=== PATIENT | female | born 1960 | race Caucasian/White ===

== ENCOUNTER 2019-12-31 12:53 | Inpatient (IN) | payer MEDICARE, MEDICAID, SELFPAY ==
[2019-12-31] VITALS (10 sets, daily range): BP systolic 117–153; BP diastolic 73–104; PULSE 82–94; RESP 16–20; TEMP 36.4–36.9; O2SAT 94–98; BMI 23.0
--- NOTE | 2019-12-31 13:01 | W.ED.ANXIETY ---
Documented by User: Bryanna Prasad 02/10/20 12:58 HPI - Anxiety General: Chief Complaint: Psychiatric Symptoms Stated Complaint: easily stressed Time Seen by Provider: 12/31/19 12:55 Source: patient Mode of arrival: ambulatory Limitations: no limitations History of Present Illness: complaint: anxiety PFS ED PFSH: Social History Smoking and tobacco status: current every day smoker Alcohol intake: never Course Vital Signs: Vital signs: Vital Signs Temperature 98.4 F 01/02/20 13:51 Pulse Rate 77 01/02/20 13:51 Respiratory Rate 18 01/02/20 13:51 Blood Pressure 122/88 01/02/20 13:51 Pulse Oximetry 99 01/02/20 13:51 MDM - Anxiety Lab Data: Labs: Lab Results 12/31/19 12/31/19 12/31/19 Range/Units 14:17 14:17 14:56 WBC 12.4 H (4.0-10.0) 10^3/ uL RBC 4.47 (4.1-5.3) 10^6/u L Hgb 13.1 (11.5-15.3) g/dL Hct 39.7 (37.0-47.0) % MCV 88.8 (81-99) fL MCH 29.3 (28.0-34.0) pg MCHC 33.0 (30.0-36.0) g/dL RDW 12.0 L (12.1-15.1) % Plt Count 328 (130-400) 10^3/c mm MPV 10.7 H (7.4-10.4) fL Neut % (Auto) 47.8 % Lymph % (Auto) 36.8 % [place] % (Auto) 10.9 % Eos % (Auto) 3.3 % Baso % (Auto) 1.0 % Neut # (Auto) 5.93 (1.8-7.7) 10^3/u L Lymph # (Auto) 4.6 (0.8-4.8) 10^3/u L [place] # (Auto) 1.4 H (0.2-0.9) 10^3/u L Eos # (Auto) 0.4 (0.0-0.8) 10^3/u L Baso # (Auto) 0.1 (0.0-0.1) 10^3/u L Nucleated RBC % (a uto) 0 % Nucleated RBCs # 0.0 /100WBC D-Dimer 0.48 (0-0.59) ug/mIFE U Sodium 137 (136-145) mmol/L Potassium 3.3 L (3.5-5.1) mmol/L Chloride 100 (98-107) mmol/L Carbon Dioxide 28 (22-29) mmol/L Anion Gap 12.3 (5-19) BUN 19 (8-23) mg/dL Creatinine 0.7 (0.5-0.9) mg/dL GFR Calculation 85.1 L (90-130) mL/min Glucose 105 (65-115) mg/dL Calculated Osmolal ity 287 (285-295) mOsm/k g Calcium 9.9 (8.5-10.5) mg/dL Total Bilirubin 0.7 (0.15-1.2) mg/dL AST 27 (0-32) U/L ALT 16 (0-33) U/L Alkaline Phosphata se 83 (35-105) IU/L Creatine Kinase 444 H* (26-192) U/L Total Protein 7.2 (6.6-8.7) g/dL Albumin 4.4 (3.5-5.2) g/dL Globulin 2.8 (1.3-4.6) g/dL Lipase 21 (13-60) U/L HCG, Qual (Negative) Urine Color (Yellow) Urine Appearance (CLEAR) Urine pH (5-7) Ur Specific Gravit y (1.005-1.030) Urine Protein (Negative) Urine Glucose (UA) (Normal) Urine Ketones (Negative) Urine Blood (Negative) Urine Nitrate (Negative) Urine Bilirubin (Negative) Urine Urobilinogen (Negative) mg/dL Ur Leukocyte Samira ase (Negative) Salicylates 1.2 L (3-10) mg/dL Urine Opiates Scre en (Negative) ng/mL Acetaminophen < 5.0 L (10-30) ug/mL Ur Barbiturates Sc reen (Negative) ng/mL Ur Phencyclidine S crn (Negative) ng/mL Ur Amphetamines Sc reen (Negative) ng/mL U Benzodiazepines Scrn (Negative) ng/mL Urine Cocaine Scre en (Negative) ng/mL U Marijuana (THC) Screen (Negative) ng/mL Ethyl Alcohol < 10 (0-10) mg/dL SARS-CoV-2 Ag (Rap id) (Negative) 12/31/19 12/31/19 12/31/19 Range/Units 15:09 15:09 15:09 WBC (4.0-10.0) 10^3/ uL RBC (4.1-5.3) 10^6/u L Hgb (11.5-15.3) g/dL Hct (37.0-47.0) % MCV (81-99) fL MCH (28.0-34.0) pg MCHC (30.0-36.0) g/dL RDW (12.1-15.1) % Plt Count (130-400) 10^3/c mm MPV (7.4-10.4) fL Neut % (Auto) % Lymph % (Auto) % [place] % (Auto) % Eos % (Auto) % Baso % (Auto) % Neut # (Auto) (1.8-7.7) 10^3/u L Lymph # (Auto) (0.8-4.8) 10^3/u L [place] # (Auto) (0.2-0.9) 10^3/u L Eos # (Auto) (0.0-0.8) 10^3/u L Baso # (Auto) (0.0-0.1) 10^3/u L Nucleated RBC % (a uto) % Nucleated RBCs # /100WBC D-Dimer (0-0.59) ug/mIFE U Sodium (136-145) mmol/L Potassium (3.5-5.1) mmol/L Chloride (98-107) mmol/L Carbon Dioxide (22-29) mmol/L Anion Gap (5-19) BUN (8-23) mg/dL Creatinine (0.5-0.9) mg/dL GFR Calculation (90-130) mL/min Glucose (65-115) mg/dL Calculated Osmolal ity (285-295) mOsm/k g Calcium (8.5-10.5) mg/dL Total Bilirubin (0.15-1.2) mg/dL AST (0-32) U/L ALT (0-33) U/L Alkaline Phosphata se (35-105) IU/L Creatine Kinase (26-192) U/L Total Protein (6.6-8.7) g/dL Albumin (3.5-5.2) g/dL Globulin (1.3-4.6) g/dL Lipase (13-60) U/L HCG, Qual Negative (Negative) Urine Color Yellow (Yellow) Urine Appearance Clear (CLEAR) Urine pH 5 (5-7) Ur Specific Gravit y 1.020 (1.005-1.030) Urine Protein Neg (Negative) Urine Glucose (UA) Norm (Normal) Urine Ketones Negative (Negative) Urine Blood Neg (Negative) Urine Nitrate Negative (Negative) Urine Bilirubin Neg (Negative) Urine Urobilinogen Norm (Negative) mg/dL Ur Leukocyte Samira ase Negative (Negative) Salicylates (3-10) mg/dL Urine Opiates Scre en (Negative) ng/mL Acetaminophen (10-30) ug/mL Ur Barbiturates Sc reen (Negative) ng/mL Ur Phencyclidine S crn (Negative) ng/mL Ur Amphetamines Sc reen (Negative) ng/mL U Benzodiazepines Scrn (Negative) ng/mL Urine Cocaine Scre en (Negative) ng/mL U Marijuana (THC) Screen (Negative) ng/mL Ethyl Alcohol (0-10) mg/dL SARS-CoV-2 Ag (Rap id) Negative (Negative) 12/31/19 Range/Units 15:09 WBC (4.0-10.0) 10^3/ uL RBC (4.1-5.3) 10^6/u L Hgb (11.5-15.3) g/dL Hct (37.0-47.0) % MCV (81-99) fL MCH (28.0-34.0) pg MCHC (30.0-36.0) g/dL RDW (12.1-15.1) % Plt Count (130-400) 10^3/c mm MPV (7.4-10.4) fL Neut % (Auto) % Lymph % (Auto) % [place] % (Auto) % Eos % (Auto) % Baso % (Auto) % Neut # (Auto) (1.8-7.7) 10^3/u L Lymph # (Auto) (0.8-4.8) 10^3/u L [place] # (Auto) (0.2-0.9) 10^3/u L Eos # (Auto) (0.0-0.8) 10^3/u L Baso # (Auto) (0.0-0.1) 10^3/u L Nucleated RBC % (a uto) % Nucleated RBCs # /100WBC D-Dimer (0-0.59) ug/mIFE U Sodium (136-145) mmol/L Potassium (3.5-5.1) mmol/L Chloride (98-107) mmol/L Carbon Dioxide (22-29) mmol/L Anion Gap (5-19) BUN (8-23) mg/dL Creatinine (0.5-0.9) mg/dL GFR Calculation (90-130) mL/min Glucose (65-115) mg/dL Calculated Osmolal ity (285-295) mOsm/k g Calcium (8.5-10.5) mg/dL Total Bilirubin (0.15-1.2) mg/dL AST (0-32) U/L ALT (0-33) U/L Alkaline Phosphata se (35-105) IU/L Creatine Kinase (26-192) U/L Total Protein (6.6-8.7) g/dL Albumin (3.5-5.2) g/dL Globulin (1.3-4.6) g/dL Lipase (13-60) U/L HCG, Qual (Negative) Urine Color (Yellow) Urine Appearance (CLEAR) Urine pH (5-7) Ur Specific Gravit y (1.005-1.030) Urine Protein (Negative) Urine Glucose (UA) (Normal) Urine Ketones (Negative) Urine Blood (Negative) Urine Nitrate (Negative) Urine Bilirubin (Negative) Urine Urobilinogen (Negative) mg/dL Ur Leukocyte Samira ase (Negative) Salicylates (3-10) mg/dL Urine Opiates Scre en Negative (Negative) ng/mL Acetaminophen (10-30) ug/mL Ur Barbiturates Sc reen Negative (Negative) ng/mL Ur Phencyclidine S crn Negative (Negative) ng/mL Ur Amphetamines Sc reen Negative (Negative) ng/mL U Benzodiazepines Scrn Negative (Negative) ng/mL Urine Cocaine Scre en Negative (Negative) ng/mL U Marijuana (THC) Screen Positive H (Negative) ng/mL Ethyl Alcohol (0-10) mg/dL SARS-CoV-2 Ag (Rap id) (Negative) Discharge Plan Discharge Patient Disposition: Admitted As Inpatient Admit Provider: Hever Chang Clinical Impression: Bipolar disorder, current episode mixed, moderate, Acute psychosis, Suicidal ideation Condition: Stable Discharge Diet: Usual diet Discharge Activity: Use walker/crutches as instructed Coding Level of Care Code ED Flag Car Driver for Chg Fwd Exam Comprehensive Documented by User: Audie South DO 01/03/20 07:51 HPI - Anxiety General: Chief Complaint: Psychiatric Symptoms Stated Complaint: easily stressed Time Seen by Provider: 12/31/19 12:55 History of Present Illness: HPI narrative: Extent 1-year-old female history of bipolar disorder she has racing thoughts and inappropriate laughter this morning. She basically last set anything we discussed. She is not been taking her medication she states she recently became homeless she had been staying at [facility] for wound revision others not allow this daily rating more. Said multiple psychiatric missions in the past seen her previously she stated that she been diagnosed with lung cancer although there is nothing on exam or imaging or any other lab work suggestive of that I do not know if we still confirmed that yet or not. Her chest x-ray certainly does not support that diagnosis. She denies any hemoptysis she has had some cough and shortness of breath and diarrhea. MD complaint: anxiety Onset (ago): day(s) Severity: mild Place: other (Homeless) History of similar episodes: Yes Provoking factors: emotional stress Relieving factors: nothing Exacerbating factors: nothing Associated symptoms: Deny anorexia, chest pain, chills, confusion, diaphoresis, fever(s), headache(s), malaise, nausea, palpitations, short of breath, syncope, vomiting or weakness Review of Systems Const: Denies: fever(s), chills, malaise or diaphoresis ENMT: Denies: throat pain, ear or mastoid pain, nasal discharge or nasal congestion Card: Denies: chest pain, palpitations or syncope Resp: Denies: dyspnea, productive cough or non-productive cough GI: Denies: nausea or vomiting : Denies: flank pain, difficulty voiding, dysuria, urinary frequency or urinary urgency Skin/Breast: Denies: rash or pruritus Neuro: Denies: headache(s) or confusion PFSH ED PFSH: Social History Smoking and tobacco status: current every day smoker Alcohol intake: never Physical Exam Const: COMMON NORMALS: no acute distress GENERAL APPEARANCE: cooperative and comfortable ORIENTATION/CONSCIOUSNESS: Yes awake, Yes oriented to person, Yes oriented to place and Yes oriented to time HENMT: COMMON NORMALS: normocephalic, atraumatic and hearing grossly normal bilaterally HEAD & SCALP: normocephalic and atraumatic Eye: COMMON NORMALS: Equal, round and reactive pupils present, EOMs intact bilaterally, conjunctivae normal and no scleral icterus CONJUNCTIVA: Yes conjunctivae normal PUPIL: Yes Equal, round and reactive pupils present Neck/C-Spine: COMMON NORMALS: full ROM, no lymphadenopathy, supple and no JVD Lymph: LYMPHATIC: no lymphadenopathy noted and no lymphedema noted Resp: COMMON NORMALS: normal respiratory effort, No retractions, No use of accessory muscles and clear to auscultation bilaterally AUSCULTATION: clear to auscultation bilaterally Cardio: COMMON NORMALS: no JVD, regular rate, regular rhythm and No murmurs present (Cardio) RATE: regular rate RHYTHM: regular rhythm GI: COMMON NORMALS: Soft to palpation and No hepatosplenomegaly present AUSCULTATION: Yes normoactive bowel sounds PALPATION: Yes Soft to palpation, No Tenderness to palpation present (GI), No Guarding due to palpation present (GI) and Yes No hepatosplenomegaly present Extremity: COMMON NORMALS: normal to inspection, capillary refill normal, no clubbing, cyanosis or edema, no calf tenderness and no pedal edema Neuro: SENSORIUM/ORIENTATION: Yes oriented to person, Yes oriented to place and Yes oriented to time Skin: COMMON NORMALS: no rashes or lesions noted GENERAL SKIN EXAM: no rashes or lesions noted Course Vital Signs: Vital signs: Vital Signs Temperature 98.4 F 01/02/20 13:51 Pulse Rate 77 01/02/20 13:51 Respiratory Rate 18 01/02/20 13:51 Blood Pressure 122/88 01/02/20 13:51 Pulse Oximetry 99 01/02/20 13:51 MDM - Anxiety MDM Narrative: Medical decision making narrative: Discussed with Dr. kendrick patient will be admitted for manic episode of her bipolar. Additionally she has vocalized suicidal ideation intermittently while in the emergency room. Orders written Lab Data: Labs: Lab Results 12/31/19 12/31/19 12/31/19 Range/Units 14:17 14:17 14:56 WBC 12.4 H (4.0-10.0) 10^3/ uL RBC 4.47 (4.1-5.3) 10^6/u L Hgb 13.1 (11.5-15.3) g/dL Hct 39.7 (37.0-47.0) % MCV 88.8 (81-99) fL MCH 29.3 (28.0-34.0) pg MCHC 33.0 (30.0-36.0) g/dL RDW 12.0 L (12.1-15.1) % Plt Count 328 (130-400) 10^3/c mm MPV 10.7 H (7.4-10.4) fL Neut % (Auto) 47.8 % Lymph % (Auto) 36.8 % [place] % (Auto) 10.9 % Eos % (Auto) 3.3 % Baso % (Auto) 1.0 % Neut # (Auto) 5.93 (1.8-7.7) 10^3/u L Lymph # (Auto) 4.6 (0.8-4.8) 10^3/u L [place] # (Auto) 1.4 H (0.2-0.9) 10^3/u L Eos # (Auto) 0.4 (0.0-0.8) 10^3/u L Baso # (Auto) 0.1 (0.0-0.1) 10^3/u L Nucleated RBC % (a uto) 0 % Nucleated RBCs # 0.0 /100WBC D-Dimer 0.48 (0-0.59) ug/mIFE U Sodium 137 (136-145) mmol/L Potassium 3.3 L (3.5-5.1) mmol/L Chloride 100 (98-107) mmol/L Carbon Dioxide 28 (22-29) mmol/L Anion Gap 12.3 (5-19) BUN 19 (8-23) mg/dL Creatinine 0.7 (0.5-0.9) mg/dL GFR Calculation 85.1 L (90-130) mL/min Glucose 105 (65-115) mg/dL Calculated Osmolal ity 287 (285-295) mOsm/k g Calcium 9.9 (8.5-10.5) mg/dL Total Bilirubin 0.7 (0.15-1.2) mg/dL AST 27 (0-32) U/L ALT 16 (0-33) U/L Alkaline Phosphata se 83 (35-105) IU/L Creatine Kinase 444 H* (26-192) U/L Total Protein 7.2 (6.6-8.7) g/dL Albumin 4.4 (3.5-5.2) g/dL Globulin 2.8 (1.3-4.6) g/dL Lipase 21 (13-60) U/L HCG, Qual (Negative) Urine Color (Yellow) Urine Appearance (CLEAR) Urine pH (5-7) Ur Specific Gravit y (1.005-1.030) Urine Protein (Negative) Urine Glucose (UA) (Normal) Urine Ketones (Negative) Urine Blood (Negative) Urine Nitrate (Negative) Urine Bilirubin (Negative) Urine Urobilinogen (Negative) mg/dL Ur Leukocyte Samira ase (Negative) Salicylates 1.2 L (3-10) mg/dL Urine Opiates Scre en (Negative) ng/mL Acetaminophen < 5.0 L (10-30) ug/mL Ur Barbiturates Sc reen (Negative) ng/mL Ur Phencyclidine S crn (Negative) ng/mL Ur Amphetamines Sc reen (Negative) ng/mL U Benzodiazepines Scrn (Negative) ng/mL Urine Cocaine Scre en (Negative) ng/mL U Marijuana (THC) Screen (Negative) ng/mL Ethyl Alcohol < 10 (0-10) mg/dL SARS-CoV-2 Ag (Rap id) (Negative) 10/03/20 10/03/20 10/03/20 Range/Units 15:09 15:09 15:09 WBC (4.0-10.0) 10^3/ uL RBC (4.1-5.3) 10^6/u L Hgb (11.5-15.3) g/dL Hct (37.0-47.0) % MCV (81-99) fL MCH (28.0-34.0) pg MCHC (30.0-36.0) g/dL RDW (12.1-15.1) % Plt Count (130-400) 10^3/c mm MPV (7.4-10.4) fL Neut % (Auto) % Lymph % (Auto) % [place] % (Auto) % Eos % (Auto) % Baso % (Auto) % Neut # (Auto) (1.8-7.7) 10^3/u L Lymph # (Auto) (0.8-4.8) 10^3/u L [place] # (Auto) (0.2-0.9) 10^3/u L Eos # (Auto) (0.0-0.8) 10^3/u L Baso # (Auto) (0.0-0.1) 10^3/u L Nucleated RBC % (a uto) % Nucleated RBCs # /100WBC D-Dimer (0-0.59) ug/mIFE U Sodium (136-145) mmol/L Potassium (3.5-5.1) mmol/L Chloride (98-107) mmol/L Carbon Dioxide (22-29) mmol/L Anion Gap (5-19) BUN (8-23) mg/dL Creatinine (0.5-0.9) mg/dL GFR Calculation (90-130) mL/min Glucose (65-115) mg/dL Calculated Osmolal ity (285-295) mOsm/k g Calcium (8.5-10.5) mg/dL Total Bilirubin (0.15-1.2) mg/dL AST (0-32) U/L ALT (0-33) U/L Alkaline Phosphata se (35-105) IU/L Creatine Kinase (26-192) U/L Total Protein (6.6-8.7) g/dL Albumin (3.5-5.2) g/dL Globulin (1.3-4.6) g/dL Lipase (13-60) U/L HCG, Qual Negative (Negative) Urine Color Yellow (Yellow) Urine Appearance Clear (CLEAR) Urine pH 5 (5-7) Ur Specific Gravit y 1.020 (1.005-1.030) Urine Protein Neg (Negative) Urine Glucose (UA) Norm (Normal) Urine Ketones Negative (Negative) Urine Blood Neg (Negative) Urine Nitrate Negative (Negative) Urine Bilirubin Neg (Negative) Urine Urobilinogen Norm (Negative) mg/dL Ur Leukocyte Samira ase Negative (Negative) Salicylates (3-10) mg/dL Urine Opiates Scre en (Negative) ng/mL Acetaminophen (10-30) ug/mL Ur Barbiturates Sc reen (Negative) ng/mL Ur Phencyclidine S crn (Negative) ng/mL Ur Amphetamines Sc reen (Negative) ng/mL U Benzodiazepines Scrn (Negative) ng/mL Urine Cocaine Scre en (Negative) ng/mL U Marijuana (THC) Screen (Negative) ng/mL Ethyl Alcohol (0-10) mg/dL SARS-CoV-2 Ag (Rap id) Negative (Negative) 12/31/19 Range/Units 15:09 WBC (4.0-10.0) 10^3/ uL RBC (4.1-5.3) 10^6/u L Hgb (11.5-15.3) g/dL Hct (37.0-47.0) % MCV (81-99) fL MCH (28.0-34.0) pg MCHC (30.0-36.0) g/dL RDW (12.1-15.1) % Plt Count (130-400) 10^3/c mm MPV (7.4-10.4) fL Neut % (Auto) % Lymph % (Auto) % [place] % (Auto) % Eos % (Auto) % Baso % (Auto) % Neut # (Auto) (1.8-7.7) 10^3/u L Lymph # (Auto) (0.8-4.8) 10^3/u L [place] # (Auto) (0.2-0.9) 10^3/u L Eos # (Auto) (0.0-0.8) 10^3/u L Baso # (Auto) (0.0-0.1) 10^3/u L Nucleated RBC % (a uto) % Nucleated RBCs # /100WBC D-Dimer (0-0.59) ug/mIFE U Sodium (136-145) mmol/L Potassium (3.5-5.1) mmol/L Chloride (98-107) mmol/L Carbon Dioxide (22-29) mmol/L Anion Gap (5-19) BUN (8-23) mg/dL Creatinine (0.5-0.9) mg/dL GFR Calculation (90-130) mL/min Glucose (65-115) mg/dL Calculated Osmolal ity (285-295) mOsm/k g Calcium (8.5-10.5) mg/dL Total Bilirubin (0.15-1.2) mg/dL AST (0-32) U/L ALT (0-33) U/L Alkaline Phosphata se (35-105) IU/L Creatine Kinase (26-192) U/L Total Protein (6.6-8.7) g/dL Albumin (3.5-5.2) g/dL Globulin (1.3-4.6) g/dL Lipase (13-60) U/L HCG, Qual (Negative) Urine Color (Yellow) Urine Appearance (CLEAR) Urine pH (5-7) Ur Specific Gravit y (1.005-1.030) Urine Protein (Negative) Urine Glucose (UA) (Normal) Urine Ketones (Negative) Urine Blood (Negative) Urine Nitrate (Negative) Urine Bilirubin (Negative) Urine Urobilinogen (Negative) mg/dL Ur Leukocyte Samira ase (Negative) Salicylates (3-10) mg/dL Urine Opiates Scre en Negative (Negative) ng/mL Acetaminophen (10-30) ug/mL Ur Barbiturates Sc reen Negative (Negative) ng/mL Ur Phencyclidine S crn Negative (Negative) ng/mL Ur Amphetamines Sc reen Negative (Negative) ng/mL U Benzodiazepines Scrn Negative (Negative) ng/mL Urine Cocaine Scre en Negative (Negative) ng/mL U Marijuana (THC) Screen Positive H (Negative) ng/mL Ethyl Alcohol (0-10) mg/dL SARS-CoV-2 Ag (Rap id) (Negative) Discharge Plan Discharge Patient Disposition: Admitted As Inpatient Admit Provider: Hever Chang Clinical Impression: Bipolar disorder, current episode mixed, moderate, Acute psychosis, Suicidal ideation Condition: Stable Discharge Diet: Usual diet Discharge Activity: Use walker/crutches as instructed Coding Level of Care Code ED Flag Car Driver for Joyg Fwd Exam Comprehensive
--- NOTE | 2019-12-31 13:18 | XRR_ITS ---
PROCEDURE INFORMATION: Exam: XR Chest, 1 View Exam date and time: 12/31/2019 1:19 PM Age: 59 years old Clinical indication: Cough and dyspnea; Additional info: Dyspnea/cough TECHNIQUE: Imaging protocol: XR of the chest Views: 1 view. COMPARISON: CR Chest 1 [place] [id number] 09/15/2018 5:40 PM FINDINGS: Tubes, catheters and devices: Stable surgical clips over the right hilum. Lungs: Stable hyperaerated lungs consistent with deep inspiratory effort vs significant reactive airway disease vs moderate COPD . Pleural space: Unremarkable. No pleural effusion. No pneumothorax. Heart/Mediastinum: Unremarkable. No cardiomegaly. Vasculature: Calcification of the thoracic aorta and/or great vessels consistent with atherosclerotic vessel disease. Bones/joints: Unremarkable. XR/XR chest 1V portable [id number] IMPRESSION: Stable hyperaerated lungs consistent with deep inspiratory effort vs significant reactive airway disease vs moderate COPD .
[2019-12-31] MEDS: LORazepam 2 mg/mL INJ 1 mL IM (14:11)
[2019-12-31] MEDS: ziprasidone 20 mg/mL SDV 10 MG IM (14:12)
[2019-12-31 14:46] LABS: Basophils # 0.1 10^3/uL (0.0-0.1); Eosinophils # 0.4 10^3/uL (0.0-0.8); Eosinophils % 3.3 %; Hematocrit 39.7 % (37.0-47.0); Hemoglobin 13.1 g/dL (11.5-15.3); Lymphocytes # 4.6 10^3/uL (0.8-4.8); Lymphocytes % 36.8 %; Mean Corpuscular Hemoglobin 29.3 pg (28.0-34.0); Mean Corpuscular Volume 88.8 fL (81-99); Mean Platelet Volume 10.7 fL (7.4-10.4); Monocytes # 1.4 10^3/uL (0.2-0.9); Monocytes % 10.9 %; Neutrophils # 5.93 10^3/uL (1.8-7.7); Neutrophils % 47.8 %; Nucleated Red Blood Cells % 0 %; Platelet Count 328 10^3/cmm (130-400); Red Blood Count 4.47 10^6/uL (4.1-5.3); White Blood Count 12.4 10^3/uL (4.0-10.0)
[2019-12-31 15:13] LABS: Alanine Aminotransferase 16 U/L (0-33); Albumin Level 4.4 g/dL (3.5-5.2); Alkaline Phosphatase 83 IU/L (35-105); Anion Gap 12.3 (5-19); Aspartate Amino Transferase 27 U/L (0-32); Blood Urea Nitrogen 19 mg/dL (8-23); Calcium 9.9 mg/dL (8.5-10.5); Carbon Dioxide 28 mmol/L (22-29); Chloride 100 mmol/L (98-107); Globulin 2.8 g/dL (1.3-4.6); Glomerular Filtration Rate 85.1 mL/min (90-130); Glucose 105 mg/dL (65-115); Lipase 21 U/L (13-60); Osmolality Calculated 287 mOsm/kg (285-295); Potassium 3.3 mmol/L (3.5-5.1); Salicylate 1.2 mg/dL (3-10); Sodium 137 mmol/L (136-145); Total Bilirubin 0.7 mg/dL (0.15-1.2); Total Protein 7.2 g/dL (6.6-8.7)
[2019-12-31 15:16] LABS: Add Urine Microscopic? NO
[2019-12-31 15:18] LABS: Acetaminophen < 5.0 ug/mL (10-30); Alcohol Level < 10 mg/dL (0-10)
[2019-12-31 15:19] LABS: Creatine Phosphokinase 444 U/L (26-192)
[2019-12-31 15:26] LABS: Urine Appearance Clear (CLEAR); Urine Color Yellow (Yellow)
[2019-12-31 15:27] LABS: Bilirubin Urine Neg (Negative); Blood Urine Neg (Negative); Glucose Urine UA Norm (Normal); Ketones Urine Negative (Negative); Leukocyte Esterase Urine Negative (Negative); Nitrate Urine Negative (Negative); Protein Urine Neg (Negative); Urobilinogen Urine Norm (Negative); pH Urine 5 (5-7)
[2019-12-31 15:28] LABS: HCG Qualitative Urine. Negative (Negative)
[2019-12-31 15:33] LABS: Amphetamines Screen Urine Negative (Negative); Barbiturates Screen Urine Negative (Negative); Benzodiazepines Screen Urine Negative (Negative); Cocaine Screen Urine Negative (Negative); Opiate Screen Urine Negative (Negative); PCP Screen Urine Negative (Negative); THC Screen Urine Positive (Negative)
[2019-12-31 15:36] LABS: D Dimer 0.48 ug/mIFEU (0-0.59)
[2019-12-31 15:36] LABS: SARS Covid-2 Antigen Negative (Negative)
[2019-12-31] MEDS: potassium chloride oral liq 20 mEq/15 mL UDC 40 MEQ PO (16:41)
[2020-01-01] MEDS: hyDROXYzine 25 mg Capsule 50 MG PO ×2 (00:05→20:12)
[2020-01-01] MEDS: acetaminophen 325 mg Tablet 650 MG PO (00:05)
--- NOTE | 2020-01-01 00:09 | PC.NURSE ---
PRN VISTARIL ADMINISTERED VISTARIL 50MG PO FOR PT C/O INCREASING ANXIETY. WILL MONITOR FOR MEDICATION EFFECTIVENESS.
[2020-01-01 06:00] VITALS: BP 129/83; PULSE 87; RESP 18; TEMP 36.5; O2SAT 95
[2020-01-01 07:20] LABS: Glucose Point of Care 107 mg/dL (70-110)
[2020-01-01] MEDS: venlafaxine ER (24HR) 150 mg Capsule PO (08:02)
[2020-01-01] MEDS: donepezil 5 MG Tablet 10 MG PO (08:02)
[2020-01-01] MEDS: metformin 500 mg Tablet PO (08:03)
[2020-01-01] MEDS: metoprolol tartrate 50 mg Tablet PO (08:03)
[2020-01-01] MEDS: hydroCHLOROthiazide 25 mg Tablet PO (08:03)
[2020-01-01] MEDS: levothyroxine 125 mcg Tablet PO (08:03)
[2020-01-01] MEDS: gabapentin 400 mg Capsule 800 MG PO ×3 (08:03→20:12)
[2020-01-01] MEDS: lisinopril 20 mg Tablet PO (08:03)
[2020-01-01] MEDS: montelukast sodium 10 mg Tablet PO (08:03)
[2020-01-01] MEDS: BuSPIRONE 10 mg Tablet PO ×2 (08:03→17:05)
[2020-01-01 09:19] LABS: Anion Gap 12.6 (5-19); Blood Urea Nitrogen 19 mg/dL (8-23); Calcium 9.4 mg/dL (8.5-10.5); Carbon Dioxide 25 mmol/L (22-29); Chloride 105 mmol/L (98-107); Creatine Phosphokinase 229 U/L (26-192); Glomerular Filtration Rate 101.6 mL/min (90-130); Glucose 179 mg/dL (65-115); Osmolality Calculated 295 mOsm/kg (285-295); Potassium 3.6 mmol/L (3.5-5.1); Sodium 139 mmol/L (136-145)
--- NOTE | 2020-01-01 10:20 | PM.NHP ---
Providers/Chief Complaint Admitting Physician: Davis Cannon M.D. Primary Care Provider: Adilene Mathew MD Referral Source: [facility] Chief Complaint: easily stressed HPI NPU History of Present Illness Manasa Shetty is a 59 year old female with a history of bipolar disorder presented to the ER with racing thoughts and inappropriate laughter. She laughed at anything we discussed. She says she has been taking her medication. She states she recently became homeless. [place] [facility] [place] and was like to go back there. She has had multiple psychiatric admissions in the past. She says she been diagnosed with lung cancer although there is nothing on exam or imaging or any other lab work suggestive of that. Her chest x-ray does not support the diagnosis. She denies any hemoptysis but has had some cough, shortness of breath and diarrhea. Review of Systems Narrative: Const: Denies: fever(s), chills, malaise or diaphoresis ENMT: Denies: throat pain, ear or mastoid pain, nasal discharge or nasal congestion Card: Denies: chest pain, palpitations or syncope Resp: Denies: dyspnea, productive cough or non-productive cough GI: Denies: nausea or vomiting : Denies: flank pain, difficulty voiding, dysuria, urinary frequency or urinary urgency Skin/Breast: Denies: rash or pruritus Neuro: Denies: headache(s) or confusion Meds NPU Home Medications Medication Instructions Recorded Confirmed Last Taken Type buspirone 10 mg PO BID 12/31/19 12/31/19 Unknown History donepezil 10 mg PO DAILY 12/31/19 12/31/19 Unknown History fluticasone propionate See Rx Instructions .ROUTE .COMPLEX 12/31/19 12/31/19 Unknown History gabapentin 800 mg PO TID 12/31/19 12/31/19 Unknown History levothyroxine 125 mcg PO DAILY 12/31/19 12/31/19 Unknown History lisinopril-hydrochlorothiazide 1 tab PO DAILY 12/31/19 12/31/19 Unknown History metoprolol tartrate 50 mg PO DAILY 12/31/19 12/31/19 Unknown History montelukast 10 mg PO DAILY 12/31/19 12/31/19 Unknown History metformin [Glucophage] 500 mg PO DAILY 01/01/20 01/01/20 12/31/19 History venlafaxine 75 mg PO DAILY 01/01/20 01/01/20 12/31/19 History Allergies Allergy/AdvReac Type Severity Reaction Status Date / Time Sulfa (Sulfonamide Allergy ADR-Seizure Verified 12/31/19 13:20 Antibiotics) [facility] NPU Other Psychiatric History: Other Psychiatric History: Patient states she has had episodes like this since early . She had been on lithium and Cymbalta. She was taken off of both of them because of an evolving liver problem. A review of the NIH literature and it correlates there is no known interaction between liver pathology and lithium, so I'm reinstating it without the Cymbalta. She remembers that it was helpful in stabilizing her mood. Supplemental [facility] Information: The patient indicates that her dad was profoundly violent from PTSD which he acquired in [place]. Mental Status Exam MSE Comments: Ms. Shetty is a 59-year-old female who presents at her stated age. She is somewhat disheveled and disorganized. There is significant apparently uncontrollable movement disorder, as she never sits still when in a chair. Although she can ambulate with a walker and the movement symptoms are suppressed. Mood is anxious and dysphoric. Affect is clearly inappropriate at times. She frequently laughs as she describes her unhappiness and troublesome symptoms. Thought processes are racing and given to looseness of association or flight of ideas. There is, however, no evidence of psychosis such as but not limited to hallucinations, delusions or ideas of reference. Cognitive functions are partially intact; she understood very well my explanation of my planned pharmacotherapy and, ultimately, discharge planning. She remembers me from years ago. She feels hopeless, as if her disease will always burdening her with misfortune and failure. Suicidal ideation persists but there is no homicidal ideation, plan or intent. Vitals/I&O/Wt Last Vital Signs Temp 97.7 F 01/01/20 06:00 Pulse 87 01/01/20 06:00 Resp 18 01/01/20 06:00 BP 129/83 01/01/20 06:00 Pulse Ox 95 01/01/20 06:00 Weight last 48 hrs Weight 178 lb Weight 130 lb Data NPU : 12/31/19 14:17 01/01/20 08:40 A&P Assessment and plan (1) Bipolar disorder, current episode mixed, moderate: The patient is mental status clearly documents a mixed episode. I believe lithium will be helpful and the context of weaning her off of venlafaxine at a large dose. Status: Acute Involuntary Hold Information 96 Hour Hold: 96 Hour Involuntary Admission: Yes 96 Hour Hold Ending Date: 01/06/20 96 Hour Hold Ending Time: 12:01 Attestations [facility] Medical Necessity Statement*: I anticipate 5-7 midnights additional hospital stay Time Spent in Patient Care: Greater than 35 minutes (>than 50% of time spent in counselling and/or direct pt care on unit). 90 minutes. Consultation with pharmacy. Consultation with medications nurse. Order entries. Patient interview and documentation. Patient education. 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
[2020-01-01] MEDS: loperamide 2 mg Capsule PO (12:51)
[2020-01-01 13:15] VITALS: BP 99/65; PULSE 68; RESP 16; TEMP 36.3; O2SAT 98
[2020-01-01] MEDS: lithium carbonate 150 mg Capsule PO (17:04)
[2020-01-01] MEDS: nicotine 2 mg Gum BUCCAL ×2 (17:05→20:11)
[2020-01-01] MEDS: venlafaxine ER (24HR) 75 mg Capsule PO (17:05)
[2020-01-01] MEDS: trazodone 50 mg Tablet PO (20:12)
[2020-01-01 20:58] LABS: Glucose Point of Care 126 mg/dL (70-110)
[2020-01-01 21:12] VITALS: BP 105/71; PULSE 73; RESP 17; TEMP 36.8; O2SAT 97
[2020-01-02 05:10] VITALS: BP 112/71; PULSE 81; RESP 16; TEMP 36.5; O2SAT 98
[2020-01-02] MEDS: albuterol 8 gm MDI 2 PUFF INHALATION ×2 (05:53→09:04)
[2020-01-02 05:54] VITALS: PULSE 65; RESP 18; O2SAT 95
[2020-01-02] MEDS: venlafaxine ER (24HR) 150 mg Capsule PO (06:13)
[2020-01-02 06:51] LABS: Glucose Point of Care 98 mg/dL (70-110)
[2020-01-02] MEDS: lithium carbonate 150 mg Capsule PO (08:01)
[2020-01-02] MEDS: gabapentin 400 mg Capsule 800 MG PO (08:01)
[2020-01-02] MEDS: BuSPIRONE 10 mg Tablet PO (08:02)
[2020-01-02] MEDS: metoprolol tartrate 50 mg Tablet PO (08:02)
[2020-01-02] MEDS: hydroCHLOROthiazide 25 mg Tablet PO (08:02)
[2020-01-02] MEDS: levothyroxine 125 mcg Tablet PO (08:02)
[2020-01-02] MEDS: montelukast sodium 10 mg Tablet PO (08:02)
[2020-01-02] MEDS: lisinopril 20 mg Tablet PO (08:02)
[2020-01-02] MEDS: donepezil 5 MG Tablet 10 MG PO (08:02)
[2020-01-02] MEDS: loperamide 2 mg Capsule PO (08:02)
[2020-01-02] MEDS: metformin 500 mg Tablet PO (08:02)
[2020-01-02] MEDS: nicotine 2 mg Gum BUCCAL (08:22)
[2020-01-02] MEDS: amoxicillin-clav 875-125 mg Tablet 1 TAB PO (08:22)
[2020-01-02 09:03] VITALS: PULSE 76; RESP 18; O2SAT 98
[2020-01-02 09:08] VITALS: PULSE 77
--- NOTE | 2020-01-02 13:27 | P.DS_ITS ---
Diagnoses at Discharge Discharge Diagnosis (1) Bipolar disorder, current episode mixed, moderate: Status: Chronic Problem details: The patient has been stepped down to a lower dose of venlafaxine, with possible weaning her off of it. Reason for Visit Reason for Visit: easily stressed Hospital Course Hospital Course Patient came here and distress she had some memory problems and was confused. Her medications have been stabilized and she is now much clearer. She is on a walker and can ambulate with its assistance. She is eager to pursue discharge and is competent, per my assessment today, to return to the outpatient environment with outpatient follow-up and home health care. Involuntary Hold Information 96 Hour Hold: 96 Hour Involuntary Admission: No 96 Hour Hold Ending Date: 01/06/20 96 Hour Hold Ending Time: 12:01 Comments: Rescission application filed. Mental Status Exam MSE Comments: Ms. Tate is a 59-year-old female who presents at her stated age. She is not disheveled and much better organized. There is significant apparently uncontrollable movement disorder, as she never sits still when in a chair. Although she can ambulate with a walker and the movement symptoms are diminished. Mood is cheerful today and affect is bright. Thought processes are measured and free of looseness of association and flight of ideas. There is, no evidence of psychosis such as but not limited to hallucinations, delusions or ideas of reference. Cognitive functions are partially intact; she understood very well my explanation of my planned pharmacotherapy and, ultimately, discharge planning. She remembers me from years ago. She feels hopeful. She denies suicidal or homicidal ideation, plan or intent. Cognitive functions are coherent and free of disruption from psychosis. She has very quickly and very rapidly improved. Discharge Data Data Completed and Pending: Completed Studies During Hospitalization Category Date Time Status XR chest 1V bessy ble 00253 Stat Exams 12/31/19 13:18 Completed Labs from last 24 hours 01/02/20 01/01/20 06:44 20:54 POC Glucose 98 126 Vitals: Last Vital Signs Temp 97.7 F 01/02/20 05:10 Pulse 77 01/02/20 09:08 Resp 18 01/02/20 09:03 BP 112/71 01/02/20 05:10 Pulse Ox 98 01/02/20 09:03 Discharge Plan Discharge Patient Disposition: Home Condition: Stable Prescriptions: New venlafaxine 150 mg Capsule,Extended Release 24hr 150 mg PO QAM 30 Days Qty: 30 RF: 1 amoxicillin-pot clavulanate 875-125 mg Tablet 1 tab PO BID 7 Days Qty: 14 RF: 0 ipratropium-albuterol 0.5 mg-3 mg(2.5 mg base)/3 mL Solution For Nebulization 3 ml inhalation Q4H PRN (Reason: Shortness Of Breath) 30 Days Qty: 1 RF: 0 Advair Diskus 500-50 mcg/dose Blister With Device 1 puff inhalation BID.RESPIRATORY 30 Days Qty: 1 RF: 0 Ventolin HFA 90 mcg/actuation Hfa Aerosol Inhaler 2 puff inhalation Q4H.RESPIRATORY PRN (Reason: Shortness Of Breath) 30 Days Qty: 1 RF: 1 lithium carbonate 150 mg Capsule 150 mg PO BID 30 Days Qty: 60 RF: 1 Continued Glucophage 500 mg tablet 500 mg PO DAILY 30 Days Qty: 30 RF: 1 donepezil 10 mg tablet 10 mg PO DAILY 30 Days Qty: 30 RF: 0 gabapentin 800 mg tablet 800 mg PO TID 30 Days Qty: 90 RF: 0 levothyroxine 125 mcg tablet 125 mcg PO DAILY 30 Days Qty: 30 RF: 0 buspirone 10 mg tablet 10 mg PO BID 30 Days Qty: 60 RF: 1 metoprolol tartrate 50 mg tablet 50 mg PO DAILY 30 Days Qty: 30 RF: 1 lisinopril-hydrochlorothiazide 20-25 mg tablet 1 tab PO DAILY 30 Days Qty: 30 RF: 1 montelukast 10 mg tablet 10 mg PO DAILY 30 Days Qty: 30 RF: 1 fluticasone propionate 50 mcg/actuation spray,suspension See Rx Instructions .ROUTE .COMPLEX 30 Days Qty: 1 RF: 0 venlafaxine 75 mg Tablet Extended Release 24hr 75 mg PO DAILY 6 Days Qty: 6 RF: 0 Discharge Orders: Discharge Order (Routine); Ordered 01/02/20 Ordered By: Davis Cannon Discharge Diet: Usual diet Discharge Activity: Use walker/crutches as instructed Discharge Attestations NPU Time Spent in Discharge Care*: greater than 30 min Specific Discharge Activities: Specific discharge activities: educating patient, discussing with pcp/other providers, discussing with case worker/social workers/dc planners, documenting/other paperwork and evaluating patient/reviewing data Other discharge activites (optional): Risk assessment Status at Discharge: Cognitive status at discharge: mildly impaired cognition , Behavioral status at discharge: cooperative , Overall status at discharge: patient is back to baseline Coding Level of Care Code 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
[2020-01-02 13:51] VITALS: BP 122/88; PULSE 77; RESP 18; TEMP 36.9; O2SAT 99
== END 2020-01-02 14:44 | disposition home or self-care (01) | DRG 885 ==
LOC: ER 16:25 → NP 16:45
PROVIDERS: Family Medicine; Admitting Provider Psychiatry & Neurology Psychiatry; PCP Internal Medicine; Visit Provider Psychiatry & Neurology Psychiatry
DX: F31.62 Bipolar disorder, current episode mixed, moderate (principal)
CPT/HCPCS: 12345; 36415; 36416; 71045; 80048; 80053; 80306; 80307; 81003; 81025; 82550; 82962; 83690; 85025; 85378; 87426; 94640; 96372; 99284; J2060; J3486; J3535

== ENCOUNTER 2020-01-31 07:29 | Emergency (ER) | payer MEDICARE, SELFPAY ==
--- NOTE | 2020-01-31 07:30 | XR_ITS ---
WS: [id number] Portable AP upright chest, 01/31/2020 Clinical Data: dyspnea/cough Comparison: Portable chest, 12/31/2019. Findings: No nodules, masses or effusions are seen. The heart is normal. The pulmonary vascularity is not increased. No pneumonia or pneumothorax is seen. The aortic arch shows calcification. Monitor le ads are on the chest wall. XR/XR chest 1V portable [id number] Impression: Atherosclerosis.
[2020-01-31 07:32] VITALS: BP 127/69; PULSE 69; RESP 16; TEMP 36.6; O2SAT 97; BMI 24.7
--- NOTE | 2020-01-31 07:40 | W.ED.CHESTPA ---
HPI - Chest Pain General: Chief Complaint: Chest Pain Stated Complaint: chest pain / sob Time Seen by Provider: 01/31/20 07:29 History of Present Illness: HPI narrative: 59-year-old female with a history of COPD. Patient presents with complaints of chest pain that began last night have been intermittent through the night began while she was at rest it began. The pain emanates from the center of her chest she is not having any radiation of the pain into the neck or arm. She does have a felt shortness of breath and dizziness with it she denies any vomiting or diarrhea no recent flulike symptoms. She is not had any hemoptysis. She has had discomfort like this in the past. Patient states she has a history of lung cancer although that is been in question before there is no supporting medical records in the chest x-ray does not support that diagnosis either. MD complaint: chest pain Pertinent past history: other (Lung cancer) Onset (ago): hour(s) Timing of current episode: episodic and still present Prior episodes: Yes Onset: during rest Pain location: substernal Pain radiation: none Severity: severe Quality: tightness and heaviness Relieving factors: nothing Exacerbating factors: nothing Associated symptoms: Deny abdominal pain, diaphoresis, dyspnea, fever(s), leg edema, nausea, palpitations, sense of impending doom, syncope or vomiting Treatment prior to arrival: none Review of Systems Const: Denies: fever(s) or diaphoresis ENMT: Denies: throat pain, ear or mastoid pain, nasal discharge or nasal congestion Card: Denies: palpitations or syncope Resp: Denies: dyspnea GI: Denies: abdominal pain, nausea or vomiting : Denies: flank pain, difficulty voiding, dysuria, urinary frequency or urinary urgency Skin/Breast: Denies: rash or pruritus PFS ED PFSH: Social History Smoking and tobacco status: current every day smoker Alcohol intake: never Physical Exam Const: COMMON NORMALS: no acute distress GENERAL APPEARANCE: cooperative and comfortable ORIENTATION/CONSCIOUSNESS: Yes awake, Yes oriented to person, Yes oriented to place and Yes oriented to time HENMT: COMMON NORMALS: normocephalic, atraumatic and hearing grossly normal bilaterally HEAD & SCALP: normocephalic and atraumatic Eye: COMMON NORMALS: Equal, round and reactive pupils present, EOMs intact bilaterally, conjunctivae normal and no scleral icterus CONJUNCTIVA: Yes conjunctivae normal PUPIL: Yes Equal, round and reactive pupils present Neck/C-Spine: COMMON NORMALS: no JVD Resp: COMMON NORMALS: normal respiratory effort, No retractions, No use of accessory muscles and clear to auscultation bilaterally AUSCULTATION: clear to auscultation bilaterally Cardio: COMMON NORMALS: no JVD, regular rate, regular rhythm and No murmurs present (Cardio) RATE: regular rate RHYTHM: regular rhythm GI: COMMON NORMALS: Soft to palpation and No hepatosplenomegaly present AUSCULTATION: Yes normoactive bowel sounds PALPATION: Yes Soft to palpation, No Tenderness to palpation present (GI), No Guarding due to palpation present (GI) and Yes No hepatosplenomegaly present Extremity: COMMON NORMALS: normal to inspection, capillary refill normal, no clubbing, cyanosis or edema, no calf tenderness and no pedal edema Neuro: SENSORIUM/ORIENTATION: Yes oriented to person, Yes oriented to place and Yes oriented to time Skin: COMMON NORMALS: no rashes or lesions noted GENERAL SKIN EXAM: no rashes or lesions noted Course Vital Signs: Vital signs: Vital Signs Temperature 97.9 F 01/31/20 07:32 Pulse Rate 72 01/31/20 13:26 Respiratory Rate 18 01/31/20 13:26 Blood Pressure 129/61 01/31/20 13:26 Pulse Oximetry 98 01/31/20 13:26 MDM - Chest Pain MDM Narrative: Medical decision making narrative: Sats normal on room air. We will discharge patient home Medrol Dosepak albuterol inhaler to use as needed recheck with primary care provider within the week Lab Data: Labs: Lab Results 01/31/20 01/31/20 01/31/20 Range/Units 07:44 07:44 07:44 WBC 9.3 (4.0-10.0) 10^3/ uL RBC 4.45 (4.1-5.3) 10^6/u L Hgb 13.0 (11.5-15.3) g/dL Hct 40.1 (37.0-47.0) % MCV 90.1 (81-99) fL MCH 29.2 (28.0-34.0) pg MCHC 32.4 (30.0-36.0) g/dL RDW 12.5 (12.1-15.1) % Plt Count 317 (130-400) 10^3/c mm MPV 9.9 (7.4-10.4) fL Neut % (Auto) 61.0 % Lymph % (Auto) 23.1 % [place] % (Auto) 9.7 % Eos % (Auto) 4.8 % Baso % (Auto) 1.2 % Neut # (Auto) 5.65 (1.8-7.7) 10^3/u L Lymph # (Auto) 2.1 (0.8-4.8) 10^3/u L [place] # (Auto) 0.9 (0.2-0.9) 10^3/u L Eos # (Auto) 0.4 (0.0-0.8) 10^3/u L Baso # (Auto) 0.1 (0.0-0.1) 10^3/u L Nucleated RBC % (a uto) 0 % Nucleated RBCs # 0.0 /100WBC D-Dimer 0.58 (0-0.59) ug/mIFE U Sodium 140 (136-145) mmol/L Potassium 4.1 (3.5-5.1) mmol/L Chloride 104 (98-107) mmol/L Carbon Dioxide 27 (22-29) mmol/L Anion Gap 13.1 (5-19) BUN 18 (8-23) mg/dL Creatinine 0.9 (0.5-0.9) mg/dL GFR Calculation 63.7 L (90-130) mL/min Glucose 119 H (65-115) mg/dL Calculated Osmolal ity 293 (285-295) mOsm/k g Calcium 9.6 (8.5-10.5) mg/dL Total Bilirubin 0.5 (0.15-1.2) mg/dL AST 15 (0-32) U/L ALT 13 (0-33) U/L Alkaline Phosphata se 89 (35-105) IU/L Troponin T Baselin e (0-10) ng/L Troponin T 120 Min [place] (0-10) ng/L Delta Troponin T (0-10) ABS# Total Protein 6.6 (6.6-8.7) g/dL Albumin 3.8 (3.5-5.2) g/dL Globulin 2.8 (1.3-4.6) g/dL 01/31/20 01/31/20 Range/Units 07:44 11:04 WBC (4.0-10.0) 10^3/ uL RBC (4.1-5.3) 10^6/u L Hgb (11.5-15.3) g/dL Hct (37.0-47.0) % MCV (81-99) fL MCH (28.0-34.0) pg MCHC (30.0-36.0) g/dL RDW (12.1-15.1) % Plt Count (130-400) 10^3/c mm MPV (7.4-10.4) fL Neut % (Auto) % Lymph % (Auto) % [place] % (Auto) % Eos % (Auto) % Baso % (Auto) % Neut # (Auto) (1.8-7.7) 10^3/u L Lymph # (Auto) (0.8-4.8) 10^3/u L [place] # (Auto) (0.2-0.9) 10^3/u L Eos # (Auto) (0.0-0.8) 10^3/u L Baso # (Auto) (0.0-0.1) 10^3/u L Nucleated RBC % (a uto) % Nucleated RBCs # /100WBC D-Dimer (0-0.59) ug/mIFE U Sodium (136-145) mmol/L Potassium (3.5-5.1) mmol/L Chloride (98-107) mmol/L Carbon Dioxide (22-29) mmol/L Anion Gap (5-19) BUN (8-23) mg/dL Creatinine (0.5-0.9) mg/dL GFR Calculation (90-130) mL/min Glucose (65-115) mg/dL Calculated Osmolal ity (285-295) mOsm/k g Calcium (8.5-10.5) mg/dL Total Bilirubin (0.15-1.2) mg/dL AST (0-32) U/L ALT (0-33) U/L Alkaline Phosphata se (35-105) IU/L Troponin T Baselin e 13 H (0-10) ng/L Troponin T 120 Min [place] 12.34 H (0-10) ng/L Delta Troponin T -0.66 L (0-10) ABS# Total Protein (6.6-8.7) g/dL Albumin (3.5-5.2) g/dL Globulin (1.3-4.6) g/dL Discharge Plan Discharge Patient Disposition: Home Clinical Impression: COPD with acute exacerbation, Bipolar disorder Condition: Stable Prescriptions: New Medrol (Bertin) 4 mg tablets,dose pack See Rx Instructions .ROUTE .COMPLEX Qty: 21 RF: 0 albuterol sulfate 90 mcg/actuation HFA aerosol inhaler 2 inh INHALATION Q4H PRN (Reason: shortness of breath or wheezing) Qty: 18 RF: 0 No Action venlafaxine 150 mg Capsule,Extended Release 24hr 150 mg PO QAM 30 Days Qty: 30 RF: 1 albuterol sulfate [Ventolin HFA] 90 mcg/actuation Hfa Aerosol Inhaler 2 puff inhalation Q4H.RESPIRATORY PRN (Reason: Shortness Of Breath) 30 Days Qty: 1 RF: 1 lithium carbonate 150 mg Capsule 150 mg PO BID 30 Days Qty: 60 RF: 1 metformin [Glucophage] 500 mg tablet 500 mg PO DAILY 30 Days Qty: 30 RF: 1 donepezil 10 mg tablet 10 mg PO DAILY 30 Days Qty: 30 RF: 0 gabapentin 800 mg tablet 800 mg PO TID 30 Days Qty: 90 RF: 0 levothyroxine 125 mcg tablet 125 mcg PO DAILY 30 Days Qty: 30 RF: 0 buspirone 10 mg tablet 10 mg PO BID 30 Days Qty: 60 RF: 1 metoprolol tartrate 50 mg tablet 50 mg PO DAILY 30 Days Qty: 30 RF: 1 lisinopril-hydrochlorothiazide 20-25 mg tablet 1 tab PO DAILY 30 Days Qty: 30 RF: 1 montelukast 10 mg tablet 10 mg PO DAILY 30 Days Qty: 30 RF: 1 fluticasone propionate 50 mcg/actuation spray,suspension See Rx Instructions .ROUTE .COMPLEX 30 Days Qty: 1 RF: 0 venlafaxine 75 mg Tablet Extended Release 24hr 75 mg PO DAILY 6 Days Qty: 6 RF: 0 ibuprofen 200 mg Tablet 600 mg PO PRN RF: 0 Discharge Orders: Discharge Order (Routine); Ordered 01/31/20 Ordered By: Audie South Referrals: Adilene Mathew MD [Primary Care Provider] - Discharge Date/Time: 01/31/20 13:27 Coding Level of Care Code ED Traveling Buyer for [facility] Fwd Exam Comprehensive
--- NOTE | 2020-01-31 07:41 | ECG_ITS ---
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 Measurements Intervals [place] Rate: 72 P: 72 MS: 165 QRS: 24 QRSD: 86 T: 49 QT: 400 QTc: 441 Interpretive Statements SINUS RHYTHM LOW QRS VOLTAGE IN PRECORDIAL LEADS [QRS DEFLECTION < 1.0 mV IN CHEST LEADS] Compared to ECG 09/15/2018 17:18:32 Low QRS voltage now present Incomplete right bundle-branch block no longer present Electronically Signed On 01-31-2020 20:15:01 INSIDE SALES SUPERVISOR by Bg Mccormack M.D. [id number] f
[2020-01-31 07:48] LABS: Basophils # 0.1 10^3/uL (0.0-0.1); Basophils % 1.2 %; Eosinophils # 0.4 10^3/uL (0.0-0.8); Eosinophils % 4.8 %; Hematocrit 40.1 % (37.0-47.0); Lymphocytes # 2.1 10^3/uL (0.8-4.8); Lymphocytes % 23.1 %; Mean Corpuscular HGB Conc 32.4 g/dL (30.0-36.0); Mean Corpuscular Hemoglobin 29.2 pg (28.0-34.0); Mean Corpuscular Volume 90.1 fL (81-99); Mean Platelet Volume 9.9 fL (7.4-10.4); Monocytes # 0.9 10^3/uL (0.2-0.9); Monocytes % 9.7 %; Neutrophils # 5.65 10^3/uL (1.8-7.7); Nucleated Red Blood Cells % 0 %; Platelet Count 317 10^3/cmm (130-400); Red Blood Count 4.45 10^6/uL (4.1-5.3); Red Cell Distribution Width 12.5 % (12.1-15.1); White Blood Count 9.3 10^3/uL (4.0-10.0)
[2020-01-31 07:55] VITALS: RESP 15
[2020-01-31] MEDS: morphine 4 mg/mL SDV 1 mL IVP (07:55)
[2020-01-31] MEDS: lidocaine 2% viscous 15 ML, aluminum-mag hydrox-simethicon 30 ML, sucralfate oral liq 1 GM PO (07:55)
[2020-01-31] MEDS: ondansetron 2 mg/ML SDV 2 mL 4 MG IVP (07:55)
[2020-01-31 08:07] LABS: D Dimer 0.58 ug/mIFEU (0-0.59)
[2020-01-31 08:08] VITALS: RESP 16
[2020-01-31] MEDS: morphine 4 mg/mL SDV 1 mL 2 MG IVP (08:08)
[2020-01-31 08:10] LABS: Alanine Aminotransferase 13 U/L (0-33); Albumin Level 3.8 g/dL (3.5-5.2); Alkaline Phosphatase 89 IU/L (35-105); Anion Gap 13.1 (5-19); Aspartate Amino Transferase 15 U/L (0-32); Blood Urea Nitrogen 18 mg/dL (8-23); Calcium 9.6 mg/dL (8.5-10.5); Carbon Dioxide 27 mmol/L (22-29); Chloride 104 mmol/L (98-107); Globulin 2.8 g/dL (1.3-4.6); Glomerular Filtration Rate 63.7 mL/min (90-130); Glucose 119 mg/dL (65-115); Osmolality Calculated 293 mOsm/kg (285-295); Potassium 4.1 mmol/L (3.5-5.1); Sodium 140 mmol/L (136-145); Total Bilirubin 0.5 mg/dL (0.15-1.2); Total Protein 6.6 g/dL (6.6-8.7)
--- NOTE | 2020-01-31 10:53 | ECG_ITS ---
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 Measurements Intervals [place] Rate: 67 P: 66 [place]: 163 QRS: 25 QRSD: 82 T: 46 QT: 396 QTc: 420 Interpretive Statements SINUS RHYTHM LOW QRS VOLTAGE IN PRECORDIAL LEADS [QRS DEFLECTION < 1.0 mV IN CHEST LEADS] Compared to ECG 01/31/2020 07:34:45 No significant changes Electronically Signed On 01-31-2020 20:17:43 PIN MAKER by Bg Mccormack M.D. [id number]
[2020-01-31 11:20] LABS: Troponin(5th) Baseline 13 ng/L (0-10)
[2020-01-31 11:36] LABS: Troponin 5 2HR 12.34 ng/L (0-10)
[2020-01-31 11:42] LABS: Troponin 5 2HR Delta -0.66 ABS# (0-10)
[2020-01-31 13:26] VITALS: BP 129/61; PULSE 72; RESP 18; O2SAT 98
== END 2020-01-31 13:27 | disposition home or self-care (01) ==
PROVIDERS: Emergency Provider Family Medicine; PCP Internal Medicine
DX: J44.1 Chronic obstructive pulmonary disease with (acute) exacerbation (principal); F31.9 Bipolar disorder, unspecified; F17.210 Nicotine dependence, cigarettes, uncomplicated
CPT/HCPCS: 12345; 71045; 80053; 84484; 85025; 85378; 93005; 96374; 96375; 99283; 99284; J2270; J2405

== ENCOUNTER 2022-05-13 10:25 | Outpatient (CLI) | payer MEDICARE, SELFPAY ==
--- NOTE | 2022-05-13 10:38 | MM_ITS ---
WS: [id number] BILATERAL SCREENING DIGITAL TOMOSYNTHESIS MAMMOGRAM WITH CAD HISTORY: SCREENING COMPARISON: 10/23/2017 and 10/17/2016 Bilateral CC and MLO views with tomosynthesis and synthetic mammography submitted. Computer aided det ection analyzed. Breast composition: There are scattered areas of fibroglandular density. No suspicious masses, microc alcifications or architectural distortion. Benign calcifications in each breast. MM/[place] [id number] IMPRESSION: BI-RADS: 2-Benign FOLLOW UP: 1 Year Follow-up
== END 2022-05-13 10:26 | disposition home or self-care (01) ==
PROVIDERS: PCP Physician Assistant; Visit Provider Physician Assistant
DX: Z12.31 Encounter for screening mammogram for malignant neoplasm of breast (principal)
CPT/HCPCS: 77063; 77067

== ENCOUNTER → 2022-06-23 09:03 | Outpatient (BNVA) | payer MEDICARE, SELFPAY | PROVIDERS: PCP Physician Assistant; Visit Provider Internal Medicine Pulmonary Disease | DX: J43.1 Panlobular emphysema (principal); Z87.891 Personal history of nicotine dependence | CPT/HCPCS: 99204 ==

== ENCOUNTER 2022-08-09 10:40 | Emergency (ER) | payer MEDICARE, MEDICAID, SELFPAY ==
[2022-08-09 10:44] VITALS: BP 163/73; PULSE 99; RESP 18; TEMP 36.3; O2SAT 98
--- NOTE | 2022-08-09 11:06 | W.ED.EXTPRO ---
HPI - Extremity Problem General: Chief complaint: Extremity Problem,Nontraumatic Stated complaint: states neuropathy Time Seen by Provider: 08/09/22 10:52 Source: patient Mode of arrival: ambulatory History of Present Illness: 62-year-old female presents emergency room complaining she is having neuropathy attack. She states she has peripheral neuropathy from diabetes however she lost weight and she is no longer being treated for diabetes but now has a neuropathy flare. No difficulty speech or swallowing. She states she has numbness and tingling in all of her extremities for MD Complaint: extremity pain Onset (ago): minute(s) Pain Consistency: constant Location: upper extremity and lower extremity Relieving factors: nothing Exacerbating factors: nothing Associated symptoms: Deny arthralgias, chest pain, fever(s), myalgias, rash or short of breath Review of Systems Const: Denies: fever(s), chills, fatigue or malaise ENMT: Denies: throat pain, ear or mastoid pain, nasal discharge or nasal congestion Card: Denies: chest pain Resp: Denies: dyspnea, productive cough or non-productive cough GI: Denies: abdominal pain, nausea, vomiting, hematemesis, coffee ground emesis, diarrhea, constipation, bloating, hematochezia or melena : Denies: flank pain, difficulty voiding, dysuria, urinary frequency or urinary urgency Skin/Breast: Denies: rash PFSH ED PFSH: Medical History Bipolar I disorder, most recent episode mixed, in remission Following information retrieved/edited from Behavior Assessment Report, completed on 06/16/22: Manasa has experienced some instability with her bipolar disorder but seems to be managing currently. Has hx of bipolar symptoms, including: persistent mood instability and irritability, depressive and manic episodes, making poor choices for herself, limited sleep, high energy, racing thoughts, other times, depressed mood, irritable, easily distracted, low energy, loss of interest in activities. Symptoms cause significant distress and impairment in functioning. Manasa requires medication for her bipolar diagnosis for stability and daily functioning. Memory change Psychiatric care Social History Smoking and tobacco status: current every day smoker Alcohol intake: never Substance/Drug Use: never Physical Exam Const: GENERAL APPEARANCE: cooperative and comfortable ORIENTATION/CONSCIOUSNESS: Yes awake, Yes oriented to person, Yes oriented to place and Yes oriented to time HENMT: COMMON NORMALS: normocephalic, atraumatic and hearing grossly normal bilaterally HEAD & SCALP: normocephalic and atraumatic Resp: COMMON NORMALS: normal respiratory effort, No retractions, No use of accessory muscles and clear to auscultation bilaterally AUSCULTATION: clear to auscultation bilaterally Cardio: COMMON NORMALS: regular rate, regular rhythm and No murmurs present (Cardio) RATE: regular rate RHYTHM: regular rhythm GI: COMMON NORMALS: Soft to palpation and No hepatosplenomegaly present AUSCULTATION: Yes normoactive bowel sounds PALPATION: Yes Soft to palpation, No Tenderness to palpation present (GI), No Guarding due to palpation present (GI) and Yes No hepatosplenomegaly present Extremity: COMMON NORMALS: normal to inspection, capillary refill normal, no clubbing, cyanosis or edema, no calf tenderness and no pedal edema Neuro: SENSORIUM/ORIENTATION: Yes oriented to person, Yes oriented to place and Yes oriented to time Skin: COMMON NORMALS: no rashes or lesions noted GENERAL SKIN EXAM: no rashes or lesions noted Course Vital Signs: Vital signs: Vital Signs Temperature 97.4 F L 08/09/22 10:44 Pulse Rate 99 08/09/22 10:44 Respiratory Rate 18 08/09/22 10:44 Blood Pressure 163/73 08/09/22 10:44 Pulse Oximetry 98 08/09/22 10:44 Oxygen Delivery Me thod Room Air 08/09/22 10:44 MDM - Extremity (Nontraumatic) Medical Decision Making MedicineSymptoms improved with Ativan. Patient extremities there is no focal signs suggestive of acute CVA or TIA. She did not have any seizure-like activity. Discharge patient home continue gabapentin hydroxyzine as needed follow-up with your primary care doctor things worsen or change return. She tells me she has an upcoming appointment with neurology recommend that she keep that appointment for further evaluation and treatment options. Medical Records I reviewed the patient's medical records. Lab Data I reviewed the patient's lab results. 08/09/22 11:00 08/09/22 11:00 Laboratory Results WBC 8.1 10^3/uL (4.0-10.0) 08/09/22 11:00 RBC 5.26 10^6/uL (4.1-5.3) 08/09/22 11:00 Hgb 15.9 g/dL (11.5-15.3) H 08/09/22 11:00 Hct 46.9 % (37.0-47.0) 08/09/22 11:00 MCV 89.2 fl (81-99) 08/09/22 11:00 MCH 30.2 pg (28.0-34.0) 08/09/22 11:00 MCHC 33.9 g/dL (30.0-36.0) 08/09/22 11:00 RDW 11.9 % (12.1-15.1) L 08/09/22 11:00 Plt Count 296 10^3/cmm (130-400) 08/09/22 11:00 MPV 9.9 fL (7.4-10.4) 08/09/22 11:00 Neut % (Auto) 59.4 % 08/09/22 11:00 Lymph % (Auto) 28.9 % 08/09/22 11:00 [place] % (Auto) 8.1 % 08/09/22 11:00 Eos % (Auto) 2.3 % 08/09/22 11:00 Baso % (Auto) 1.2 % 08/09/22 11:00 Neut # (Auto) 4.82 10^3/uL (1.8-7.7) 08/09/22 11:00 Lymph # (Auto) 2.4 10^3/uL (0.8-4.8) 08/09/22 11:00 [place] # (Auto) 0.7 10^3/uL (0.2-0.9) 08/09/22 11:00 Eos # (Auto) 0.2 10^3/uL (0.0-0.8) 08/09/22 11:00 Baso # (Auto) 0.1 10^3/uL (0.0-0.1) 08/09/22 11:00 Nucleated RBC % (auto) 0 % 08/09/22 11:00 Nucleated RBCs # 0.0 /100WBC 08/09/22 11:00 Specimen Type Arterial 08/09/22 11:22 Sample Site Brachial, right 08/09/22 11:22 ABG pH 7.44 (7.35-7.45) 08/09/22 11:22 ABG pCO2 37.2 mmHg (35-45) 08/09/22 11:22 ABG pO2 54.7 mmHg (80.0-100.0) L 08/09/22 11:22 ABG HCO3 25.0 mmol/L (22-26) 08/09/22 11:22 ABG O2 Saturation 89.9 08/09/22 11:22 ABG Base Excess 1.0 mmol/L (-2.0-2.0) 08/09/22 11:22 Emmett Test N/a 08/09/22 11:22 A-a O2 Gradient 6.4 mmHg (5-10) 08/09/22 11:22 Hematocrit 48.4 % (37-47) H 08/09/22 11:22 Hgb O2 Saturation 88.1 % (95-100) L 08/09/22 11:22 Carboxyhemoglobin 1.2 %THgb (0.4-20.1) 08/09/22 11:22 Methemoglobin 0.8 % (0.4-1.5) 08/09/22 11:22 Total Hemoglobin 15.8 g/dL (12-16) 08/09/22 11:22 Sodium 141.0 mmol/L (131-143) 08/09/22 11:22 Potassium 3.9 mmol/L (3.5-5.0) 08/09/22 11:22 Glucose 109.0 mg/dL (70-115) 08/09/22 11:22 Ionized Calcium 1.2 mmol/L (1.1-1.4) 08/09/22 11:22 O2 Delivery Device None 08/09/22 11:22 FiO2 21.0 % 08/09/22 11:22 Radiologist Physician ID Ed 08/09/22 11:22 Sodium 139 mmol/L (136-145) 08/09/22 11:00 Potassium 4.0 mmol/L (3.5-5.1) 08/09/22 11:00 Chloride 99 mmol/L (98-107) 08/09/22 11:00 Carbon Dioxide 25 mmol/L (22-29) 08/09/22 11:00 Anion Gap 19.0 (5-19) 08/09/22 11:00 BUN 14 mg/dL (8-23) 08/09/22 11:00 Creatinine 0.7 mg/dL (0.5-0.9) 08/09/22 11:00 GFR Calculation 84.2 mL/min (90-130) L 08/09/22 11:00 Glucose 112 mg/dL (65-115) 08/09/22 11:00 Calculated Osmolality 289 mOsm/kg (285-295) 08/09/22 11:00 Calcium 9.7 mg/dL (8.5-10.5) 08/09/22 11:00 Total Bilirubin 0.7 mg/dL (0.15-1.2) 08/09/22 11:00 AST 23 U/L (0-32) 08/09/22 11:00 ALT 15 U/L (0-33) 08/09/22 11:00 Alkaline Phosphatase 97 U/L (35-105) 08/09/22 11:00 C-Reactive Protein 3.0 mg/L (0.0-4.9) 08/09/22 11:00 Total Protein 7.4 g/dL (6.6-8.7) 08/09/22 11:00 Albumin 4.5 g/dL (3.5-5.2) 08/09/22 11:00 Globulin 2.9 g/dL (1.3-4.6) 08/09/22 11:00 Discharge Plan Discharge Patient Disposition: Home Clinical Impression: Diabetic peripheral neuropathy, Anxiety Condition: Stable Prescriptions: New hydroxyzine HCl 25 mg tablet 25 mg PO Q8H PRN (Reason: anxiety) Qty: 14 0RF No Action atorvastatin 10 mg tablet 10 mg PO DAILY Latuda 80 mg tablet 80 mg PO DAILY Rx Instructions: must administer with food (at least 350 calories) clonazepam 0.5 mg tablet 0.5 mg PO DAILY albuterol sulfate 2.5 mg /3 mL (0.083 %) solution for nebulization 2.5 mg inhalation Q6H PRN (Reason: shortness of breath or wheezing) Qty: 180 11RF ipratropium bromide 0.02 % solution 2.5 ml inhalation Q6H PRN (Reason: shortness of breath or wheezing) Qty: 150 11RF Breztri Aerosphere 160-9-4.8 mcg/actuation HFA aerosol inhaler 2 inh inhalation BID Qty: 10.7 3RF miscellaneous medical supply Kit See Rx Instructions .ROUTE .COMPLEX Qty: 1 0RF Rx Instructions: Nebulizer with all necessary tubing and accessories; venlafaxine 150 mg Capsule,Extended Release 24hr 150 mg PO QAM 30 Days Qty: 30 1RF Rx Instructions: rx written on 01/02/2020-pt states she takes this medication albuterol sulfate [Ventolin HFA] 90 mcg/actuation Hfa Aerosol Inhaler 2 puff inhalation Q4H.RESPIRATORY PRN (Reason: Shortness Of Breath) 30 Days Qty: 1 1RF donepezil 10 mg tablet 10 mg PO DAILY 30 Days Qty: 30 0RF Rx Instructions: rx written on 01/02/2020-pt states she takes this medication gabapentin 800 mg tablet 800 mg PO TID 30 Days Qty: 90 0RF Rx Instructions: rx written on 01/02/2020-pt states she takes this medication levothyroxine 125 mcg tablet 125 mcg PO DAILY 30 Days Qty: 30 0RF Rx Instructions: rx written on 01/02/2020-pt states she takes this medication metoprolol tartrate 50 mg tablet 50 mg PO DAILY 30 Days Qty: 30 1RF Rx Instructions: rx written on 01/02/2020-pt states she takes this medication montelukast 10 mg tablet 10 mg PO DAILY 30 Days Qty: 30 1RF fluticasone propionate 50 mcg/actuation spray,suspension See Rx Instructions .ROUTE .COMPLEX 30 Days Qty: 1 0RF Rx Instructions: USE DIRECTED pt states she uses 1 spray daily venlafaxine 75 mg Tablet Extended Release 24hr 75 mg PO DAILY 6 Days Qty: 6 0RF Rx Instructions: rx written in 01/02/2020 pt states she only got 5 capsules and is unsure if she is still taking ibuprofen 200 mg Tablet 600 mg PO PRN albuterol sulfate 90 mcg/actuation HFA aerosol inhaler 2 inh INHALATION Q4H PRN (Reason: shortness of breath or wheezing) Qty: 18 0RF Discharge Orders: Discharge ED (Routine); Ordered 08/09/22 Ordered By: Audie South Referrals: Nieves Anderson PA [Primary Care Provider] - Discharge Diet: Usual diet Discharge Activity: Increase activity as tolerated Patient Instructions: Opioid Safety, Pain Management Activity Restrictions/Additional Instructions: You are seen today for complaints about your peripheral neuropathy. Your symptoms improved with the Ativan given in the emergency room. It appears there is some component of anxiety related to this as well. Continue the gabapentin which is for peripheral neuropathy you can use the hydroxyzine prescribed today for anxiety symptoms and follow-up with your primary care doctor or neurologist within the next 1 to 2 weeks. Coding Level of Care Code ED Christmas Bell Ringer for Mckenzie Schwartz NIH stroke score NIHSS Level Of Consciousness - 1a: 0 Level Of Consciousness Questions - 1b: Both Correct Level Of Consciousness Commands - 1c: Both Correct Best Gaze - 2: Normal Visual Thompson - 3: No Visual Loss Facial Palsy - 4: Normal Motor Arm Right - 5: No Drift Motor Arm Left - 5: No Drift Motor Leg Right - 6: No Drift Motor Leg Left - 6: No Drift Limb Ataxia - 7: Absent Sensory - 8: Normal Best Language - 9: No Aphasia Dysarthia - 10: Normal Extinction And Inattention - 11: 0 Score Total Score: 0
[2022-08-09] MEDS: LORazepam 2 mg/mL INJ 1 mL IVP (11:13)
[2022-08-09 11:15] LABS: Basophils # 0.1 10^3/uL (0.0-0.1); Basophils % 1.2 %; Eosinophils # 0.2 10^3/uL (0.0-0.8); Eosinophils % 2.3 %; Hematocrit 46.9 % (37.0-47.0); Hemoglobin 15.9 g/dL (11.5-15.3); Lymphocytes # 2.4 10^3/uL (0.8-4.8); Lymphocytes % 28.9 %; Mean Corpuscular HGB Conc 33.9 g/dL (30.0-36.0); Mean Corpuscular Hemoglobin 30.2 pg (28.0-34.0); Mean Corpuscular Volume 89.2 fl (81-99); Mean Platelet Volume 9.9 fL (7.4-10.4); Monocytes # 0.7 10^3/uL (0.2-0.9); Monocytes % 8.1 %; Neutrophils # 4.82 10^3/uL (1.8-7.7); Neutrophils % 59.4 %; Nucleated Red Blood Cells % 0 %; Platelet Count 296 10^3/cmm (130-400); Red Blood Count 5.26 10^6/uL (4.1-5.3); Red Cell Distribution Width 11.9 % (12.1-15.1); White Blood Count 8.1 10^3/uL (4.0-10.0)
[2022-08-09 11:31] LABS: ABG PCO2 37.2 mmHg (35-45); ABG PH Result 7.44 (7.35-7.45); Alveolar-Arterial Oxygen Gradi 6.4 mmHg (5-10); Arterial Blood Gas Hematocrit 48.4 % (37-47); Blood Gas Sample Type Arterial; Carboxyhemoglobin 1.2 %THgb (0.4-20.1); HGB O2 Sat 88.1 % (95-100); Ionized Calcium Level - ABG 1.2 mmol/L (1.1-1.4); Methemoglobin 0.8 % (0.4-1.5); Oxygen Saturation ABG 89.9; PO2 ABG 54.7 mmHg (80.0-100.0); Potassium Level - ABG 3.9 mmol/L (3.5-5.0); Total Hemoglobin 15.8 g/dL (12-16)
[2022-08-09 11:34] LABS: Blood Gas Operator Identificat ED; Blood Gas Sample Site Brachial, right
[2022-08-09 11:38] LABS: Alanine Aminotransferase 15 U/L (0-33); Albumin Level 4.5 g/dL (3.5-5.2); Alkaline Phosphatase 97 U/L (35-105); Aspartate Amino Transferase 23 U/L (0-32); Blood Urea Nitrogen 14 mg/dL (8-23); Calcium 9.7 mg/dL (8.5-10.5); Carbon Dioxide 25 mmol/L (22-29); Chloride 99 mmol/L (98-107); Globulin 2.9 g/dL (1.3-4.6); Glomerular Filtration Rate 84.2 mL/min (90-130); Glucose 112 mg/dL (65-115); Osmolality Calculated 289 mOsm/kg (285-295); Sodium 139 mmol/L (136-145); Total Bilirubin 0.7 mg/dL (0.15-1.2); Total Protein 7.4 g/dL (6.6-8.7)
== END 2022-08-09 12:02 | disposition home or self-care (01) ==
PROVIDERS: Emergency Provider Family Medicine; PCP Physician Assistant
DX: E11.42 Type 2 diabetes mellitus with diabetic polyneuropathy (principal); F41.9 Anxiety disorder, unspecified; F17.210 Nicotine dependence, cigarettes, uncomplicated
CPT/HCPCS: 36600; 80051; 80053; 82330; 82805; 85025; 86140; 96374; 99284; J2060

== ENCOUNTER → 2022-09-12 09:17 | Outpatient (BNVA) | payer MEDICARE, SELFPAY | PROVIDERS: PCP Physician Assistant; Visit Provider Internal Medicine Pulmonary Disease | DX: J43.1 Panlobular emphysema (principal); Z87.891 Personal history of nicotine dependence | CPT/HCPCS: 99214 ==

== ENCOUNTER 2022-10-14 08:39 | Outpatient (CLI) | payer MEDICARE, MEDICAID, SELFPAY ==
--- NOTE | 2022-10-14 09:06 | XR_ITS ---
WS: [id number] Exam: XR lumbar spine min 4V [id number] Date/Time of Exam: 10/14/2022 9:16 AM Reason For Exam: DDD LUMBAR Comparison 05/14/2014. No acute fracture or dislocation noted. Degenerative vacuum disc at L5-S1. There appears to be lumbar ization of the S1. There is posterior spurring along the lower endplate of L5 that might cause some s eliot canal stenosis. Facet arthropathy at L3-4, L4-5 and L5-S1. Mild levoscoliosis that may be posit ional. XR/XR lumbar spine min 4V [id number] IMPRESSION: 1. No fracture or malalignment. 2. Degenerative disc change at L5-S1. Additional findings as detailed above.
--- NOTE | 2022-10-14 09:06 | XRR_ITS ---
PROCEDURE INFORMATION: Exam: XR Cervical Spine Exam date and time: 10/14/2022 9:16 AM Age: 62 years old Clinical indication: Neck pain; Patient HX: HX of right lung cancer; Additional info: Ddd cervical TECHNIQUE: Imaging protocol: Radiologic exam of the cervical spine. Views: 4 or 5 views. COMPARISON: MR cervical spin wo con* [id number] 09/27/2018 3:34 PM FINDINGS: Bones/joints: The cervical spine maintains a normal lordotic curvature. No spondylolisthesis identified.C1 and C2 maintain normal alignment. The base of the odontoid is unremarkable. The vertebral bodies maintain normal height. Multilevel loss of intervertebral disc height with endplate degenerative changes. Concern for left-sided neural foraminal narrowing at C3-C4 and C4-C5. Soft tissues: Unremarkable. XR/XR cervical spine 4-5V [id number] IMPRESSION: 1. Multilevel degenerative disc disease. 2. Concern for left-sided neural foraminal narrowing at C3-C4 and C4-C5.
== END 2022-10-14 08:40 | disposition home or self-care (01) ==
PROVIDERS: PCP Physician Assistant; Visit Provider General Practice
DX: G62.9 Polyneuropathy, unspecified (principal); M54.2 Cervicalgia; E03.9 Hypothyroidism, unspecified; I10 Essential (primary) hypertension; Z86.39 Personal history of other endocrine, nutritional and metabolic disease; R68.89 Other general symptoms and signs; Z79.899 Other long term (current) drug therapy
CPT/HCPCS: 36415; 72050; 72110; 82306; 83090; 83735; 83921; 86592; 86780; 99203

== ENCOUNTER 2022-11-03 12:28 | Outpatient (CLI) | payer MEDICARE, MEDICAID, SELFPAY ==
--- NOTE | 2022-11-03 13:00 | MR_ITS ---
WS: [id number] MRI CERVICAL SPINE NONCONTRAST HISTORY: G62.9 - Polyneuropathy, unspecified COMPARISON: 09/27/2018 Technique: Multiplanar, multisequence noncontrast imaging of the cervical spine. Quality of this examination is significantly compromised by motion artifact on all sequences. Straightening and slight reversal normal cervical lordosis. Disc spaces are narrowed throughout. C4 a nterolisthesis by 2 mm. Increased T2 signal extends over a length of 8 mm at the C3-4 level. This was also noted on the prior study and the cord does appear slightly atrophied today. The remaining cord signal is limited by mot ion. Craniocervical junction, C1 and C2 relationship, odontoid process and soft tissues are normal. C2-C3: Normal. C3-C4: Diffuse disc bulging. Component of bilateral foraminal stenosis is suspected. Limited by motio n. C4-C5: Mild annular disc bulging with bilateral foraminal stenosis. C5-C6: Diffuse annular disc bulging and bilateral facet arthritis and foraminal narrowing. C6-C7: Diffuse annular disc bulging with mild to moderate bilateral foraminal stenosis. C7-T1: No significant stenosis. Mild disc bulging. Paravertebral soft tissues and evaluation is limited by extensive motion artifact. MR/MR cervical spin wo con* [id number] IMPRESSION: 1. Quality of this examination is significantly compromised by motion. 2. 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 3. Multilevel foraminal narrowing and facet joint arthritis as above. It is di fficult to quantify the extent of stenoses with this amount of motion. Most sig nificant stenosis appears to be at the C6-7 level. No high-grade central stenos is.
== END 2022-11-03 12:29 | disposition home or self-care (01) ==
LOC: RAD 12:32
PROVIDERS: PCP Physician Assistant; Visit Provider Psychiatry & Neurology Neurology
DX: G62.9 Polyneuropathy, unspecified (principal); G89.29 Other chronic pain; M54.2 Cervicalgia; M54.9 Dorsalgia, unspecified; G95.89 Other specified diseases of spinal cord; M47.812 Spondylosis without myelopathy or radiculopathy, cervical region
CPT/HCPCS: 72141

== ENCOUNTER → 2022-11-19 10:35 | Outpatient (BNVA) | payer MEDICARE, MEDICAID, SELFPAY | PROVIDERS: PCP Physician Assistant; Visit Provider Internal Medicine Pulmonary Disease | DX: Z85.118 Personal history of other malignant neoplasm of bronchus and lung (principal); G47.33 Obstructive sleep apnea (adult) (pediatric); J43.1 Panlobular emphysema | CPT/HCPCS: 99214 ==

== ENCOUNTER → 2022-12-25 09:53 | Outpatient (BNVA) | payer MEDICARE, MEDICAID, SELFPAY | PROVIDERS: PCP Physician Assistant; Visit Provider Nurse Practitioner Psychiatric/Mental Health | DX: Z79.899 Other long term (current) drug therapy (principal) | CPT/HCPCS: 80061; 83036 ==

== ENCOUNTER 2023-01-05 13:50 | Outpatient (CLI) | payer MEDICARE, MEDICAID, SELFPAY ==
--- NOTE | 2023-01-05 14:42 | CT_ITS ---
WS: [id number] CT chest wo con [id number] HISTORY: Lung cancer TECHNIQUE: Axial imaging performed through the thorax. Coronal and sagittal reformats are submitted. All CT scans at [facility] use at least one of these dose optimization techniques: automated exposure control; mA and/or kV adjustment per patient size (includes targeted exams where dose is mat ched to clinical indication); or iterative reconstruction. CONTRAST: None DLP: 342.53 mGy.cm COMPARISON: 05/11/2018 Lungs and central airway: Prior RIGHT upper lobectomy. Mild peripheral interstitial thickening. No ma ss or pulmonary nodule. No pneumonia. No significant atelectasis. Pleura: Normal. No pleural effusion. Heart and pericardium: Normal size heart with no pericardial effusion. Mediastinum and joaquim: No new or enlarging lymph nodes in the mediastinum or joaquim identified on this u nenhanced exam. Limited evaluation of the hilar regions without IV contrast. Vessels: Mild atherosclerosis aorta. No aneurysm. Normal size pulmonary artery. Chest wall and lower neck: No soft tissue masses. Upper abdomen: Small hiatal hernia. Prior cholecystectomy. Normal adrenal glands. Osseous structures: No destructive process. IMPRESSION: 1. Prior RIGHT upper lobectomy. 2. Mild emphysema. No recurrent mass identified. 3. No mediastinal or hilar adenopathy identified. Sensitivity of this examination is decreased withou t IV contrast. 4. Prior cholecystectomy.
== END 2023-01-05 13:51 | disposition home or self-care (01) ==
LOC: RAD 13:52
PROVIDERS: PCP Physician Assistant; Visit Provider Internal Medicine Pulmonary Disease
DX: Z85.118 Personal history of other malignant neoplasm of bronchus and lung (principal); G47.33 Obstructive sleep apnea (adult) (pediatric); J43.1 Panlobular emphysema; Z90.2 Acquired absence of lung [part of]; J43.9 Emphysema, unspecified
CPT/HCPCS: 71250; 99212

== ENCOUNTER → 2023-03-17 07:57 | Outpatient (BNVA) | payer MEDICARE, MEDICAID, SELFPAY | PROVIDERS: PCP Physician Assistant; Visit Provider Physician Assistant | DX: M47.12 Other spondylosis with myelopathy, cervical region (principal); M43.12 Spondylolisthesis, cervical region; M50.30 Other cervical disc degeneration, unspecified cervical region; G95.89 Other specified diseases of spinal cord | CPT/HCPCS: 72050; 99204 ==

== ENCOUNTER → 2023-04-15 09:30 | Outpatient (BNVA) | payer MEDICARE, MEDICAID, SELFPAY | PROVIDERS: PCP Physician Assistant; Visit Provider Family Medicine | DX: Z01.818 Encounter for other preprocedural examination (principal); Z79.899 Other long term (current) drug therapy | CPT/HCPCS: 80053; 81003; 85025; 87086 ==

== ENCOUNTER 2023-04-20 14:02 | Inpatient (IN) | payer MEDICARE, MEDICAID, SELFPAY ==
[2023-04-20] VITALS (27 sets, daily range): BP systolic 101–187; BP diastolic 53–91; PULSE 59–68; RESP 12–18; TEMP 36.1–37; O2SAT 95–100; BMI 26.6
--- NOTE | 2023-04-20 | XR_ITS ---
WS: [id number] INTRAOPERATIVE TECHNIQUE: 3 Spot fluoroscopic images for intraoperative purposes. FLUOROSCOPY TIME:? Seconds CLINICAL INFORMATION: acdf, or pic COMPARISON: None. FINDINGS: Endotracheal tube. ACDF C3-C7. Visualized hardware appears in good position. IMPRESSION: Images obtained for intraoperative purposes.
--- NOTE | 2023-04-20 06:30 | W.PM.OPSUD ---
Surgery/Procedure H&P Update DATE OF PROCEDURE: April 20, 2023 DATE H&P PERFORMED: 04/15/23 H&P UPDATE INFORMATION: I have reviewed H&P completed within last 30 days, I have examined patient prior to procedure and No changes to prior documentation PLANNED PROCEDURE: Operation Date: 04/20/23 07:00 Proposed Procedures p ACDF(C3/4,C4/5,C5/6,C6/7)(Not Applicable) - Josue Sparrow,
--- NOTE | 2023-04-20 06:42 | ANES.PREANE2 ---
Pre-Anesthetic Assessment Height/Weight: Height 1.57 m Weight 66.224 kg O2 Del Method Room Air 04/20/23 06:24 Operation Date: 04/20/23 07:00 Proposed Procedures p ACDF(C3/4,C4/5,C5/6,C6/7)(Not Applicable) - Josue Sparrow DO Familial anesthetic complications: None Was Beta Yani taken within 24 hours: Yes Was Clonidine taken within 24 hours: N/A Last intake: Intake Last Liquid Date 04/19/23 Last Liquid Time 20:00 Last Solid Date 04/19/23 Last Solid Time 15:00 Social No alcohol and No tobacco Airway Mallampati: Class II Dentition: full Pulmonary Chronic Obstructive Pulmonary Disease and Sleep Apnea hx r upper lobectomy for lung cancer Metabolic Hyperlipidemia and Thyroid Disease Anesthetic Plan ASA status: 3 Anesthesia: General Risk of > 500 ml blood loss (7ml/kg in children): No Medications/Allergies Home Medications Medication Instructions Recorded Confirmed Last Taken Type albuterol sulfate 90 mcg/actuation 2 puff inhalation Q4H.RESPIRATORY 01/02/20 04/17/23 04/17/23 Rx aerosol inhaler (Ventolin HFA) PRN Shortness Of Breath 30 days #1 ea fluticasone propionate 50 See Rx Instructions .Route 01/02/20 04/17/23 04/17/23 Rx mcg/actuation nasal .COMPLEX 30 days #1 device spray,suspension gabapentin 800 mg tablet 800 mg PO TID 30 days #90 tabs 01/02/20 04/17/23 04/17/23 Rx levothyroxine 125 mcg tablet 125 mcg PO DAILY 30 days #30 tabs 01/02/20 04/17/23 04/20/23 Rx metoprolol tartrate 50 mg tablet 50 mg PO DAILY 30 days #30 tabs 01/02/20 04/17/23 04/20/23 Rx albuterol sulfate 90 mcg/actuation 2 inh inhalation Q4H PRN shortness 01/31/20 04/17/23 04/17/23 Rx aerosol inhaler of breath or wheezing #18 grams ibuprofen 200 mg tablet 600 mg PO PRN 01/31/20 04/17/23 04/17/23 History albuterol sulfate 2.5 mg/3 mL 2.5 mg (3 mL) inhalation Q6H PRN 06/23/22 04/17/23 Unknown Rx (0.083 %) solution for nebulization shortness of breath or wheezing #180 mL budesonide 160 mcg-glycopyr 9 2 inh inhalation BID #10.7 grams 06/23/22 04/17/23 04/17/23 Rx mcg-formot 4.8 mcg/actuation HFA inhaler (Breztri Aerosphere) ipratropium bromide 0.02 % 2.5 ml inhalation Q6H PRN 06/23/22 04/17/23 Unknown Rx solution for inhalation shortness of breath or wheezing #150 mL atorvastatin 10 mg tablet 10 mg PO DAILY 06/26/22 04/17/23 04/17/23 History montelukast 10 mg tablet 10 mg PO DAILY 30 days #90 tabs 09/12/22 04/17/23 04/17/23 Rx oxycodone 5 mg tablet 2.5 mg PO Q6H PRN pain 09/12/22 04/17/23 04/17/23 History cholecalciferol (vitamin D3) 625 50,000 unit PO .weekly #14 caps 11/05/22 04/17/23 04/17/23 Rx mcg (25,000 unit) capsule clonazepam 0.5 mg tablet See Rx Instructions PO DAILY PRN 12/30/22 04/17/23 04/17/23 Rx anxiety #20 tabs Bone growth stimulator #1 ea 03/18/23 04/06/23 Unknown Rx donepezil 10 mg tablet 10 mg PO DAILY 30 days #30 tabs 04/06/23 04/17/23 04/17/23 Rx lurasidone 80 mg tablet (Latuda) 80 mg PO DAILY #30 tabs 04/06/23 04/17/23 04/17/23 Rx venlafaxine 150 mg See Rx Instructions PO QAM #60 caps 04/06/23 04/17/23 04/17/23 Rx capsule,extended release 24 hr trazodone 50 mg tablet 50 mg PO .qhs 04/15/23 04/17/23 04/17/23 History Allergies Allergy/AdvReac Type Severity Reaction Status Date / Time Sulfa (Sulfonamide Allergy ADR-Seizure Verified 04/17/23 12:27 Antibiotics) [facility] Anesthesia Medical History Tardive dyskinesia Memory change Bipolar I disorder, most recent episode mixed, in remission Psychiatric care Social History Smoking and tobacco/nicotine status: former use of tobacco/nicotine Quit status (tobacco/nicotine): has quit using Year quit tobacco: 1993 Former quit date comment: 1 ppd X 27 years Alcohol intake: never Substance/Drug Use: never Data Anesthesia Cardiac Studies: No Data to Display
[2023-04-20] MEDS: sodium chloride 0.9% 1,000 ML 30 ML IV (06:57)
[2023-04-20] MEDS: ceFAZolin 2,000 MG in sodium chloride 0.9% (plus) 50 ML 100 MG IV ×2 (07:08→17:38)
[2023-04-20] MEDS: lidocaine-epi 1% 20 mL INJ INJECTION ×2 (08:06→08:32)
[2023-04-20] MEDS: thrombin 5,000 unit SDV 5000 UNIT XX (08:31)
--- NOTE | 2023-04-20 10:39 | P.OP_ITS ---
Operative Report Date of procedure: April 20, 2023 Pre-op diagnosis: Cervical spondylosis with myelopathy Post-op diagnosis: same Procedure done: 1. Anterior diskectomy C3/4 2. Anterior diskectomy C4/5 3. Anterior diskectomy C5/6 4. Anterior discectomy C6/7 5. Insertion of cage C3/4 6. Insertion of cage C4/5 7. Insertion of cage C5/6 8. Insertion of Cage C6/7 9. Instrumentation with anterior plate from C3-C7 10. Use of allograft Surgeon: Josue Sparrow DO Estimated blood loss (mL): 50 Procedure: 1. Anterior diskectomy C3/4 2. Anterior diskectomy C4/5 3. Anterior diskectomy C5/6 4. Anterior discectomy C6/7 5. Insertion of cage C3/4 6. Insertion of cage C4/5 7. Insertion of cage C5/6 8. Insertion of Cage C6/7 9. Instrumentation with anterior plate from C3-C7 10. Use of allograft The patient was taken to the operating room, where he underwent general endotra cheal anesthesia without complications. He was then positioned supine on the operating table, and all areas of impingement were well padded. The arms were carefully padded and tucked at his sides. A roll was placed between the shoulder blades.. An x-ray was done to determine the appropriate level for the skin incision. The entire neck was then sterilely prepped and draped in the usual fashion. Neuromonitoring was attached prior to prepping. A transverse skin incision was made and carried down to the platysma muscle. This was then split in line with its fibers. Blunt dissection was carried down medial to the carotid sheath and lateral to the trachea and esophagus until the anterior cervical spine was visualized. A needle was placed into a disc and an x-ray was done to determine its location. The longus colli muscles were then elevated bilaterally with the electrocautery unit. Self-retaining retractors were placed deep to the longus colli muscle. Attention was brought to the C3/4 level that was confirmed on x-ray. A caspar pin was placed into the C3 vertebrae and the C4 vertebrae. The disk space was then distracted. The microscope was then brought in. A radical anterior discectomies were performed at C3/4. This included complete removal of the anterior annulus, nucleus, and posterior annulus. The posterior longitudinal ligament was removed as were the posterior osteophytes. Foraminotomies were then accomplished bilaterally. This was done using a high speed kathie, kerrison rongeurs and curretes Once all of this was accomplished, the curved currette was used to check for any residual compression. The central canal was wide open as were the foramen. A high-speed bur was used to remove the cartilaginous endplates above and below the interspace. Bleeding cancellous bone was exposed. The disc space were measured and appropriate size cage were placed sterilely onto the field. Allograft graft was packed into the cages. The cage was then placed and there was good juxtaposition against the bleeding decorticated surfaces and good distraction of each interspace. Attention was brought to the next interspace. Attention was brought to the C4/5 level that was confirmed on x-ray. A caspar pin was placed into the C4 vertebrae and the C5 vertebrae. The disk space was then distracted. The microscope was then brought in. A radical anterior discectomies were performed at C4/5. This included complete removal of the anterior annulus, nucleus, and posterior annulus. The posterior longitudinal ligament was removed as were the posterior osteophytes. Foraminotomies were then accomplished bilaterally. This was done using a high speed kathie, kerrison rongeurs and curretes Once all of this was accomplished, the curved currette was used to check for any residual compression. The central canal was wide open as were the foramen. A high-speed bur was used to remove the cartilaginous endplates above and below the interspace. Bleeding cancellous bone was exposed. The disc space were measured and appropriate size cage were placed sterilely onto the field. Allograft graft was packed into the cages. The cage was then placed and there was good juxtaposition against the bleeding decorticated surfaces and good distraction of each interspace. Attention was brought to the next interspace. Attention was brought to the C5/6 level that was confirmed on x-ray. A caspar pin was placed into the C5 vertebrae and the C6 vertebrae. The disk space was then distracted. The microscope was then brought in. A radical anterior discectomies were performed at C5/6. This included complete removal of the anterior annulus, nucleus, and posterior annulus. The posterior longitudinal ligament was removed as were the posterior osteophytes. Foraminotomies were then accomplished bilaterally. This was done using a high speed kathie, kerrison rongeurs and curretes Once all of this was accomplished, the curved currette was used to check for any residual compression. The central canal was wide open as were the foramen. A high-speed bur was used to remove the cartilaginous endplates above and below the interspace. Bleeding cancellous bone was exposed. The disc space were measured and appropriate size cage were placed sterilely onto the field. Allograft graft was packed into the cages. The cage was then placed and there was good juxtaposition against the bleeding decorticated surfaces and good distraction of each interspace. Attention was brought to the next interspace. Attention was brought to the C6/7 level that was confirmed on x-ray. A caspar pin was placed into the C6 vertebrae and the C7 vertebrae. The disk space was then distracted. The microscope was then brought in. A radical anterior discectomies were performed at C6/7. This included complete removal of the anterior annulus, nucleus, and posterior annulus. The posterior longitudinal ligament was removed as were the posterior osteophytes. Foraminotomies were then accomplished bilaterally. This was done using a high speed kathie, kerrison rongeurs and curretes Once all of this was accomplished, the curved currette was used to check for any residual compression. The central canal was wide open as were the foramen. A high-speed bur was used to remove the cartilaginous endplates above and below the interspace. Bleeding cancellous bone was exposed. The disc space were measured and appropriate size cage were placed sterilely onto the field. Allograft graft was packed into the cages. The cage was then placed and there was good juxtaposition against the bleeding decorticated surfaces and good distraction of each interspace. Attention was brought to the next interspace. The [place] pins were removed. Bone wax was used to prevent any bleeding from occurring at the pin sites. The appropriate size anterior cervical locking plate was chosen and bent into gentle lordosis. Two screws were then placed into each of the vertebral bodies at C3, C4, C5, C6 and C7. There was excellent purchase. A final x-ray was done confirming good position of the hardware and Cages. The locking screws were then applied, also with excellent purchase. Following a final copious irrigation, there was good hemostasis and no dural leaks. The carotid pulse was strong. The wounds were then closed in layers using 2-0 Vicryl suture for the platysma muscle, 2-0 Vicryl suture for the subcutaneous tissue, and 4-0 monocryl suture in a subcuticular skin closure. Glue was placed followed by application of a sterile dressing. The drain was hooked to bulb suction. A soft collar was applied. The patient was then carefully returned to the supine position on his hospital bed where he was reversed and extubated and taken to the recovery room having tolerated the procedure well.
[2023-04-20] MEDS: fentaNYL 50 mcg/mL INJ 2mL IVP ×3 (11:02→12:51)
[2023-04-20] MEDS: ketorolac 30 mg/mL INJ IVP ×2 (12:17→16:16)
[2023-04-20] MEDS: diazePAM 5 mg Tablet PO (12:27)
[2023-04-20] MEDS: lactated ringers 1,000 ML 90 ML IV (16:03)
[2023-04-20] MEDS: gabapentin 400 mg Capsule 800 MG PO ×2 (16:05→20:58)
[2023-04-20] MEDS: CLONazepam 0.5 mg Tablet PO (16:16)
[2023-04-20] MEDS: morphine 4 mg/mL SDV 1 mL 2 MG IVP (16:17)
[2023-04-20] MEDS: HYDROcodone-acetaminophen 10-325 mg Tablet PO (17:38)
[2023-04-20] MEDS: docusate sodium 100 mg Capsule PO (17:39)
--- NOTE | 2023-04-20 18:26 | ANE.PACU2 ---
Inpatient post-anesthesia follow up: Airway intact: Yes Vital signs: Temperature 97.8 F Pulse Rate 62 Respiratory Rate 18 Blood Pressure 164/90 Pulse Oximetry 98 Oxygen Delivery Me thod Nasal Cannula Oxygen Flow Rate 3 Fraction of Inspir ed Oxygen Hydration adequate: Yes Nausea and vomiting: No Pain level: 1 Mental status: Baseline
[2023-04-21] MEDS: HYDROcodone-acetaminophen 10-325 mg Tablet PO ×2 (03:38→08:50)
[2023-04-21] MEDS: ceFAZolin 2,000 MG in sodium chloride 0.9% (plus) 50 ML 100 MG IV (03:39)
[2023-04-21 04:30] VITALS: BP 160/70; PULSE 62; RESP 16; TEMP 37; O2SAT 98
[2023-04-21] MEDS: venlafaxine ER (24HR) 150 mg Capsule 300 MG PO (05:16)
[2023-04-21] MEDS: lactated ringers 1,000 ML 90 ML IV (05:16)
[2023-04-21 07:10] VITALS: BP 147/73; PULSE 56; RESP 14; TEMP 36.7; O2SAT 97
[2023-04-21] MEDS: budesonide 0.5 mg/2 mL Neb INHALATION (07:27)
[2023-04-21 07:29] VITALS: PULSE 62; RESP 16; O2SAT 97
[2023-04-21 07:31] VITALS: PULSE 61
--- NOTE | 2023-04-21 07:57 | P.DS_ITS ---
Discharge Providers Date of Admission: 04/20/23 14:02 Date of Discharge: April 21, 2023 Attending Provider at Admission: Josue Sparrow DO Attending Provider at Discharge: Josue Sparrow DO Primary Care Provider: Nieves Anderson Reason for Visit Reason for Visit: M47.12, M43.12 Physical Exam Narrative: Doing well numbness in fingers feeling better Urinary Catheter Management: Gillespie: Cath Placed During This Visit: yes, but has since been removed by the nurse Reason for Continuing Indwelling Catheter: Perioperative Use in Selected Surgeries Urinary Catheter Date of Insertion: 04/20/23 Urinary Catheter Time of Insertion: 07:36 Date Urinary Catheter Removed: 04/21/23 Time Urinary Catheter Discontinued: 06:34 Discharge Data Studies Completed and Pending Completed Studies During Hospitalization Category Date Time Status XR cervical spine 3V* [id number] Routine Exams 04/20/23 Completed Pending at discharge Category Date Time Status C-arm Fluoroscopy 20696 Routine Exams 04/20/23 06:43 Taken Vitals Last Vital Signs Temp 98.0 F 04/21/23 07:10 Pulse 61 04/21/23 07:31 Resp 16 04/21/23 07:29 BP 147/73 04/21/23 07:10 Pulse Ox 97 04/21/23 07:29 O2 Del Method Nasal Cannula 04/21/23 07:29 O2 Flow Rate 2 04/21/23 07:29 Discharge Plan Discharge Patient Disposition: Home Condition: Stable Prescriptions: New oxycodone 10 mg tablet 10 mg PO Q4H PRN (Reason: pain) 7 Days Qty: 40 0RF Continued atorvastatin 10 mg tablet 10 mg PO DAILY Latuda 80 mg tablet 80 mg PO DAILY Qty: 30 2RF Rx Instructions: Take one tablet by mouth once a day; administer with food (at least 350 calories) venlafaxine 150 mg capsule,extended release 24hr See Rx Instructions PO QAM Qty: 60 2RF Rx Instructions: Take two capsules by mouth every morning (total of 300 mg daily) donepezil 10 mg tablet 10 mg PO DAILY 30 Days Qty: 30 2RF Rx Instructions: Take one tablet daily in the morning (DME) Bone growth stimulator See Rx Instructions .Route .MEDSUPPLY Qty: 1 0RF Rx Instructions: As directed albuterol sulfate 2.5 mg /3 mL (0.083 %) solution for nebulization 2.5 mg inhalation Q6H PRN (Reason: shortness of breath or wheezing) Qty: 180 11RF ipratropium bromide 0.02 % solution 2.5 ml inhalation Q6H PRN (Reason: shortness of breath or wheezing) Qty: 150 11RF Breztri Aerosphere 160-9-4.8 mcg/actuation HFA aerosol inhaler 2 inh inhalation BID Qty: 10.7 3RF oxycodone 5 mg tablet 2.5 mg PO Q6H PRN (Reason: pain) montelukast 10 mg tablet 10 mg PO DAILY 30 Days Qty: 90 3RF clonazepam 0.5 mg tablet See Rx Instructions PO DAILY PRN (Reason: anxiety) Qty: 20 1RF Rx Instructions: Take one-half to one tablet once daily, if needed for anxiety trazodone 50 mg tablet 50 mg PO .qhs cholecalciferol (vitamin D3) 625 mcg (25,000 unit) capsule 50,000 unit PO .weekly Qty: 14 2RF albuterol sulfate [Ventolin HFA] 90 mcg/actuation Hfa Aerosol Inhaler 2 puff inhalation Q4H.RESPIRATORY PRN (Reason: Shortness Of Breath) 30 Days Qty: 1 1RF gabapentin 800 mg tablet 800 mg PO TID 30 Days Qty: 90 0RF Rx Instructions: rx written on 01/02/2020-pt states she takes this medication levothyroxine 125 mcg tablet 125 mcg PO DAILY 30 Days Qty: 30 0RF Rx Instructions: rx written on 01/02/2020-pt states she takes this medication metoprolol tartrate 50 mg tablet 50 mg PO DAILY 30 Days Qty: 30 1RF Rx Instructions: rx written on 01/02/2020-pt states she takes this medication fluticasone propionate 50 mcg/actuation spray,suspension See Rx Instructions .ROUTE .COMPLEX 30 Days Qty: 1 0RF Rx Instructions: USE DIRECTED pt states she uses 1 spray daily ibuprofen 200 mg Tablet 600 mg PO PRN albuterol sulfate 90 mcg/actuation HFA aerosol inhaler 2 inh INHALATION Q4H PRN (Reason: shortness of breath or wheezing) Qty: 18 0RF Discharge Orders: Discharge Order (Routine); Ordered 04/21/23 Ordered By: Josue Sparrow Discharge Diet: Advance as tolerated Discharge Activity: Limit activity as instructed Patient Instructions: Opioid Safety Activity Restrictions/Additional Instructions: Thank you for choosing [facility] for your care! The following is a list of instructions, from your provider, to follow upon your discharge to ensure you have the optimal recovery from your recent injury or surgery. Anterior Cervical Discectomy and Fusion: What to Expect at Home Your Recovery Follow-up care is a whitehead part of your treatment and safety. Be sure to make and go to all appointments, and call your doctor if you are having problems. If you do not already have a follow-up appointment made, call office in the next 1-3 days to make follow up appointment for 2 weeks at [phone]. It is also a good idea to know your test results and keep a list of the medicines you take. You can expect your neck to feel stiff or sore after surgery. This should improve in the weeks after surgery. But it may take 4 to 6 months for you to get better completely. You may have trouble sitting or standing in one position for very long and may need pain medicine in the weeks after your surgery. It may take 4 to 6 weeks to get back to your usual activities, but it may depend on what kind of surgery you had. Your throat will feel sore and it may be difficult to swallow for the first 3 days after your surgery. As long as you can get liquids down without difficulty, this should slowly improve, otherwise call our office or seek medical attention if it becomes increasingly difficult to get anything down including liquids. Avoid hot liquids for first 3-5 days. Soothing foods/liquids such as jello, pudding, and luke warm soups are recommended until swallowing improves. Staying elevated will also help, it's advised you keep propped up at while sleeping to help reduce the swelling. You may use an ice pack directly on your incision or around it on the front of your neck, using a cloth to protect your skin; and a heating pad to the back of your neck as needed. Do not use over the counter anti-inflammatory medications (Ibuprofen, Motrin, Aleve, Advil, etc) Taking these meds after having a fusion can delay fusion rates, we recommend you avoid them for the first 3 [address] after your surgery[address] Dr. Sparrow may advise you to work with a physical therapist to strengthen the muscles around your neck and back - this will be discussed at your follow - up appointments. The pain or numbness you were having in your arms before surgery should get better or go away completely. This care sheet gives you a general idea about how long it will take for you to recover. But each person recovers at a different pace. Follow the steps below to get better as quickly as possible. How can you care for yourself at home? Activity ? Rest when you feel tired. Getting enough sleep will help you recover. ? Try to walk each day. Start by walking a little more than you did the day before. Bit by bit, increase the amount you walk. Walking boosts blood flow and helps prevent pneumonia and constipation. Walking may also decrease your muscle soreness after surgery. ? No lifting anything that is more that 5 pounds. This may include heavy grocery bags and milk containers, a heavy briefcase or backpack, cat litter or dog food bags, a child, or a vacuum beauty parlor cleaner. ? Avoid strenuous activities, such as bicycle riding, jogging, weightlifting, or aerobic exercise, until your doctor says it is okay. ? Do not drive until your follow-up visit after your surgery, or until your doctor says it isokay. ? Avoid taking long car trips for 2 to 4 weeks after surgery. Your neck may become tired and painful from sitting too long in one position. ? You will probably need to take 4 to 6 weeks off from work. It depends on the type of work you do and how you feel. ? You may have sex as soon as you feel able, but avoid positions that put stress on your neck or cause pain. Diet ? You can eat your normal diet. If your stomach is upset, try bland, low-fat foods like plain rice, broiled chicken, toast, and yogurt ? Drink plenty of fluids. If you have kidney, heart, or liver disease and have to limit fluids, talk with your doctor before you increase the amount of fluids you drink. ? You may notice that your bowel movements are not regular right after your surgery. This is common. Try to avoid constipation and straining with bowel movements. You may want to take a fiber supplement every day. If you have not had a bowel movement after a couple of days, ask your doctor about taking a mild laxative. Medicines ? Take pain medicines exactly as directed. 1. If Dr. Sparrow gave you a prescription medicine for pain, take lt as prescribed. 2. Do not take two or more pain medicines at the same time unless the doctor told you to. Many pain medicines have acetaminophen, which is Tylenol. Too much acetaminophen {Tylenol) can be harmful. 3. If you think your pain pill is making you sick to your stomach: 4. Take your pills after meals (unless your doctor has told you not to). 5. Ask your Dr. for a different pain pill. Incisioncare ? Remove your dressing 48hours after your surgery. Ok to shower and get the incision wet. Do not overtly wash your incision. When done, pad dry, leave open to air thereafter. Avoid creams and ointments directly on your incision. ? Your sutures in the incision will dissolve and fall out on their own. ? Keep the area clean and dry. You may cover it with a gauze bandage if it weeps or rubs against clothing; if you choose to do this, change the dressing everyday. Other instructions ? Use a heating pad, hot water bottle, or gentle massage on your back to reduce stiffness. Avoid putting heat on your incision When should you call for help? ? Call 911 anytime you think you may need emergency care. For example, call if: ? You pass out (lose consciousness). ? You have sudden chest pain and shortness of breath, or you cough upblood. ? You cannot swallow. ? You have severe pain in your neck or back. ? Call your Dr. or seek immediate medical care if: ? You have pain that does not get better after you take pain pills. ? You have loose stitches, or your incision comes open. ? You have blood or fluid draining from the incision. ? You have signs of infection, such as: 1. Increased pain, swelling, warmth, or redness. 2. Red streaks leading from the site. 3. Pus draining from the site. 4. Swollen lymph nodes in your neck or armpits. 5. A fever. ? You have severe pain in your arms. ? You have new or increased weakness or numbness in your arms. ? Watch closely for any changes in your health, and be sure to contact your doctor if: ? You do not have a bowel movement after taking a laxative. Discharge Attestations Time Spent in Discharge Care*: less than 30 min Status at Discharge: Cognitive status at discharge: mildly impaired cognition , Behavioral status at discharge: cooperative , Quality Metrics Clinical Quality Measures [ No reported AMI, CVA or VTE this stay] Coding Level of Care Code Acute Code for g Fwd
[2023-04-21] MEDS: donepezil 5 MG Tablet 10 MG PO (08:51)
[2023-04-21] MEDS: atorvastatin 40 mg Tablet PO (08:51)
[2023-04-21] MEDS: gabapentin 400 mg Capsule 800 MG PO (08:51)
[2023-04-21] MEDS: metoprolol tartrate 50 mg Tablet PO (08:51)
[2023-04-21] MEDS: levothyroxine 125 mcg Tablet PO (08:51)
[2023-04-21] MEDS: montelukast sodium 10 mg Tablet PO (08:52)
[2023-04-21] MEDS: docusate sodium 100 mg Capsule PO (08:52)
[2023-04-21] MEDS: fluticasone nasal spray 16gm Btl 1 SPRAY INTRANASAL (08:52)
--- NOTE | 2023-04-21 09:56 | PC.CHAP ---
Pastoral Care Encounter/Spiritual Assessment Type of Contact [] Declined commercial solar sales consultant visit [] Patient/Family/Request visit [] Outpatient visit [] Follow-up visit [] Physician referral [] Code/Alert [] Routine visit [] Staff referral [] Actively dying [] Patient sleeping [] Family support [] [] Out of room [] Palliative care [] [x] Receiving care in room [] Pre-surgical visit [] Trauma [] Long length of stay [] ICU visit [] Other: Relational/Emotional Strength [] Patient feels connected with others/family/visitors/staff [] Distress [] Loneliness/isolation [] Abandonment Spirituality of Patient [] Person of Jessy [] Attends Caodaism of their Jessy [] Believes in Prayer [] Reads Bible or Congregation materials [] There are Spiritual issues to be addressed [place] Interventions [] Prayer [] Active listening [] Non-anxious presence [] Spiritual/emotional support [] Crisis/trauma care [] Spiritual counseling [] Bereavement support [] Provided bereavement packet [] Provided Bible/devotional materials [] Provided toy/stuffed animal, coloring book to patient or family member [] Provided Communion [] Anointing/[place] [] Salvation [] Completed spiritual assessment [] Other: Impact on Illness or Injury [] Angry [] Fearful [] Anxious [] Often cries [] Exhaustion [] Unable to work [] Unable to attend anabaptism [] Unable to walk/stand [] Unable to read [] Unable to drive [] Unable to eat/drink [] Unable to sleep [] Unable to be with family [] Patient intubated [] Other: Summary Time spent with patient
[2023-04-21] MEDS: lurasidone 80 mg Tablet PO (10:32)
--- NOTE | 2023-04-21 11:11 | PC.NURSE ---
removed drain to anterior neck. Patient tolerated well.
[2023-04-21 11:12] VITALS: PULSE 61
--- NOTE | 2023-04-21 11:12 | PC.NURSE ---
Discharge Note Patient discharged to home via private vehicle accompanied by brother. Discharge instructions reviewed with patient and/or liability claims representative. Mobile pharmacy medications and/or prescriptions provided. Belongings/home medications returned.
== END 2023-04-21 11:13 | disposition home or self-care (01) | DRG 520 ==
LOC: MEDSURG 14:03
PROVIDERS: Admitting Provider Orthopaedic Surgery; PCP Physician Assistant; Visit Provider Orthopaedic Surgery
PROC: 0RB30ZZ Excision of Cervical Vertebral Disc, Open Approach (ICD-10-PCS; CPT 22551; principal; 2023-04-20 07:00)
DX: M47.12 Other spondylosis with myelopathy, cervical region (principal); F31.9 Bipolar disorder, unspecified; Z87.891 Personal history of nicotine dependence
CPT/HCPCS: 51702; 72040; 76000; 94640; 97161; C1713; C1763; C9359; J0330; J0690; J1100; J1170; J1885; J2270; J2405; J2704; J3010; J3490; J7030; J7120; J7626

== ENCOUNTER → 2023-05-08 15:04 | Outpatient (BNVA) | payer MEDICARE, MEDICAID, SELFPAY | PROVIDERS: PCP Physician Assistant; Visit Provider Orthopaedic Surgery | DX: Z98.1 Arthrodesis status (principal); Z47.89 Encounter for other orthopedic aftercare | CPT/HCPCS: 99024 ==

== ENCOUNTER 2023-05-15 13:37 | Outpatient (CLI) | payer MEDICARE, MEDICAID, SELFPAY ==
--- NOTE | 2023-05-15 13:44 | MM_ITS ---
WS: [id number] BILATERAL 3D TOMOSYNTHESIS DIGITAL SCREENING MAMMOGRAPHY WITH CAD CLINICAL INFORMATION: SCREENING HISTORY: Screening mammogram. No current complaints. COMPARISON: 05/13/2022 TECHNIQUE: Bilateral CC and MLO views. FINDINGS: Scattered fibroglandular densities bilaterally. No suspicious focal mass, asymmetry, calcifications, or architectural distortion. No evidence of malignancy. Incidental punctate and lucent centered calci fications. IMPRESSION: MM/[place] [id number] BI-RADS: 2-Benign FOLLOW UP: 1 Year Follow-up Recommend return to annual screening mammography.
== END 2023-05-15 13:38 | disposition home or self-care (01) ==
LOC: RAD 13:37
PROVIDERS: PCP Physician Assistant; Visit Provider Physician Assistant
DX: Z12.31 Encounter for screening mammogram for malignant neoplasm of breast (principal); R92.323 Mammographic fibroglandular density, bilateral breasts
CPT/HCPCS: 77063; 77067

== ENCOUNTER → 2023-06-25 11:09 | Outpatient (BNVA) | payer MEDICARE, MEDICAID, SELFPAY | PROVIDERS: PCP Physician Assistant; Visit Provider Orthopaedic Surgery | DX: Z98.1 Arthrodesis status (principal) | CPT/HCPCS: 72040; 99024 ==

== ENCOUNTER → 2023-07-08 08:41 | Outpatient (BNVA) | payer MEDICARE, MEDICAID, SELFPAY | PROVIDERS: PCP Physician Assistant; Visit Provider Internal Medicine Pulmonary Disease | DX: J43.1 Panlobular emphysema (principal); G47.33 Obstructive sleep apnea (adult) (pediatric); Z85.118 Personal history of other malignant neoplasm of bronchus and lung; Z87.891 Personal history of nicotine dependence | CPT/HCPCS: 99214 ==

== ENCOUNTER 2023-07-18 15:22 | Emergency (ER) | payer MEDICARE, MEDICAID, SELFPAY ==
[2023-07-18 15:27] VITALS: PULSE 67; RESP 18; TEMP 36.8; O2SAT 97
--- NOTE | 2023-07-18 15:41 | ED_ITS ---
HPI - General Adult General: Chief complaint: General Medical Stated complaint: NEUROPATHY ALL OVER Time Seen by Provider: 07/18/23 15:28 History of Present Illness: Manasa Tate is a 63-year-old female that presents to the emergency department with complaints of neuropathy flareup. Patient reports that for years she has had diabetes that has resulted in widespread neuropathy. Patient also has a history of bipolar disorder and tardive dyskinesia. Recently, she underwent an anterior cervical discectomy and fusion C3-C7. That was in March 2023. She has been following up with her surgeon and her primary care as planned. She denies any changes in her cervical complaints. She did take gabapentin 800 mg this morning and this afternoon without any change in her symptoms. She denies chest pain, shortness of breath, strokelike symptoms, weakness, dizziness, fevers, chills Associated symptoms: Deny chest pain, confusion, dyspnea, headache(s), malaise, nausea, rash, palpitations or vomiting Review of Systems General: Reports: 10 or more systems reviewed and unremarkable except in HPI and below Const: Denies: fever(s), chills, change in appetite, change in weight, fatigue or malaise Eyes: Denies: change in vision, eye discomfort, eye discharge or eye redness ENMT: Denies: throat pain, enlarged tonsils, odynophagia, hoarseness, ear or mastoid pain, ear discharge, change in hearing, tinnitus, nasal discharge, nasal congestion, post nasal drip or sinus pain Card: Denies: chest pain, palpitations, irregular heart rhythm, edema, dyspnea on exertion, orthopnea or leg pain with exertion Resp: Denies: dyspnea, productive cough, non-productive cough, wheezing, stridor or chest congestion GI: Denies: abdominal pain, nausea, vomiting, dysphagia, diarrhea, constipation, bloating, GI cramping or hematochezia : Denies: flank pain, difficulty voiding, dysuria, urinary frequency, urinary urgency, urinary hesitancy, oliguria or hematuria Musc: Denies: neck pain, back pain, extremity pain, joint pain, joint swelling, joint redness, joint warmth or muscle weakness Skin/Breast: Denies: rash, pruritus, erythema, photosensitivity or new lesions Neuro: Denies: headache(s), numbness in extremities, weakness in extremities, sensory changes, lack of coordination, difficulty walking, frequent falls, dizziness, confusion, Slurred speech present, difficulty communicating thoughts, seizure-like activity or involuntary movements Endo: Denies: polyuria, polydipsia or tired all the time Alex/Lymph: Denies: easy bruising or easy bleeding PFS ED PFSH: Medical History Tardive dyskinesia Memory change Bipolar I disorder, most recent episode mixed, in remission Psychiatric care Social History Smoking and tobacco/nicotine status: former use of tobacco/nicotine Quit status (tobacco/nicotine): has quit using Year quit tobacco: 1993 Former quit date comment: 1 ppd X 27 years Alcohol intake: never Substance/Drug Use: never Physical Exam Const: COMMON NORMALS: no acute distress, patient oriented x3 and alert GENERAL APPEARANCE: cooperative ORIENTATION/CONSCIOUSNESS: Yes awake, Yes oriented to person, Yes oriented to place and Yes oriented to time HENMT: COMMON NORMALS: normocephalic and atraumatic HEAD & SCALP: normocephalic and atraumatic FACE & SINUS: normal facial exam MOUTH: Normal oral and palatal mucosa present THROAT: posterior oropharynx normal Eye: COMMON NORMALS: Equal, round and reactive pupils present, EOMs intact bilaterally, conjunctivae normal and no scleral icterus GENERAL EYE: appearance normal, both eyes and all related structures ALIGNMENT: Yes ali gnment normal PERIORBITAL: periorbital findings normal CONJUNCTIVA: Yes conjunctivae normal PUPIL: Yes Equal, round and reactive pupils present Neck/C-Spine: COMMON NORMALS: full ROM GENERAL: Yes normal visual inspection Lymph: LYMPHATIC: no lymphadenopathy noted Chest: COMMONS NORMALS: normal inspection of the chest Breast/axilla inspection: Yes no chest deformity, asymmetry, normal contours, no nodules, masses, tenderness Resp: COMMON NORMALS: normal respiratory effort, No retractions, No use of accessory muscles and clear to auscultation bilaterally EFFORT & INSPECTION: Yes able to speak in complete sentences and Yes symmetric chest movement AUSCULTATION: clear to auscultation bilaterally Cardio: COMMON NORMALS: regular rate, regular rhythm and Peripheral pulses 2+ throughout RATE: regular rate RHYTHM: regular rhythm PERIPHERAL PULSES: Peripheral pulses 2+ throughout GI: COMMON NORMALS: Normal to inspection, nondistended, normoactive bowel sounds present, Soft to palpation, non-tender and No hepatosplenomegaly present INSPECTION: Yes normal to inspection AUSCULTATION: Yes normoactive bowel sounds PALPATION: Yes Soft to palpation and Yes No hepatosplenomegaly present RECTAL EXAM: deferred Extremity: COMMON NORMALS: normal to inspection GENERAL: Yes normal exam except as noted Neuro: COMMON NORMALS: patient oriented x3 SENSORIUM/ORIENTATION: Yes alert, Yes oriented to person, Yes oriented to place and Yes oriented to time CRANIAL NERVES: Yes CN normal except as noted Psych: COMMON NORMALS: mental status grossly normal, Normal thought process present, cooperative, activity/motor behavior normal, denies homicidal ideation and denies suicidal ideation THOUGHT PROCESS: Normal thought process present Skin: COMMON NORMALS: no rashes or lesions noted, no wounds and turgor normal GENERAL SKIN EXAM: no rashes or lesions noted and turgor normal Course Vital Signs: Vital signs: Vital Signs Temperature 98.2 F 07/18/23 15:27 Pulse Rate 75 07/18/23 16:33 Respiratory Rate 18 07/18/23 16:33 Blood Pressure 141/77 07/18/23 16:33 Pulse Oximetry 94 07/18/23 16:33 Oxygen Delivery Me thod Room Air 07/18/23 16:33 [facility] - General Adult Medical Decision Making Patient arrives in the emergency department with complaints of numbness and tingling to upper and lower extremities. Patient reports this is a chronic issue. She was diagnosed with diabetic neuropathy years ago. She was previously a diabetic but due to weight loss she now controls diabetes with diet only. In spite of this her symptoms persist. She has been prescribed gabapentin but this is no longer effective for her. She does have follow-up with her primary care physician and neurologist routinely. Here in the emergency department I treated her with 1 mg of Ativan. She is now resting quietly and reports her symptoms have greatly improved. This was after she had been given 2 mg of Ativan and route by EMS. Patient is can to be discharged home. She is waiting for a ride and so she will sit in ED bed while she waits. At this time no further diagnostics are warranted. All questions answered No radiology studies performed this visit Discharge Plan Discharge Patient Disposition: Home Clinical Impression: Bipolar disorder, current episode mixed, moderate, Neuropathy Condition: Stable Prescriptions: No Action (DME) Bone growth stimulator See Rx Instructions .Route .MEDSUPPLY Qty: 1 0RF Rx Instructions: As directed lurasidone 80 mg tablet 80 mg PO DAILY Qty: 30 2RF albuterol sulfate 2.5 mg /3 mL (0.083 %) solution for nebulization 2.5 mg inhalation Q6H PRN (Reason: shortness of breath or wheezing) Qty: 180 11RF montelukast 10 mg tablet 10 mg PO DAILY 30 Days Qty: 90 3RF trazodone 50 mg tablet 50 mg PO BEDTIME cholecalciferol (vitamin D3) 625 mcg (25,000 unit) capsule 50,000 unit PO .weekly Qty: 14 2RF albuterol sulfate 90 mcg/actuation HFA aerosol inhaler 2 inh INHALATION Q4H PRN (Reason: shortness of breath or wheezing) Qty: 18 0RF Breztri Aerosphere 160-9-4.8 mcg/actuation HFA aerosol inhaler 2 inh inhalation BID Qty: 10.7 3RF gabapentin 800 mg tablet 800 mg PO TID 30 Days Qty: 90 0RF metoprolol tartrate 50 mg tablet 50 mg PO DAILY 30 Days Qty: 30 1RF ibuprofen 200 mg Tablet 600 mg PO PRN atorvastatin 40 mg tablet 40 mg PO DAILY acetaminophen 500 mg Tablet 1,000 mg PO Q6H PRN (Reason: Pain) levothyroxine 112 mcg tablet 112 mcg PO DAILY donepezil 10 mg tablet 10 mg PO QAM clonazepam 0.5 mg tablet 0.25 mg PO DAILY PRN (Reason: anxiety) venlafaxine 150 mg capsule,extended release 24hr 300 mg PO QAM oxycodone-acetaminophen 5-325 mg tablet See Rx Instructions .ROUTE .COMPLEX PRN (Reason: Pain) Rx Instructions: TAKE 1 TABLET BY MOUTH EVERY TWELVE HOURS NEEDED DO NOT EXCEED TWO TABLETS PER DAY Movantik 25 mg tablet 25 mg PO DAILY Discharge Orders: Discharge ED (Routine); Ordered 07/18/23 Ordered By: Alecia Horne Referrals: Nieves Anderson PA [Primary Care Provider] - Discharge Diet: Advance as tolerated Discharge Activity: Resume usual activity Patient Instructions: Pain Management Activity Restrictions/Additional Instructions: Please follow-up with your primary care doctor this week. You need to discuss future management of your neuropathy. Please return to the emergency department for new concerning or worsening symptoms Coding Level of Care Code ED [employer] for Mckenzie Schwartz
[2023-07-18] MEDS: LORazepam 2 mg/mL INJ 10 mL MDV 1 MG IV (16:00)
[2023-07-18 16:33] VITALS: BP 141/77; PULSE 75; RESP 18; O2SAT 94
[2023-07-18 18:00] VITALS: BP 138/76; PULSE 69; RESP 16; TEMP 36.8; O2SAT 95
== END 2023-07-18 18:02 | disposition home or self-care (01) ==
PROVIDERS: Emergency Provider Nurse Practitioner; PCP Physician Assistant
DX: G62.9 Polyneuropathy, unspecified (principal); F31.62 Bipolar disorder, current episode mixed, moderate; Z87.891 Personal history of nicotine dependence
CPT/HCPCS: 96374; 99284; J2060

== ENCOUNTER → 2023-07-23 10:38 | Outpatient (BNVA) | payer MEDICARE, MEDICAID, SELFPAY | PROVIDERS: PCP Physician Assistant; Visit Provider Orthopaedic Surgery | DX: Z98.1 Arthrodesis status (principal) | CPT/HCPCS: 72040; 99024 ==

== ENCOUNTER 2023-07-26 11:40 | Emergency (ER) | payer MEDICARE, MEDICAID, SELFPAY ==
[2023-07-26 11:52] VITALS: BP 141/91; PULSE 77; RESP 16; TEMP 36.6; O2SAT 93
--- NOTE | 2023-07-26 12:18 | CTR_ITS ---
PROCEDURE INFORMATION: Exam: CT Cervical Spine Without Contrast Exam date and time: 07/26/2023 12:28 PM Age: 63 years old Clinical indication: Injury or trauma; Fall; Blunt trauma; Prior surgery; Surgery date: 6+ months; Surgery type: Cervical fusion TECHNIQUE: Imaging protocol: Computed tomography of the cervical spine without contrast. Axial, coronal and sagittal reformatted images were created and reviewed. Radiation optimization: All CT scans at this facility use at least one of these dose optimization techniques: automated exposure control; mA and/or kV adjustment per patient size (includes targeted exams where dose is matched to clinical indication); or iterative reconstruction. COMPARISON: MR cervical spin wo con* [id number] 11/03/2022 12:37 PM RADIATION DOSE METRICS: Total DLP (mGy-cm): 641.2 FINDINGS: Bones/joints: Straightening of the normal cervical lordosis. Status post C3-C7 ACDF. No CT evidence of acute fracture, dislocation or subluxation. Alignment anatomic. Mild levoscoliosis. Vertebral body heights maintained. Mild multilevel degenerative changes, characterized by disc space narrowing, osteophytosis and uncovertebral and facet joint hypertrophy. Mild multilevel spinal canal and neural foraminal narrowing. Lungs: Grossly unremarkable. Soft tissues: Grossly unremarkable. CT/CT cervical spin wo con* [id number]: 1[address] No CT evidence of acute cervical spine traumatic injury. 2. Additional findings, as above.
--- NOTE | 2023-07-26 12:18 | CTR_ITS ---
PROCEDURE INFORMATION: Exam: CT Head Without Contrast Exam date and time: 07/26/2023 12:28 PM Age: 63 years old Clinical indication: Injury or trauma; Fall; Blunt trauma (contusions or hematomas); With loss of consciousness; Loss of consciousness for 30 minutes or less TECHNIQUE: Imaging protocol: Computed tomography of the head without contrast. Axial, coronal and sagittal reformatted images were created and reviewed. Radiation optimization: All CT scans at this facility use at least one of these dose optimization techniques: automated exposure control; mA and/or kV adjustment per patient size (includes targeted exams where dose is matched to clinical indication); or iterative reconstruction. COMPARISON: CT head wo con* [id number] 04/28/2018 8:29 PM RADIATION DOSE METRICS: Total DLP (mGy-cm): 901.3 FINDINGS: Brain: Subtle, patchy areas of hypoattenuation in the periventricular and subcortical white matter, nonspecific but suggestive of mild chronic small vessel ischemic disease. No CT evidence of acute intracranial hemorrhage or acute territorial infarction. No significant mass effect or midline shift. Basal cisterns patent. Cerebral ventricles: Prominence of the cortical sulci, cisterns and ventricular system, consistent with cerebral and cerebellar volume loss. Paranasal sinuses: Minimal ethmoid mucosal thickening. No fluid levels. Mastoid air cells: Partial opacification of the mastoid air cells. Bones/joints: No acute osseous abnormality. Soft tissues: Grossly unremarkable. Vasculature: Calcific atherosclerotic disease in the cavernous internal carotid arteries. CT/CT head wo con* [id number]: 1[address] No CT evidence of acute intracranial pathology. 2. Additional findings, as above.
--- NOTE | 2023-07-26 12:19 | ED_ITS ---
HPI - Fall General: Chief Complaint: Fall Stated Complaint: fall / currently dizzy Time Seen by Provider: 07/26/23 12:14 Source: patient Mode of arrival: ambulatory Limitations: no limitations History of Present Illness: 63-year-old female has a history of neur opathy states she has had frequent falls due to her neuropathy states she tripped yesterday fell and she hit her head she been having headaches since then along with some neck pain she denies any other pain elsewhere does have skin tears for right forearm denies any pain there she been ambulatory since the event. Associated symptoms-after fall: Reports headache(s) and neck pain; Denies abdominal pain or chest pain Review of Systems Const: Denies: fever(s), chills, body aches or change in appetite ENMT: Denies: throat pain or dental pain Card: Denies: chest pain Resp: Denies: dyspnea GI: Denies: abdominal pain, nausea, vomiting or diarrhea Musc: Reports: neck pain; Denies: back pain Skin/Breast: Denies: rash Neuro: Reports: headache(s) PFSH ED PFSH: Medical History Tardive dyskinesia Memory change Bipolar I disorder, most recent episode mixed, in remission Psychiatric care Social History Smoking and tobacco/nicotine status: former use of tobacco/nicotine Quit status (tobacco/nicotine): has quit using Year quit tobacco: 1993 Former quit date comment: 1 ppd X 27 years Alcohol intake: never Substance/Drug Use: never Physical Exam Const: COMMON NORMALS: no acute distress, patient oriented x3 and healthy appearing HENMT: OTHER: Contusion noted to forehead Eye: COMMON NORMALS: Equal, round and reactive pupils present and EOMs intact bilaterally PUPIL: Yes Equal, round and reactive pupils present Neck/C-Spine: OTHER: Tenderness noticed to cervical spine Chest: COMMONS NORMALS: normal inspection of the chest and normal palpation of entire chest wall Resp: COMMON NORMALS: normal respiratory effort Cardio: COMMON NORMALS: regular rate, regular rhythm and No murmurs present (Cardio) RATE: regular rate RHYTHM: regular rhythm GI: COMMON NORMALS: Normal to inspection, nondistended, normoactive bowel sounds present, Soft to palpation, non-tender and no masses PALPATION: Yes Soft to palpation Extremity: COMMON NORMALS: full ROM NARRATIVE EXTREMITY EXAM: Skin tears noted to right forearm no tenderness to palpation Neuro: COMMON NORMALS: patient oriented x3, moves all extremities and no focal motor deficits Psych: COMMON NORMALS: mental status grossly normal, Normal thought process present and cooperative THOUGHT PROCESS: Normal thought process present Skin: COMMON NORMALS: no rashes or lesions noted and no wounds GENERAL SKIN EXAM: no rashes or lesions noted Course Vital Signs: Vital signs: Vital Signs Temperature 97.9 F 07/26/23 11:52 Pulse Rate 68 07/26/23 13:20 Respiratory Rate 16 07/26/23 13:20 Blood Pressure 180/89 07/26/23 13:20 Pulse Oximetry 94 07/26/23 13:20 Oxygen Delivery Me thod Room Air 07/26/23 13:20 MDM - Fall Medical Decision Making Patient presents with closed head injury from a fall has had some neck pain imaging here is all normal she is well-appearing here she is stable for discharge she is follow-up PCP return if worsening. Medical Records I reviewed the patient's medical records. Lab Data Radiology Impressions Cervical Spine CT 07/26/23 12:[address]: [address] evidence of acute cervical spine traumatic injury. 2. Additional findings, as above. Head CT 07/26/23 12:[address]: 1[address] evidence of acute intracranial pathology. 2. Additional findings, as above. All radiology interpretation(s) finalized by discharge Discharge Plan Discharge Patient Disposition: Home Clinical Impression: CHI (closed head injury), Fall Condition: Stable Prescriptions: No Action (DME) Bone growth stimulator See Rx Instructions .Route .MEDSUPPLY Qty: 1 0RF Rx Instructions: As directed lurasidone 80 mg tablet 80 mg PO DAILY Qty: 30 2RF albuterol sulfate 2.5 mg /3 mL (0.083 %) solution for nebulization 2.5 mg inhalation Q6H PRN (Reason: shortness of breath or wheezing) Qty: 180 11RF montelukast 10 mg tablet 10 mg PO DAILY 30 Days Qty: 90 3RF trazodone 50 mg tablet 50 mg PO BEDTIME cholecalciferol (vitamin D3) 625 mcg (25,000 unit) capsule 50,000 unit PO .weekly Qty: 14 2RF albuterol sulfate 90 mcg/actuation HFA aerosol inhaler 2 inh INHALATION Q4H PRN (Reason: shortness of breath or wheezing) Qty: 18 0RF Breztri Aerosphere 160-9-4.8 mcg/actuation HFA aerosol inhaler 2 inh inhalation BID Qty: 10.7 3RF gabapentin 800 mg tablet 800 mg PO TID 30 Days Qty: 90 0RF metoprolol tartrate 50 mg tablet 50 mg PO DAILY 30 Days Qty: 30 1RF ibuprofen 200 mg Tablet 600 mg PO Q6H PRN (Reason: PAIN) atorvastatin 40 mg tablet 40 mg PO DAILY acetaminophen 500 mg Tablet 1,000 mg PO Q6H PRN (Reason: Pain) levothyroxine 112 mcg tablet 112 mcg PO DAILY donepezil 10 mg tablet 10 mg PO QAM clonazepam 0.5 mg tablet 0.25 mg PO DAILY PRN (Reason: anxiety) venlafaxine 150 mg capsule,extended release 24hr 300 mg PO QAM oxycodone-acetaminophen 5-325 mg tablet 1 tab PO Q12H PRN (Reason: Pain) Movantik 25 mg tablet 25 mg PO DAILY cyanocobalamin (vitamin B-12) 1,000 mcg/mL solution 1,000 mcg SUBCUT Q30D Discharge Orders: Discharge ED (Routine); Ordered 07/26/23 Ordered By: Katherine Baer Referrals: Nieves Anderson PA [Primary Care Provider] - 4-7 days Discharge Diet: Advance as tolerated Discharge Activity: Resume usual activity Patient Instructions: Head Injury (ED) Coding Level of Care Code ED [employer] Work[employer] for Mckenzie Schwartz
[2023-07-26 12:20] VITALS: BP 156/84; PULSE 65; RESP 16; O2SAT 94
[2023-07-26] MEDS: HYDROcodone-acetaminophen 5-325 mg Tablet 1 TAB PO (12:34)
[2023-07-26 13:20] VITALS: BP 180/89; PULSE 68; RESP 16; O2SAT 94
[2023-07-26] MEDS: bacitracin ointment Pkt 1 EACH TOPICAL (13:46)
== END 2023-07-26 13:49 | disposition home or self-care (01) ==
PROVIDERS: Emergency Provider Emergency Medicine; PCP Physician Assistant
DX: S00.83XA Contusion of other part of head, initial encounter (principal); Z87.891 Personal history of nicotine dependence; W01.0XXA Fall on same level from slipping, tripping and stumbling without subsequent striking against object, initial encounter
CPT/HCPCS: 70450; 72125; 99284

== ENCOUNTER → 2023-08-20 08:59 | Outpatient (BNVA) | payer MEDICARE, MEDICAID, SELFPAY | PROVIDERS: PCP Physician Assistant; Visit Provider Orthopaedic Surgery | DX: Z98.1 Arthrodesis status (principal) | CPT/HCPCS: 72040; 99213 ==

== ENCOUNTER 2023-08-29 10:23 | Emergency (ER) | payer MEDICARE, MEDICAID, SELFPAY ==
[2023-08-29 10:35] VITALS: BP 161/79; PULSE 67; RESP 15; TEMP 36.1; O2SAT 95
--- NOTE | 2023-08-29 10:45 | XRR_ITS ---
PROCEDURE INFORMATION: Exam: XR Abdomen Exam date and time: 08/29/2023 11:05 AM Age: 63 years old Clinical indication: Vomiting; Additional info: Reports diarrhea for 3 wks, n/v today TECHNIQUE: Imaging protocol: Radiologic exam of the abdomen. Views: Frontal supine view of the abdomen. 1 View. COMPARISON: CT chest wo con [id number] 01/05/2023 3:10 PM FINDINGS: Gastrointestinal tract: Possible slight thickening of the wall of the descending/sigmoid colon. No ileus or obstruction. Nonspecific bowel gas pattern.. No bowel dilation. Bones/joints: Unremarkable. XR/XR KUB portable [id number] IMPRESSION: Questionable minimal colonic wall thickening.
--- NOTE | 2023-08-29 10:47 | W.ED.NAVMDI ---
HPI - Nausea/Vomiting/Diarrhea General: Chief complaint: Nausea/Vomiting/Diarrhea Stated complaint: Diarrhea Time Seen by Provider: 08/29/23 10:31 Source: patient Mode of arrival: ambulatory Limitations: no limitations History of Present Illness: Patient reports she has had 3 weeks of watery diarrhea. No abdominal pain. No fever. She reports that she came in today due to nausea and she vomited twice. No hematochezia no hematemesis. Review of Systems General: Reports: 10 or more systems reviewed and unremarkable except in HPI and below PFSH ED PFSH: Medical History Tardive dyskinesia Memory change Bipolar I disorder, most recent episode mixed, in remission Psychiatric care Social History Smoking and tobacco/nicotine status: former use of tobacco/nicotine Quit status (tobacco/nicotine): has quit using Year quit tobacco: 1993 Former quit date comment: 1 ppd X 27 years Alcohol intake: never Substance/Drug Use: never Physical Exam Const: COMMON NORMALS: no acute distress, average body habitus, patient oriented x3, healthy appearing, alert and well nourished GENERAL APPEARANCE: well kempt and well developed HENMT: COMMON NORMALS: normocephalic, atraumatic, external ears normal and moist oral mucous membranes HEAD & SCALP: normocephalic and atraumatic EXTERNAL EAR: Yes external ears normal Eye: COMMON NORMALS: Equal, round and reactive pupils present, EOMs intact bilaterally and conjunctivae normal CONJUNCTIVA: Yes conjunctivae normal PUPIL: Yes Equal, round and reactive pupils present Neck/C-Spine: COMMON NORMALS: full ROM, no lymphadenopathy and supple Chest: CHEST: Yes Symmetrical chest wall rise and No Surgical scars present (Chest) Resp: COMMON NORMALS: normal respiratory effort, No retractions, No use of accessory muscles and clear to auscultation bilaterally AUSCULTATION: clear to auscultation bilaterally Cardio: COMMON NORMALS: regular rate, regular rhythm, S1 normal heart sound present, S2 normal heart sound present, No gallops present (Cardio), No clicks present (Cardio), No murmurs present (Cardio) and No rub (Cardio) RATE: regular rate RHYTHM: regular rhythm HEART SOUNDS: S1 normal heart sound present, S2 normal heart sound present and no murmurs PERIPHERAL PULSES: other (Radial pulses 2+ and symmetric) GI: COMMON NORMALS: Soft to palpation, non-tender and no masses INSPECTION: No abdominal distension PALPATION: Yes Soft to palpation, No Guarding due to palpation present (GI) and No Rebound tenderness present : COMMON NORMALS: Yes no CVA tenderness BLADDER/KIDNEY EXAM: Yes no CVA tenderness Back/Pelvis: COMMON NORMALS: no CVA tenderness Extremity: COMMON NORMALS: normal to inspection, full ROM, capillary refill normal and no clubbing, cyanosis or edema Neuro: COMMON NORMALS: patient oriented x3 SENSORIUM/ORIENTATION: Yes alert Psych: APPEARANCE: Yes well kempt Skin: COMMON NORMALS: no rashes or lesions noted, no wounds, turgor normal and no jaundice GENERAL SKIN EXAM: no rashes or lesions noted and turgor normal Course Vital Signs: Vital signs: Vital Signs Temperature 97.0 F L 08/29/23 10:35 Pulse Rate 67 08/29/23 10:35 Respiratory Rate 15 08/29/23 10:35 Blood Pressure 161/79 08/29/23 10:35 Pulse Oximetry 95 08/29/23 10:35 Oxygen Delivery Me thod Room Air 08/29/23 10:35 MDM - Nausea/Vomiting/Diarrhea Medical Decision Making X-ray KUB personally reviewed and shows plenty of stool burden in the colon. Reviewing patient's med list she is on Percocet but also on Movantik. She reports she started Movantik had limited diarrhea and then stopped it but that she is continue to have diarrhea for 3 weeks now. Reports it is watery. Has not tried enemas. Has a history of constipation. Reviewed the KUB appears the constipation is her issue. To the point now that she is getting nauseous with eating. Will prescribe her enemas, lactulose as well as Zofran for nausea. Encourage patient to use 2-3 enemas per day until she has finally gotten some stool out of her rectal area and then start back her Movantik with the lactulose. Differential Diagnosis Likely gastroenteritis Medical Records I reviewed the patient's medical records. Lab Data I reviewed the patient's lab results. XR interpretation done by ED provider, pending radiology final review Discharge Plan Discharge Patient Disposition: Home Clinical Impression: Constipation due to opioid therapy, Encopresis Condition: Stable Prescriptions: New lactulose 20 gram/30 mL solution 20 g PO BID 7 Days Qty: 420 0RF Fleet Enema 19-7 gram/118 mL enema 118 ml KS BID PRN (Reason: constipation) 3 Days Qty: 798 0RF Rx Instructions: Use until you can make normal stools without it No Action (DME) Bone growth stimulator See Rx Instructions .Route .MEDSUPPLY Qty: 1 0RF Rx Instructions: As directed lurasidone 80 mg tablet 80 mg PO DAILY Qty: 30 2RF albuterol sulfate 2.5 mg /3 mL (0.083 %) solution for nebulization 2.5 mg inhalation Q6H PRN (Reason: shortness of breath or wheezing) Qty: 180 11RF montelukast 10 mg tablet 10 mg PO DAILY 30 Days Qty: 90 3RF trazodone 50 mg tablet 50 mg PO BEDTIME cholecalciferol (vitamin D3) 625 mcg (25,000 unit) capsule 50,000 unit PO .weekly Qty: 14 2RF Breztri Aerosphere 160-9-4.8 mcg/actuation HFA aerosol inhaler 2 inh inhalation BID Qty: 10.7 3RF albuterol sulfate 90 mcg/actuation HFA aerosol inhaler 2 inh INHALATION Q4H PRN (Reason: shortness of breath or wheezing) Qty: 18 6RF gabapentin 800 mg tablet 800 mg PO TID 30 Days Qty: 90 0RF metoprolol tartrate 50 mg tablet 50 mg PO DAILY 30 Days Qty: 30 1RF ibuprofen 200 mg Tablet 600 mg PO Q6H PRN (Reason: PAIN) atorvastatin 40 mg tablet 40 mg PO DAILY acetaminophen 500 mg Tablet 1,000 mg PO Q6H PRN (Reason: Pain) levothyroxine 112 mcg tablet 112 mcg PO DAILY donepezil 10 mg tablet 10 mg PO QAM clonazepam 0.5 mg tablet 0.25 mg PO DAILY PRN (Reason: anxiety) venlafaxine 150 mg capsule,extended release 24hr 300 mg PO QAM oxycodone-acetaminophen 5-325 mg tablet 1 tab PO Q12H PRN (Reason: Pain) Movantik 25 mg tablet 25 mg PO DAILY cyanocobalamin (vitamin B-12) 1,000 mcg/mL solution 1,000 mcg SUBCUT Q30D Discharge Orders: Discharge ED (Routine); Ordered 08/29/23 Ordered By: Tavon Rodriguez Referrals: Nieves Anderson PA [Primary Care Provider] - Discharge Diet: GI Soft Discharge Activity: Resume usual activity Patient Instructions: Constipation (ED), Encopresis (DC), Opioid Safety Activity Restrictions/Additional Instructions: Make sure to stay well-hydrated. You should expect a slight increase of the diarrhea before this resolves. After the enemas have worked you can start back your Movantik as well. The medicines will cause you to have more fluid output into your colon and therefore more diarrhea because they will be trying to get fluid to the stool to soften it. Coding Level of Care Code ED Manager Of Medical for Mckenzie Schwartz
[2023-08-29 11:00] LABS: Basophils # 0.1 10^3/uL (0.0-0.1); Basophils % 1.3 %; Eosinophils # 0.2 10^3/uL (0.0-0.8); Eosinophils % 2.4 %; Hematocrit 38.1 % (36-47); Lymphocytes # 2.3 10^3/uL (0.8-4.8); Lymphocytes % 29.9 %; Mean Corpuscular HGB Conc 32.8 g/dL (30-55); Mean Corpuscular Hemoglobin 30.6 pg (27-33); Mean Corpuscular Volume 93.4 fl (85-98); Mean Platelet Volume 9.3 fL (7.4-10.4); Monocytes # 0.9 10^3/uL (0.2-0.9); Monocytes % 11.3 %; Neutrophils # 4.14 10^3/uL (1.8-7.7); Neutrophils % 54.8 %; Nucleated Red Blood Cells % 0 %; Platelet Count 238 10^3/cmm (157-399); Red Blood Count 4.08 10^6/uL (3.85-5.65); Red Cell Distribution Width 12.6 % (12.1-15.1); White Blood Count 7.55 10^3/uL (3.29-11.43)
[2023-08-29 11:25] LABS: Alanine Aminotransferase 195 U/L (0-33); Albumin Level 3.9 g/dL (3.5-5.2); Alkaline Phosphatase 81 U/L (35-105); Aspartate Amino Transferase 74 U/L (0-32); Blood Urea Nitrogen 18 mg/dL (8-23); Calcium 9.2 mg/dL (8.5-10.5); Carbon Dioxide 27 mmol/L (22-29); Chloride 99 mmol/L (98-107); Creatinine Clr Calc Pharmacy 54.5625; Glomerular Filtration Rate 62.8 mL/min (90-130); Glucose 89 mg/dL (65-115); Osmolality Calculated 285 mOsm/kg (285-295); Sodium 137 mmol/L (136-145); Total Bilirubin 0.5 mg/dL (0.15-1.2); Total Protein 6.9 g/dL (6.6-8.7)
[2023-08-29 11:40] VITALS: PULSE 52; RESP 15; O2SAT 92
== END 2023-08-29 11:42 | disposition home or self-care (01) ==
PROVIDERS: Emergency Provider Emergency Medicine; PCP Physician Assistant
DX: K59.03 Drug induced constipation (principal); T40.2X5A Adverse effect of other opioids, initial encounter; R15.9 Full incontinence of feces; Z87.891 Personal history of nicotine dependence
CPT/HCPCS: 36415; 74018; 80053; 85025; 99284

== ENCOUNTER 2023-10-25 15:02 | Emergency (ER) | payer MEDICARE, MEDICAID, SELFPAY ==
[2023-10-25 15:10] VITALS: BP 135/102; PULSE 82; RESP 16; TEMP 36.8; O2SAT 98
--- NOTE | 2023-10-25 15:24 | W.ED.GENADLT ---
HPI - General Adult General: Chief complaint: General Medical Stated complaint: all over body pain Time Seen by Provider: 10/25/23 15:20 History of Present Illness: 63-year-old female comes in today for complaints of numbness and tingling bilateral hands and feet. Patient has a history of neuropathy secondary to chronic back pain and degenerative disc disorder. Patient routinely takes gabapentin but is having exacerbation of her symptoms. Patient reports that usually a dose of lorazepam would assist with her pain and discomfort. Patient has clonazepam on her list of medications that denies taking medication at this time. Patient does take oxycodone and gabapentin routinely. Patient is alert and oriented. Patient is very sensitive to touch. Patient also has a history of bipolar type I disorder. Review of Systems General: Reports: 10 or more systems reviewed and unremarkable except in HPI and below Neuro: Reports: numbness in extremities PFSH ED PFSH: Medical History Tardive dyskinesia Memory change Bipolar I disorder, most recent episode mixed, in remission Psychiatric care Social History Smoking and tobacco/nicotine status: former use of tobacco/nicotine Quit status (tobacco/nicotine): has quit using Year quit tobacco: 1993 Former quit date comment: 1 ppd X 27 years Alcohol intake: never Substance/Drug Use: never Physical Exam Const: COMMON NORMALS: alert HENMT: COMMON NORMALS: normocephalic HEAD & SCALP: normocephalic Neck/C-Spine: COMMON NORMALS: full ROM Resp: COMMON NORMALS: normal respiratory effort and clear to auscultation bilaterally AUSCULTATION: clear to auscultation bilaterally Cardio: COMMON NORMALS: regular rate and regular rhythm RATE: regular rate RHYTHM: regular rhythm GI: COMMON NORMALS: Soft to palpation PALPATION: Yes Soft to palpation Back/Pelvis: COMMON NORMALS: thoracic and lumbar spine normal to inspection Extremity: COMMON NORMALS: full ROM Neuro: SENSORIUM/ORIENTATION: Yes alert Skin: COMMON NORMALS: turgor normal GENERAL SKIN EXAM: turgor normal Course Vital Signs: Vital signs: Vital Signs Temperature 98.2 F 10/25/23 15:10 Pulse Rate 82 10/25/23 15:10 Respiratory Rate 16 10/25/23 15:10 Blood Pressure 135/102 10/25/23 15:10 Pulse Oximetry 98 10/25/23 15:10 Oxygen Delivery Me thod Room Air 10/25/23 15:10 MDM - General Adult Medical Decision Making 63-year-old female comes in today for complaints of numbness and tingling in bilateral hands and feet. Patient reports that her usual gabapentin was not effective. Vital signs are normal. Differential diagnosis includes but not limited to peripheral neuropathy, anxiety, restless leg syndrome, adverse drug effect. Patient was given 1 mg of Ativan IM. Reviewed exam with patient with recommendation for treatment and follow-up. Patient reports understanding and agreed to plan. No radiology studies performed this visit Discharge Plan Discharge Patient Disposition: Home Clinical Impression: Peripheral neuropathy Qualifiers: Peripheral neuropathy type: polyneuropathy, unspecified Qualified Code(s): G62.9 - Polyneuropathy, unspecified Condition: Stable Prescriptions: No Action (DME) Bone growth stimulator See Rx Instructions .Route .MEDSUPPLY Qty: 1 0RF Rx Instructions: As directed albuterol sulfate 2.5 mg /3 mL (0.083 %) solution for nebulization 2.5 mg inhalation Q6H PRN (Reason: shortness of breath or wheezing) Qty: 180 11RF montelukast 10 mg tablet 10 mg PO DAILY 30 Days Qty: 90 3RF trazodone 50 mg tablet 50 mg PO BEDTIME donepezil 10 mg tablet 10 mg PO QAM Qty: 30 2RF Rx Instructions: Take one tablet by mouth every morning lurasidone 80 mg tablet 80 mg PO DAILY Qty: 30 2RF Rx Instructions: Take one tablet daily with meal/snack of at least 350 calories venlafaxine 150 mg capsule,extended release 24hr 300 mg PO QAM Qty: 60 2RF Rx Instructions: Take 2 capsules by mouth every morning cholecalciferol (vitamin D3) 625 mcg (25,000 unit) capsule 50,000 unit PO .weekly Qty: 14 2RF Breztri Aerosphere 160-9-4.8 mcg/actuation HFA aerosol inhaler 2 inh inhalation BID Qty: 10.7 3RF albuterol sulfate 90 mcg/actuation HFA aerosol inhaler 2 inh INHALATION Q4H PRN (Reason: shortness of breath or wheezing) Qty: 18 6RF clonazepam 0.5 mg tablet 0.25 mg PO DAILY PRN (Reason: anxiety) Qty: 20 1RF gabapentin 800 mg tablet 800 mg PO TID 30 Days Qty: 90 0RF metoprolol tartrate 50 mg tablet 50 mg PO DAILY 30 Days Qty: 30 1RF ibuprofen 200 mg Tablet 600 mg PO Q6H PRN (Reason: PAIN) atorvastatin 40 mg tablet 40 mg PO DAILY acetaminophen 500 mg Tablet 1,000 mg PO Q6H PRN (Reason: Pain) levothyroxine 112 mcg tablet 112 mcg PO DAILY oxycodone-acetaminophen 5-325 mg tablet 1 tab PO Q12H PRN (Reason: Pain) Movantik 25 mg tablet 25 mg PO DAILY cyanocobalamin (vitamin B-12) 1,000 mcg/mL solution 1,000 mcg SUBCUT Q30D Discharge Orders: Discharge ED (Routine); Ordered 10/25/23 Ordered By: Ignacio Sigala Referrals: Nieves Anderson PA [Primary Care Provider] - Discharge Diet: Usual diet Discharge Activity: Increase activity as tolerated Patient Instructions: Opioid Safety, Pain Management Activity Restrictions/Additional Instructions: Continue with routine medications. Follow-up with primary care for further instruction and evaluation. Coding Level of Care Code ED Final Assembly And Packing Supervisor for Mckenzie Schwartz
[2023-10-25] MEDS: LORazepam 2 mg/mL INJ 1 mL 1 MG IM (15:45)
[2023-10-25 16:14] VITALS: RESP 16
== END 2023-10-25 16:15 | disposition home or self-care (01) ==
PROVIDERS: Emergency Provider Nurse Practitioner Family; PCP Physician Assistant
DX: G62.9 Polyneuropathy, unspecified (principal); Z87.891 Personal history of nicotine dependence
CPT/HCPCS: 96372; 99284; J2060

== ENCOUNTER → 2023-11-24 07:54 | Outpatient (BNVA) | payer MEDICARE, MEDICAID, SELFPAY | PROVIDERS: PCP Physician Assistant; Visit Provider Orthopaedic Surgery | DX: Z98.1 Arthrodesis status (principal); M50.30 Other cervical disc degeneration, unspecified cervical region; M43.12 Spondylolisthesis, cervical region; M47.12 Other spondylosis with myelopathy, cervical region | CPT/HCPCS: 72040; 99213 ==

== ENCOUNTER → 2023-12-21 08:33 | Outpatient (BNVA) | payer MEDICAID, OTHER, SELFPAY | PROVIDERS: PCP Physician Assistant; Visit Provider Nurse Practitioner Psychiatric/Mental Health | DX: Z79.899 Other long term (current) drug therapy (principal) | CPT/HCPCS: 80053; 80061; 83036 ==

== ENCOUNTER 2024-01-09 06:54 | Emergency (ER) | payer MEDICARE, MEDICAID, SELFPAY ==
[2024-01-09 06:55] VITALS: BP 140/65; PULSE 55; RESP 16; TEMP 36.6; O2SAT 93; BMI 25.6
--- NOTE | 2024-01-09 07:05 | CTR_ITS ---
PROCEDURE INFORMATION: Exam: CT Head Without Contrast Exam date and time: 01/09/2024 7:27 AM Age: 63 years old Clinical indication: Injury or trauma; Fall; Blunt trauma (contusions or hematomas); Without loss of consciousness TECHNIQUE: Imaging protocol: Computed tomography of the head without contrast. Radiation optimization: All CT scans at this facility use at least one of these dose optimization techniques: automated exposure control; mA and/or kV adjustment per patient size (includes targeted exams where dose is matched to clinical indication); or iterative reconstruction. COMPARISON: CT head wo con* [id number] 07/26/2023 12:28 PM RADIATION DOSE METRICS: Total DLP (mGy-cm): 1114.9 FINDINGS: Brain: There is no acute intracranial hemorrhage. There is lucency in the cerebral white matter, likely mild microvascular disease although non-specific. No evidence of mass. There is no mass effect or midline shift. Torres white differentiation is intact. There are no extra-axial fluid collections. Cerebral ventricles: The ventricles and sulci are enlarged, consistent with volume loss / atrophy. No hydrocephalus. Paranasal sinuses: Visualized sinuses are unremarkable. No fluid levels. Mastoid air cells: No significant mastoid effusion. Bones: No acute fracture. There is ununited left coronoid process which may relate to old fracture. There is anterior location of left mandibular condyle along mandibular eminence anterior to glenoid fossa as before. There are degenerative changes as before in right temporomandibular joint. Soft tissues: Unremarkable as visualized. Vasculature: There is vascular calcification. CT/CT head wo con* [id number] IMPRESSION: 1. No evidence of acute intracranial abnormality. No evidence of acute infarction, hemorrhage, or mass. 2. Atrophy and microvascular disease.
--- NOTE | 2024-01-09 07:05 | XRR_ITS ---
PROCEDURE INFORMATION: Exam: XR Left Knee Exam date and time: 01/09/2024 7:18 AM Age: 63 years old Clinical indication: Injury or trauma; Fall; Blunt trauma; Knee; Left TECHNIQUE: Imaging protocol: Radiologic exam of the left knee. Views: 3 views. COMPARISON: No relevant prior studies available. FINDINGS: Bones/joints: Comminuted intra-articular fracture patella with about 5 mm offset/step-off along dorsal patella articular surface patellofemoral joint spreading, distraction of fragments. No additional displaced fracture nor dislocation seen. Soft tissues: Soft tissue swelling anteriorly, prepatellar with evidence of prominent suprapatellar fluid, effusion or hematoma. No metallic foreign body seen. XR/XR knee LT 3V* [id number] IMPRESSION: Comminuted intra-articular fracture patella with offset, displacement of fragments. Prominent suprapatellar fluid, effusion, and/or hematoma.
--- NOTE | 2024-01-09 07:05 | CTR_ITS ---
PROCEDURE INFORMATION: Exam: CT Cervical Spine Without Contrast Exam date and time: 01/09/2024 7:27 AM Age: 63 years old Clinical indication: Injury or trauma; Fall; Blunt trauma; Prior surgery; Surgery date: 6+ months; Surgery type: Fusion TECHNIQUE: Imaging protocol: Computed tomography of the cervical spine without contrast. Radiation optimization: All CT scans at this facility use at least one of these dose optimization techniques: automated exposure control; mA and/or kV adjustment per patient size (includes targeted exams where dose is matched to clinical indication); or iterative reconstruction. COMPARISON: CT cervical spin wo con* [id number] 07/26/2023 12:28 PM RADIATION DOSE METRICS: Total DLP (mGy-cm): 1028.5 FINDINGS: Bones: No evidence of acute fracture. Patient is status post anterior cervical discectomy and fusion of C3 through C7. There is not significant fusion across the interbody grafts. There is also partial lucency adjacent to C7 and C6 screws bilaterally and left C5 screw. There are uncinate and facet osteophytes with neural foraminal narrowing C3-C4 bilaterally, right C4-C5, right C5-C6, and bilateral C6-C7. Lungs: Lung apices are unremarkable for acute finding. Soft tissues: Unremarkable. CT/CT cervical spin wo con* [id number] IMPRESSION: No acute fracture. Other findings as discussed.
[2024-01-09 07:32] LABS: Basophils # 0.1 10^3/uL (0.0-0.1); Basophils % 0.9 %; Eosinophils # 0.2 10^3/uL (0.0-0.8); Eosinophils % 2.8 %; Hematocrit 39.6 % (36-47); Lymphocytes # 2.2 10^3/uL (0.8-4.8); Lymphocytes % 33.2 %; Mean Corpuscular HGB Conc 31.6 g/dL (30-55); Mean Corpuscular Hemoglobin 30.3 pg (27-33); Mean Corpuscular Volume 96.1 fl (85-98); Mean Platelet Volume 9.3 fL (7.4-10.4); Monocytes # 0.6 10^3/uL (0.2-0.9); Monocytes % 9.8 %; Neutrophils # 3.46 10^3/uL (1.8-7.7); Neutrophils % 53.1 %; Nucleated Red Blood Cells % 0 %; Platelet Count 212 10^3/cmm (157-399); Red Blood Count 4.12 10^6/uL (3.85-5.65); Red Cell Distribution Width 11.8 % (12.1-15.1); White Blood Count 6.51 10^3/uL (3.29-11.43)
--- NOTE | 2024-01-09 07:40 | XRR_ITS ---
PROCEDURE INFORMATION: Exam: XR Nasal Bones Exam date and time: 01/09/2024 7:47 AM Age: 63 years old Clinical indication: Injury or trauma; Fall; Blunt trauma (contusions or hematomas); Nose TECHNIQUE: Imaging protocol: XR of the nasal bones. Views: Minimum of 3 views COMPARISON: 1. CT head wo con* [id number] 01/09/2024 7:[address] head wo con* [id number] 07/26/2023 12:28 PM 3. CR XR cervical spine 4-5V [id number] 10/14/2022 9:16 AM FINDINGS: Sinuses: Well aerated. Bones/joints: No displaced fracture seen. Soft tissues: Tiny punctate faint density along skin anteriorly mid to lower nose. XR/XR nasal bones min 3V [id number] IMPRESSION: No displaced fracture seen of nasal bones.
[2024-01-09 07:51] LABS: Alanine Aminotransferase 14 U/L (0-33); Albumin Level 3.9 g/dL (3.5-5.2); Alkaline Phosphatase 71 U/L (35-105); Anion Gap 9.2 (5-19); Aspartate Amino Transferase 20 U/L (0-32); Blood Urea Nitrogen 16 mg/dL (8-23); Calcium 8.5 mg/dL (8.5-10.5); Carbon Dioxide 31 mmol/L (22-29); Chloride 102 mmol/L (98-107); Creatinine Clr Calc Pharmacy 61.3828; Globulin 2.8 g/dL (1.3-4.6); Glucose 81 mg/dL (65-115); Osmolality Calculated 286 mOsm/kg (285-295); Potassium 4.2 mmol/L (3.5-5.1); Sodium 138 mmol/L (136-145); Total Bilirubin 0.5 mg/dL (0.15-1.2); Total Protein 6.7 g/dL (6.6-8.7)
[2024-01-09 07:52] LABS: Alcohol Level < 10 mg/dL (0-10)
--- NOTE | 2024-01-09 08:25 | ED_ITS ---
HPI - Extremity Problem 2 General: Chief complaint: Extremity Injury, Lower Stated complaint: FALL Time Seen by Provider: 01/09/24 07:04 History of Present Illness: 63-year-old female presents to the [facility] ency room with complaint of fall. Patient states she was drinking last night she fell hit her knee and her head she did not lose consciousness no nausea or vomiting she is not on any anticoagulants. She also has some peripheral neuropathy. Which contributes to her falls. Associated symptoms: Deny chest pain, fever(s) or rash Related Data Home Medications Medication Instructions Recorded Confirmed ibuprofen 200 mg tablet 600 mg PO Q6H PRN PAIN 01/31/20 12/21/23 trazodone 50 mg tablet 50 mg PO BEDTIME 04/15/23 12/21/23 acetaminophen 500 mg tablet 1,000 mg PO Q6H PRN Pain 07/18/23 12/21/23 atorvastatin 40 mg tablet 40 mg PO DAILY 07/18/23 12/21/23 levothyroxine 112 mcg tablet 112 mcg PO DAILY 07/18/23 12/21/23 naloxegol 25 mg tablet (Movantik) 25 mg PO DAILY 07/18/23 12/21/23 oxycodone-acetaminophen 5 mg-325 1 tab PO Q12H PRN Pain 07/18/23 12/21/23 mg tablet cyanocobalamin (vitamin B-12) 1,000 mcg SUBCUT Q30D 07/26/23 12/21/23 1,000 mcg/mL injection solution Previous Rx's Medication Instructions Recorded gabapentin 800 mg tablet 800 mg PO TID 30 days #90 tabs 01/02/20 metoprolol tartrate 50 mg tablet 50 mg PO DAILY 30 days #30 tabs 01/02/20 albuterol sulfate 2.5 mg/3 mL 2.5 mg (3 mL) inhalation Q6H PRN 06/23/22 (0.083 %) solution for nebulization shortness of breath or wheezing #180 mL montelukast 10 mg tablet 10 mg PO DAILY 30 days #90 tabs 09/12/22 cholecalciferol (vitamin D3) 625 50,000 unit PO .weekly #14 caps 11/05/22 mcg (25,000 unit) capsule Bone growth stimulator #1 ea 03/18/23 budesonide 160 mcg-glycopyr 9 2 inh inhalation BID #10.7 grams 05/20/23 mcg-formot 4.8 mcg/actuation HFA inhaler (Breztri Aerosphere) albuterol sulfate 90 mcg/actuation 2 inh inhalation Q4H PRN shortness 08/11/23 aerosol inhaler of breath or wheezing #18 grams clonazepam 0.5 mg tablet 0.25 mg (1/2 x 0.5 mg) PO DAILY 12/21/23 PRN anxiety #15 tabs donepezil 10 mg tablet 10 mg PO QAM #30 tabs 12/21/23 lurasidone 80 mg tablet 80 mg PO DAILY #30 tabs 12/21/23 venlafaxine 150 mg 300 mg (2 x 150 mg) PO QAM #60 caps 12/21/23 capsule,extended release 24 hr tramadol 50 mg tablet 50 mg PO Q8H PRN pain #14 tabs 01/09/24 Allergies Allergy/AdvReac Type Severity Reaction Status Date / Time Sulfa (Sulfonamide Allergy ADR-Seizure Verified 12/21/23 08:08 Antibiotics) Review of Systems 2 Const: Denies: fever(s) or chills Card: Denies: chest pain Resp: Denies: dyspnea GI: Denies: abdominal pain : Denies: dysuria, urinary frequency or urinary urgency Musc: Reports: back pain; Denies: neck pain Skin/Breast: Denies: rash PFSH ED 2 PFSH: Medical History Tardive dyskinesia Memory change Bipolar I disorder, most recent episode mixed, in remission Psychiatric care Social History Smoking and tobacco/nicotine status: never used tobacco/nicotine Quit status (tobacco/nicotine): has quit using Year quit tobacco: 1993 Former quit date comment: 1 ppd X 27 years Alcohol intake: never Substance/Drug Use: never Physical Exam 2 Const: COMMON NORMALS: no acute distress GENERAL APPEARANCE: cooperative and comfortable ORIENTATION/CONSCIOUSNESS: Yes awake, Yes oriented to person, Yes oriented to place and Yes oriented to time HENMT: COMMON NORMALS: normocephalic, atraumatic and hearing grossly normal bilaterally HEAD & SCALP: normocephalic and atraumatic Resp: COMMON NORMALS: normal respiratory effort, No retractions, No use of accessory muscles and clear to auscultation bilaterally AUSCULTATION: clear to auscultation bilaterally Cardio: COMMON NORMALS: regular rate, regular rhythm and No murmurs present (Cardio) RATE: regular rate RHYTHM: regular rhythm GI: COMMON NORMALS: Soft to palpation and No hepatosplenomegaly present A USCULTATION: Yes normoactive bowel sounds PALPATION: Yes Soft to palpation, No Tenderness to palpation present (GI), No Guarding due to palpation present (GI) and Yes No hepatosplenomegaly present Extremity: COMMON NORMALS: normal to inspection, capillary refill normal, no clubbing, cyanosis or edema, no calf tenderness and no pedal edema Neuro: SENSORIUM/ORIENTATION: Yes oriented to person, Yes oriented to place and Yes oriented to time Skin: COMMON NORMALS: no rashes or lesions noted GENERAL SKIN EXAM: no rashes or lesions noted Course 2 Vital Signs: Vital signs: Vital Signs Temperature 97.9 F 01/09/24 06:55 Pulse Rate 88 01/09/24 10:46 Respiratory Rate 16 01/09/24 06:55 Blood Pressure 166/64 01/09/24 10:46 Pulse Oximetry 97 01/09/24 10:46 Oxygen Delivery Me thod Room Air 01/09/24 06:55 MDM - Extremity (Nontraumatic) Medical Decision Making Patient has a patella fracture. No evidence of long bone fracture. Will place patient in knee immobilizer. Nonweightbearing on crutches referred to orthopedics pain medications given. Lab Data I reviewed the patient's lab results. 01/09/24 07:24 01/09/24 07:24 Radiology Impressions Cervical Spine CT 01/09/24 07:05 IMPRESSION: No acute fracture. Other findings as discussed. Head CT 01/09/24 07:05 IMPRESSION: 1. No evidence of acute intracranial abnormality. No evidence of acute infarction, hemorrhage, or mass. 2. Atrophy and microvascular disease. Knee X-Ray 01/09/24 07:05 IMPRESSION: Comminuted intra-articular fracture patella with offset, displacement of fragments. Prominent suprapatellar fluid, effusion, and/or hematoma. Nasal Bones X-Ray 01/09/24 07:40 IMPRESSION: No displaced fracture seen of nasal bones. Laboratory Results WBC 6.51 10^3/uL (3.29-11.43) 10/12/24 07: RBC 4.12 10^6/uL (3.85-5.65) 01/09/24 07: Hgb 12.50 g/dL (11.27-16.99) 01/09/24 07:24 Hct 39.6 % (36-47) 01/09/24 07: MCV 96.1 fl (85-98) 01/09/24 07: MCH 30.3 pg (27-33) 01/09/24 07: MCHC 31.6 g/dL (30-55) 01/09/24 07: RDW 11.8 % (12.1-15.1) L 01/09/24: Plt Count 212 10^3/cmm (157-399) 01/09/24 07: MPV 9.3 fL (7.4-10.4) 01/09/24 07: Neut % (Auto) 53.1 % 01/09/24 07: Lymph % (Auto) 33.2 % 01/09/24 07:24 Millard % (Auto) 9.8 % 01/09/24 07:24 Eos % (Auto) 2.8 % 01/09/24 07:24 Baso % (Auto) 0.9 % 01/09/24: Neut # (Auto) 3.46 10^3/uL (1.8-7.7) 01/09/24 07:24 Lymph # (Auto) 2.2 10^3/uL (0.8-4.8) 01/09/24:24 Millard # (Auto) 0.6 10^3/uL (0.2-0.9) 01/09/24 07:24 Eos # (Auto) 0.2 10^3/uL (0.0-0.8) 01/09/24: Baso # (Auto) 0.1 10^3/uL (0.0-0.1) 01/09/24 07:24 Nucleated RBC % (auto) 0 % 01/09/24 07:24 Nucleated RBCs # 0.0 /100WBC 01/09/24 07:24 Sodium 138 mmol/L (136-145) 01/09/24 07:24 Potassium 4.2 mmol/L (3.5-5.1) 01/09/24 07:24 Chloride 102 mmol/L (98-107) 01/09/24 07:24 Carbon Dioxide 31 mmol/L (22-29) H 01/09/24 07:24 Anion Gap 9.2 (5-19) 01/09/24 07:24 BUN 16 mg/dL (8-23) 01/09/24 07:24 Creatinine 0.8 mg/dL (0.5-0.9) 01/09/24 07:24 GFR Calculation 72.0 mL/min (90-130) L 01/09/24 07:24 Glucose 81 mg/dL (65-115) 01/09/24 07:24 Calculated Osmolality 286 mOsm/kg (285-295) 01/09/24 07:24 Calcium 8.5 mg/dL (8.5-10.5) 01/09/24 07:24 Total Bilirubin 0.5 mg/dL (0.15-1.2) 01/09/24 07:24 AST 20 U/L (0-32) 01/09/24 07:24 ALT 14 U/L (0-33) 01/09/24 07:24 Alkaline Phosphatase 71 U/L (35-105) 01/09/24 07:24 Total Protein 6.7 g/dL (6.6-8.7) 01/09/24 07:24 Albumin 3.9 g/dL (3.5-5.2) 01/09/24 07:24 Globulin 2.8 g/dL (1.3-4.6) 01/09/24 07:24 Ethyl Alcohol < 10 mg/dL (0-10) 01/09/24 07:24 All radiology interpretation(s) finalized by discharge Discharge Plan Discharge Patient Disposition: Home Clinical Impression: Left patella fracture Qualifiers: Encounter type: initial encounter Fracture type: closed Fracture morphology: c omminuted Fracture alignment: displaced Qualified Code(s): S82.042A - Displaced comminuted fracture of left patella, initial encounter for closed fracture Condition: Stable Prescriptions: New tramadol 50 mg tablet 50 mg PO Q8H PRN (Reason: pain) Qty: 14 0RF No Action (DME) Bone growth stimulator See Rx Instructions .Route .MEDSUPPLY Qty: 1 0RF Rx Instructions: As directed donepezil 10 mg tablet 10 mg PO QAM Qty: 30 2RF Rx Instructions: Take one tablet by mouth every morning lurasidone 80 mg tablet 80 mg PO DAILY Qty: 30 2RF Rx Instructions: Take one tablet daily with meal/snack of at least 350 calories venlafaxine 150 mg capsule,extended release 24hr 300 mg PO QAM Qty: 60 2RF Rx Instructions: Take 2 capsules by mouth every morning clonazepam 0.5 mg tablet 0.25 mg PO DAILY PRN (Reason: anxiety) Qty: 15 2RF Rx Instructions: Take one-half tablet once daily, if needed for anxiety albuterol sulfate 2.5 mg /3 mL (0.083 %) solution for nebulization 2.5 mg inhalation Q6H PRN (Reason: shortness of breath or wheezing) Qty: 180 11RF montelukast 10 mg tablet 10 mg PO DAILY 30 Days Qty: 90 3RF trazodone 50 mg tablet 50 mg PO BEDTIME cholecalciferol (vitamin D3) 625 mcg (25,000 unit) capsule 50,000 unit PO .weekly Qty: 14 2RF Breztri Aerosphere 160-9-4.8 mcg/actuation HFA aerosol inhaler 2 inh inhalation BID Qty: 10.7 3RF albuterol sulfate 90 mcg/actuation HFA aerosol inhaler 2 inh INHALATION Q4H PRN (Reason: shortness of breath or wheezing) Qty: 18 6RF gabapentin 800 mg tablet 800 mg PO TID 30 Days Qty: 90 0RF metoprolol tartrate 50 mg tablet 50 mg PO DAILY 30 Days Qty: 30 1RF ibuprofen 200 mg Tablet 600 mg PO Q6H PRN (Reason: PAIN) atorvastatin 40 mg tablet 40 mg PO DAILY acetaminophen 500 mg Tablet 1,000 mg PO Q6H PRN (Reason: Pain) levothyroxine 112 mcg tablet 112 mcg PO DAILY oxycodone-acetaminophen 5-325 mg tablet 1 tab PO Q12H PRN (Reason: Pain) Movantik 25 mg tablet 25 mg PO DAILY cyanocobalamin (vitamin B-12) 1,000 mcg/mL solution 1,000 mcg SUBCUT Q30D Discharge Orders: Discharge ED (Routine); Ordered 01/09/24 Ordered By: Audie South Referrals: Nieves Anderson PA [Primary Care Provider] - Discharge Diet: Usual diet Discharge Activity: Resume usual activity Patient Instructions: Opioid Safety, Pain Management Activity Restrictions/Additional Instructions: Thank you for choosing [facility] for your healthcare needs today. It is very important that you follow up as instructed or that you return to the Emergency Department should you have concerns or if your condition changes or worsens in any way. You were seen today after a fall. You have a comminuted mildly displaced left patellar fracture. Recommend knee immobilizer elevate and ice as needed nonweightbearing on the affected leg use crutches. You are given tramadol to use for pain you can follow-up with orthopedics. fast food restaurant manager will make arrangements for a follow-up appointment. Coding Level of Care Code ED Production Team Advisor for Mckenzie Schwartz
[2024-01-09 10:46] VITALS: BP 166/64; PULSE 88; O2SAT 97
--- NOTE | 2024-01-11 07:15 | DCPLANNER ---
message sent to ortho for er f/u
== END 2024-01-09 10:47 | disposition home or self-care (01) ==
PROVIDERS: Emergency Provider Family Medicine; PCP Physician Assistant
DX: S82.042A Displaced comminuted fracture of left patella, initial encounter for closed fracture (principal); Z87.891 Personal history of nicotine dependence; W19.XXXA Unspecified fall, initial encounter
CPT/HCPCS: 29530; 70160; 70450; 72125; 73562; 80053; 80307; 85025; 99284; E0114

== ENCOUNTER → 2024-01-15 08:36 | Outpatient (BNVA) | payer MEDICARE, MEDICAID, SELFPAY | PROVIDERS: PCP Physician Assistant; Visit Provider Physician Assistant | DX: S82.042A Displaced comminuted fracture of left patella, initial encounter for closed fracture (principal); X58.XXXA Exposure to other specified factors, initial encounter | CPT/HCPCS: 73562; 99204 ==

== ENCOUNTER 2024-01-18 12:42 | Day surgery (SDC) | payer MEDICARE, MEDICAID, SELFPAY ==
[2024-01-18] VITALS (10 sets, daily range): BP systolic 128–195; BP diastolic 42–84; PULSE 56–78; RESP 12–18; TEMP 36.3–36.4; O2SAT 90–100; BMI 25.6
--- NOTE | 2024-01-18 | XR_ITS ---
WS: [id number] Exam: XR knee LT 3V* [id number] Date/Time of Exam: 01/18/2024 12:00 AM Reason For Exam: ISELA PICS AP and lateral C-arm images of the patella are submitted for evaluation. Images depict screw fixation involving a comminuted fracture of the patella.
[2024-01-18] MEDS: acetaminophen 1,000 MG/100 ML PIGGYBACK 400 MG IV (13:17)
[2024-01-18] MEDS: ketorolac 30 mg/mL INJ IVP (13:17)
[2024-01-18] MEDS: sodium chloride 0.9% 1,000 ML 30 ML IV (13:18)
--- NOTE | 2024-01-18 13:23 | ECG_ITS ---
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
--- NOTE | 2024-01-18 13:38 | W.PM.OPSUD ---
Surgery/Procedure H&P Update DATE OF PROCEDURE: January 18, 2024 DATE H&P PERFORMED: 01/15/24 H&P UPDATE INFORMATION: I have reviewed H&P completed within last 30 days, I have examined patient prior to procedure and No changes to prior documentation PREOP DIAGNOSIS: Left patella fracture displaced PRIMARY INDICATION FOR PROCEDURE: Left patella fracture displaced comminuted PLANNED PROCEDURE: Operation Date: 01/18/24 14:20 Proposed Procedures p ORIF Patella / Fracture(Left) - Robert Munroe DO
--- NOTE | 2024-01-18 13:54 | ANES.PREANE2 ---
Pre-Anesthetic Assessment Height/Weight: Height 1.57 m Weight 63.503 kg Temp Pulse Resp BP Pulse Ox O2 Del Method 97.3 F L 56 L 16 128/42 93 Room Air 01/18/24 13:06 01/18/24 13:06 01/18/24 13:06 01/18/24 13:06 01/18/24 13:06 01/18/24 13:08 Preop Diagnosis: Left patella fracture displaced Operation Date: 01/18/24 14:20 Proposed Procedures p ORIF Patella / Fracture(Left) - Robert Bastrop, DO Familial anesthetic complications: None Was Beta Ynai taken within 24 hours: N/A Was Clonidine taken within 24 hours: N/A Last intake: Intake Last Liquid Date 01/18/24 Last Liquid Time 06:00 Last Solid Date 01/17/24 Last Solid Time 11:00 Social No alcohol and No tobacco Exam alert, oriented x 3, clear to auscultation bilaterally and regular rate & rhythm Pulmonary Chronic Obstructive Pulmonary Disease and Sleep Apnea CV/HEM Hypertension Metabolic Thyroid Disease Anesthetic Plan ASA status: 3 Anesthesia: General and Regional (specify below) Risk of > 500 ml blood loss (7ml/kg in children): No Medications/Allergies Home Medications Medication Instructions Recorded Confirmed Last Taken Type gabapentin 800 mg tablet 800 mg PO TID 30 days #90 tabs 01/02/20 01/15/24 01/15/24 Rx metoprolol tartrate 50 mg tablet 50 mg PO DAILY 30 days #30 tabs 01/02/20 01/15/24 01/18/24 Rx ibuprofen 200 mg tablet 600 mg PO Q6H PRN PAIN 01/31/20 01/15/24 01/15/24 History albuterol sulfate 2.5 mg/3 mL 2.5 mg (3 mL) inhalation Q6H PRN 06/23/22 01/15/24 01/15/24 Rx (0.083 %) solution for nebulization shortness of breath or wheezing #180 mL montelukast 10 mg tablet 10 mg PO DAILY 30 days #90 tabs 09/12/22 01/15/24 01/14/24 Rx cholecalciferol (vitamin D3) 625 50,000 unit PO .weekly #14 caps 11/05/22 01/15/24 01/12/24 Rx mcg (25,000 unit) capsule Bone growth stimulator #1 ea 03/18/23 01/15/24 Unknown Rx trazodone 50 mg tablet 50 mg PO BEDTIME 04/15/23 01/15/24 01/14/24 History budesonide 160 mcg-glycopyr 9 2 inh inhalation BID #10.7 grams 05/20/23 01/15/24 01/14/24 Rx mcg-formot 4.8 mcg/actuation HFA inhaler (Breztri Aerosphere) acetaminophen 500 mg tablet 1,000 mg PO Q6H PRN Pain 07/18/23 01/15/24 01/15/24 History atorvastatin 40 mg tablet 40 mg PO DAILY 07/18/23 01/15/24 01/14/24 History levothyroxine 112 mcg tablet 112 mcg PO DAILY 07/18/23 01/15/24 01/18/24 History cyanocobalamin (vitamin B-12) 1,000 mcg SUBCUT Q30D 07/26/23 01/15/24 12/21/23 History 1,000 mcg/mL injection solution albuterol sulfate 90 mcg/actuation 2 inh inhalation Q4H PRN shortness 08/11/23 01/15/24 01/15/24 Rx aerosol inhaler of breath or wheezing #18 grams clonazepam 0.5 mg tablet 0.25 mg (1/2 x 0.5 mg) PO DAILY 12/21/23 01/15/24 Unknown Rx PRN anxiety #15 tabs donepezil 10 mg tablet 10 mg PO QAM #30 tabs 12/21/23 01/15/24 01/14/24 Rx lurasidone 80 mg tablet 80 mg PO DAILY #30 tabs 12/21/23 01/15/24 01/14/24 Rx venlafaxine 150 mg 300 mg (2 x 150 mg) PO QAM #60 caps 12/21/23 01/15/24 01/14/24 Rx capsule,extended release 24 hr hydrocodone 5 mg-acetaminophen 325 1 tab PO Q6H PRN pain 5 days #20 01/15/24 01/15/24 01/15/24 Rx mg tablet tabs Allergies Allergy/AdvReac Type Severity Reaction Status Date / Time Sulfa (Sulfonamide Allergy ADR-Seizure Verified 01/15/24 08:43 Antibiotics) Current Medications Generic Name Dose Route Start Last Admin Trade Name Freq PRN Reason Stop Dose Admin Sodium Chloride 1,000 mls @ 30 mls/hr 01/18/24 13:00 01/18/24 13:18 Sodium Chloride 0.9% IV 01/19/24 12:59 30 mls/hr .Q24H BHUMI Administration PFSH Anesthesia Medical History Tardive dyskinesia Memory change Bipolar I disorder, most recent episode mixed, in remission Psychiatric care Social History Smoking and tobacco/nicotine status: never used tobacco/nicotine Quit status (tobacco/nicotine): has quit using Year quit tobacco: 1993 Former quit date comment: 1 ppd X 27 years Alcohol intake: never Substance/Drug Use: never Data Anesthesia Cardiac Studies: No Data to Display
--- NOTE | 2024-01-18 13:55 | ANES.PROC ---
Anesthesia Procedures Procedure/Date: 01/18/24 Nerve Block ^: Nerve Block 1: Main Anesthesia: general anesthesia Time Out Performed: Yes Consent: requested by attending/covering physician, from patient, from other, risks and benefits reviewed and patient agrees to proceed Nerve block location: adductor canal (L) Anesthesia monitors applied: pulse oximetry, EKG, BP cuff and oxygen Nerve block position: supine Anesthetic Used: ropivicaine 0.5% (20 ml) Ultrasound used to: recognize landmarks and visualize and ID femerol nerve Nerve Stimulator Used?: No Interscalene/Femoral BLK: 4 stimuplex 21 g needle used for position and inplane approach, visualize local anesthetic spread and no vascular puncture identified Injection: neg aspiration of heme Patient Tolerated Procedure: well Complications: none
--- NOTE | 2024-01-18 13:56 | PC.NURSE ---
1345: MAGO performed LLE extremity nerve block using 20 ml .5% ropivicaine
[2024-01-18] MEDS: ceFAZolin 2,000 MG in sodium chloride 0.9% (plus) 50 ML 100 MG IV (14:07)
[2024-01-18] MEDS: vancomycin 1,000 MG SDV 1000 MG XX (16:38)
--- NOTE | 2024-01-18 17:07 | P.OP_ITS ---
Operative Report Date of procedure: January 18, 2024 Pre-op diagnosis: Left knee patella fracture Post-op diagnosis: Same Procedure done: Left knee patella fracture open reduction internal fixation Implants: Arthrex [place] tape cerclage and 2 x Arthrex 4.0 mm blunted headed compression lag screws Surgeon: Robert Munroe DO Research Program Internship: Haim Munroe PA-C: JOMAR was necessary for assistance in this case with leg positioning, reduction retraction and protection of neurovascular structures as well as assistance in implantation fixation wound closure and dressing application. Anesthesia: General Estimated blood loss: 50 mL 107 minutes IV fluids: 1000 mL Complications: None Findings: See operative report narrative Condition: stable Disposition: same day Brief History: Patient is a pleasant 63-year-old female who sustained a left knee patellar fracture that has significant displacement lack of extensor mechanism and significant comminution in the transverse and vertical planes. She was seen evaluated she also was noted of having significant displacement and articulation step-off. At this point in time we talked about in office about her treatment options are as nonoperative and operative invention. At this point in time I feel given her lack of extensor mechanism as well as joint space fracture displacement would recommend surgical intervention we talked about this in detail in the office and through shared decision making patient like to proceed with surgical intervention. She is here today to proceed to the OR for left knee patellar ORIF. She understands the ins and outs procedure risk benefits complication alternatives surgery and through shared shared decision-making elects proceed with surgical invention today. All questions answered at this time. Procedure: Patient was seen eval in the preoperative holding area. Consent was reviewed and signed with patient. Correct extremity was then subsequently marked. Patient then was seen evaluate by anesthesia was cleared for surgery she was taken back to the operative suite. Patient was kept in supine position all bony promises well-padded patient was appropriate secured to bed. She underwent anesthesia per the anesthesia part been once probably anesthetized a nonsterile tourniquet was applied to the left thigh. We then subsequently prepped and draped the left lower extremity in standard orthopedic fashion. Final timeout performed. Patient received appropriate preoperative antibiotics. Esmarch tourniquet was used exsanguinate left lower extremity tourniquet was inflated to 250 mmHg. Started with a standard anterior midline incision directly over the fracture site of patella. Sharp scalpel incision was made through skin and subcutaneous tissues subsequently made full-thickness skin flaps medially and laterally this was extending both couple fingerbreadths above and below the patella to have appropriate trajectory well placing of the cannulated screws. At this point in time I then subsequently mobilized and came down directly on the fracture site. Thankfully patient's medial and lateral retinaculum's were intact she did have disruption of the fascia directly overlying at the fracture site stripping of the periosteum and significant fracture pattern. There was a main transverse fracture pattern with significant displacement and joint step-off as well as there was a small vertical component with a small inferior lateral fracture fragment that would be captured by a screw. At this point in time plan was for a parallel cannulated screw fixation with [id number] suture tape. I utilized Arthrex patella ORIF fixation system where the screws are blunted. At this point in time I then thoroughly irrigated and debrided out any periosteum at the fracture site and cleaned the fracture site to have it satisfactory reduction utilized tenaculum clamps using both of these clamping on both the medial and lateral aspects to maintain my reduction. At this point in time I then subsequently brought in the fluoroscopic imaging to confirm satisfactory reduction which was achieved with my clamps. Next I then placed 2 K wires in parallel fashion traversing both of the main fracture fragments particularly the transverse fracture. At this point in time once I satisfied with the placement of these I subsequently measured the screws at the satisfactory placement and then utilized the cannulated drill bit per Arthrex's protocol these were subsequently drilled up to the fracture site and then subsequently placed two 4.0 Arthrex headed partially-threaded lag screws. My lateral screw was slightly longer into prominent proximally as result I switched this out for a shorter screw once I satisfied with the length I then subsequently utilized Arthrex cerclage system I passed this in [id number] fashion and then subsequently utilizing their cerclage system and tightened her tightened with the tensioner up to the standard 60 and then subsequently through a half hitch subsequently tension this once again and through an additional has have hitch and did a final tensioner's had excellent sturdy fixation of the fracture site with moving as a complete unit. At this point time satisfied with my fixation. I then brought in fluoroscopic imaging confirmed satisfactory reduction I then took the knee through 30 degrees of flexion no diastases or displacement of the fracture fragment. At this point in time satisfied with our fixation and confirmed satisfactory reduction. At this point I am thoroughly rogation performed tourniquet deflated hemostasis satisfactory. I then subsequently closed in layered fashion with closure of the periosteum and fascia over the patella as well as the subcutaneous tissue and then closed this with kostas for the skin. Soft dressing then subsequently applied as well as knee immobilizer and kept in extension. Patient waken from anesthesia taken PACU stable condition. Disposition: Patient taken PACU in stable condition recovering well. Patient will be toe- touch weightbearing utilize crutches strict no knee range of motion at this time. Given appropriate pain medication as well as DVT prophylaxis. Patient understands agrees to current plan. Questions answered.
--- NOTE | 2024-01-18 17:09 | W.PM.BPON ---
Date of Procedure: [January 18, 2024] Surgeon: [Dr. Munroe DO] Turkey Farmer(s): [Haim Munroe PA-C] Procedure(s) performed: [Left knee patella open reduction internal fixation] Findings of the procedure(s): [Left knee comminuted and displaced patella fracture. Procedure went well and as planned.] Estimated blood loss: [50 mL] Specimen(s) removed: [N/A] Post-operative diagnosis: Left knee comminuted displaced patella fracture
--- NOTE | 2024-01-18 17:12 | PM.PACU ---
PACU note Narrative: Patient is a 63-year-old female that underwent a left knee patella ORIF. Pt transferred to PACU in stable condition. Dressing is dry. pt is awake and alert. pt can wiggle toes and plantarflex and dorsiflex foot. pt able to perform straight leg raise, Femoral nerve intact. Distal pulses are palpable toes are warm and well-perfused. Cap refill is normal and under 2 seconds. Sensation to foot is intact. Pain is controlled. Exam: awake Disposition: discharged
--- NOTE | 2024-01-18 17:16 | SUR.PHASEI ---
pharmacy here to deliver patient rx from dr. Munroe. Patient's family members are not here to sign for meds. 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
--- NOTE | 2024-01-18 17:25 | SUR.PHASEI ---
Patient is able to move toes to left foot, toes warm and pink. dressing to left knee dry and intact.
[2024-01-18] MEDS: hyDRALAzine 20 mg/mL INJ 1 mL 5 MG IVP (17:29)
[2024-01-18] MEDS: HYDROcodone-acetaminophen 7.5-325 mg Tablet 1 TAB PO (18:03)
--- NOTE | 2024-01-18 18:38 | SUR.PHASEII ---
Patient reached 30min stay in phase2. patient stated her pain was an 8. I asked patient if she needed further pain management before going home and she stated she was comfortable enough with her pain at the present level to go home and that she wanted to go home. PAtients brother in room for conversation. Patient also stated she wears oxygen at 2-3L at home intermittently. I instructed patient to wear it tonight when she got home. patient voiced understanding. Patient was able to transfer without bearing weight to left knee from wheelchair to car. She was d/c with rx for walker and instructed to take to HOME or [facility] tomorrow due to them both being closed at time of d/c.
--- NOTE | 2024-01-18 18:40 | ANE.PACU2 ---
Inpatient post-anesthesia follow up: Airway intact: Yes Vital signs: Temperature 97.5 F Pulse Rate 78 Respiratory Rate 18 Blood Pressure 170/80 Pulse Oximetry 92 Oxygen Delivery Me thod Nasal Cannula Oxygen Flow Rate 2 Fraction of Inspir ed Oxygen Hydration adequate: Yes Nausea and vomiting: No Pain level: 1 Mental status: Baseline
== END 2024-01-18 18:40 | disposition home or self-care (01) ==
PROVIDERS: PCP Family Medicine; Visit Provider Student in an Organized Health Care Education/Training Program
PROC: (CPT 27524; principal; 2024-01-18 14:20)
DX: S82.002A Unspecified fracture of left patella, initial encounter for closed fracture (principal); W19.XXXA Unspecified fall, initial encounter; J44.9 Chronic obstructive pulmonary disease, unspecified; G47.30 Sleep apnea, unspecified; I10 Essential (primary) hypertension; Z87.891 Personal history of nicotine dependence
CPT/HCPCS: 27524; 73562; 76000; 93005; C1713; J0131; J0360; J0690; J1100; J1885; J2405; J2704; J2795; J3010; J3370; J3490; J7030

== ENCOUNTER → 2024-02-05 10:38 | Outpatient (BNVA) | payer MEDICARE, MEDICAID, SELFPAY | PROVIDERS: PCP Family Medicine; Visit Provider Physician Assistant | DX: S82.042A Displaced comminuted fracture of left patella, initial encounter for closed fracture (principal); Z98.890 Other specified postprocedural states; Y99.9 Unspecified external cause status | CPT/HCPCS: 73560; 73565; 99024 ==

== ENCOUNTER → 2024-02-19 11:06 | Outpatient (BNVA) | payer MEDICARE, MEDICAID, SELFPAY | PROVIDERS: PCP Family Medicine; Visit Provider Physician Assistant | DX: Z98.890 Other specified postprocedural states (principal); S82.042D Displaced comminuted fracture of left patella, subsequent encounter for closed fracture with routine healing; X58.XXXD Exposure to other specified factors, subsequent encounter; Z46.89 Encounter for fitting and adjustment of other specified devices; S82.042S Displaced comminuted fracture of left patella, sequela; X58.XXXS Exposure to other specified factors, sequela | CPT/HCPCS: 73560; 73565 ==

== ENCOUNTER 2024-02-19 12:03 | Outpatient (CLI) | payer MEDICARE, MEDICAID, SELFPAY | END 2024-02-19 12:04 | disposition home or self-care (01) | LOC: SPT 12:04 | PROVIDERS: PCP Family Medicine; Visit Provider Physician Assistant | DX: Z46.89 Encounter for fitting and adjustment of other specified devices (principal); S82.042S Displaced comminuted fracture of left patella, sequela; X58.XXXS Exposure to other specified factors, sequela | CPT/HCPCS: 97760; 99024; L1832 ==

== ENCOUNTER → 2024-03-08 11:05 | Outpatient (BNVA) | payer MEDICARE, OTHER, SELFPAY | PROVIDERS: PCP Family Medicine; Visit Provider Physician Assistant | DX: Z98.890 Other specified postprocedural states (principal); S82.042D Displaced comminuted fracture of left patella, subsequent encounter for closed fracture with routine healing; X58.XXXD Exposure to other specified factors, subsequent encounter | CPT/HCPCS: 73560; 73565; 99024 ==

== ENCOUNTER → 2024-04-01 10:01 | Outpatient (BNVA) | payer MEDICARE, SELFPAY | PROVIDERS: PCP Family Medicine; Visit Provider Physician Assistant | DX: Z98.890 Other specified postprocedural states; S82.042D Displaced comminuted fracture of left patella, subsequent encounter for closed fracture with routine healing; X58.XXXD Exposure to other specified factors, subsequent encounter | CPT/HCPCS: 73560; 73565; 99024 ==

== ENCOUNTER 2024-05-30 13:03 | Outpatient (CLI) | payer MEDICARE, MEDICAID, SELFPAY ==
--- NOTE | 2024-05-30 13:08 | MM_ITS ---
WS: [id number] BILATERAL 3D TOMOSYNTHESIS DIGITAL SCREENING MAMMOGRAPHY WITH CAD CLINICAL INFORMATION: SCREENING HISTORY: Screening mammogram. No current complaints. COMPARISON: 2023 TECHNIQUE: Bilateral CC and MLO views. FINDINGS: The breasts are composed of heterogeneous fibroglandular density tissue, which can limit the detection of small underlying mass lesions. No suspicious mass, asymmetry, calcifications, or architectural distortion. No evidence of malignancy. Benign calcifications bilaterally. MM/MM [facility] tomosynthesis [id number] IMPRESSION: DENSITY: The breasts are heterogeneously dense, which may obscure small masses. BI-RADS: 2 - Benign FOLLOW UP: 1 Year Follow-up Recommend return to annual screening mammography.
--- NOTE | 2024-05-30 13:08 | XR_ITS ---
WS: [id number] SCREENING DEXA SCAN [facility] CLINICAL INFORMATION: POSTMENOPAUSAL COMPARISON: 2017 FINDINGS: The L1-L4 bone mineral density measures 1.016 g/cm2. This corresponds to a T score score of -1.4 and Z score of 0.3. Left femoral neck bone mineral density measures 0.625 g/cm2. This corresponds to a T score of -3.0 and Z score of -1.7. Right femoral neck bone mineral density measures 0.669 g/cm2. This corresponds to a T score -2.7of and Z score of -1.4. Mean femoral neck bone mineral density measures 0.647 g/cm2. This corresponds to a T score of -2.9 and Z score of -1.6. XR/XR DEXA axial skeleton* [id number] IMPRESSION: Osteopenia lumbar spine. Osteoporosis femoral necks. Patient's FRAX calculated 10 year probability for major osteoporotic fracture i s 30.8% and osteoporotic hip fracture is 11.0%. Bone marrow density lumbar spine decreased -8.6% Bone mineral density femoral necks decreased -28.3%
== END 2024-05-30 13:04 | disposition home or self-care (01) ==
LOC: RAD 13:07
PROVIDERS: PCP Physician Assistant; Visit Provider Physician Assistant
DX: Z12.31 Encounter for screening mammogram for malignant neoplasm of breast (principal); Z78.0 Asymptomatic menopausal state; R92.333 Mammographic heterogeneous density, bilateral breasts; R92.1 Mammographic calcification found on diagnostic imaging of breast
CPT/HCPCS: 77063; 77067; 77080

== ENCOUNTER 2024-06-06 10:59 | Outpatient (CLI) | payer MEDICARE, MEDICAID, SELFPAY ==
--- NOTE | 2024-06-06 11:04 | CT_ITS ---
WS: [id number] LDCT LUNG CANCER SCREENING TECHNIQUE: Noncontrast CT of the chest with coronal and sagittal reformatted images. CLINICAL INFORMATION: HX OF TOBACCO USE COMPARISON: 01/05/2023 DLP: 56.49 mGy.cm DIvol: Mean CTDIvol: 1.10 (mGy) All CT scans at [facility] use at least one of these dose optimization techniques: automated exposure control; mA and/or kV adjustment per patient size (includes targeted exams where dose is matched to clinical indication); or iterative reconstruction. FINDINGS: Prior RIGHT upper lobectomy with treatment related changes about the RIGHT hilum. A few prominent pretracheal lymph nodes unchanged. Mild to moderate chronic emphysematous change. No new suspicious pulmonary parenchymal abnormalities. Traction bronchiectasis RIGHT upper lobe. Slight bibasilar atelectasis. Scattered tree-in-bud opacities likely inflammatory. Aortic calcification. Coronary calcification. Small esophageal hiatal hernia. Adrenal glands are normal. Prior cholecystectomy. . CT/CT lung screening [id number] IMPRESSION: LUNG-RADS: 2-Benign Appearance or Behavior FOLLOW UP: 12 Month: Continue annual screening with LDCT
== END 2024-06-06 11:00 | disposition home or self-care (01) ==
LOC: RAD 11:00
PROVIDERS: PCP Physician Assistant; Visit Provider Physician Assistant
DX: Z12.2 Encounter for screening for malignant neoplasm of respiratory organs (principal); Z87.891 Personal history of nicotine dependence; Z98.890 Other specified postprocedural states; R59.0 Localized enlarged lymph nodes; J43.9 Emphysema, unspecified; J47.9 Bronchiectasis, uncomplicated; J98.11 Atelectasis; J98.4 Other disorders of lung; I70.0 Atherosclerosis of aorta; I25.10 Atherosclerotic heart disease of native coronary artery without angina pectoris; K44.9 Diaphragmatic hernia without obstruction or gangrene; Z90.49 Acquired absence of other specified parts of digestive tract
CPT/HCPCS: 71271

== ENCOUNTER → 2024-10-15 14:50 | Outpatient (BNVA) | payer MEDICARE, MEDICAID, SELFPAY | PROVIDERS: PCP Physician Assistant; Visit Provider Registered Nurse Neonatal Intensive Care | DX: R30.0 Dysuria (principal) | CPT/HCPCS: 81000; 87086 ==

== ENCOUNTER 2024-12-03 18:07 | Emergency (ER) | payer OTHER, MEDICAID, SELFPAY ==
[2024-12-03 18:10] VITALS: BP 120/86; PULSE 103; RESP 16; TEMP 36.7; O2SAT 96; BMI 23.0
--- OUTSIDE RECORDS SUMMARY | 2024-12-03 18:15 | XMS_ITS | Patient Health Record ---
Author Organization [facility] Address [address] [place] [address] Care Team Providers Care [employer] Supervisor Name Role Phone Nieves Miller Primary Care Provider UnavailIrasema Vivas Unavailable [phone] Migration, Provider Unavailable Unavailable Humberto Grover Unavailable [phone] Hansa Patel Unavailable [phone] Allergies Allergen (clinical drug ingredient) Drug/Non Drug Allergy documented on EMR Reaction Allergy Type Onset Date Status Substance with sulfonamide structure and antibacterial mechanism of action (substance) Sulfa Antibiotics siezures Drug Allergy Active Results Component Value Reference Range Flag Notes IPMA Saliva Drug Screen Reviewed date:10/07/2024 02:11:40 PM Interpretation: Performing Lab: Notes/Report: Tox Results Reviewed date:08/09/2024 03:01:28 PM Interpretation: Performing Lab: Notes/Report: Urine Drug Screen (cup read) - [id number] Reviewed date:07/14/2024 01:37:05 PM Interpretation: Performing Lab: Notes/Report: OXY + Urine Drug Screen (cup read) - [id number] Reviewed date:05/05/2024 10:33:28 AM Interpretation: Performing Lab: Notes/Report: OXY + zzzUrine Drug Screen (confir mation by instrument) - [id number] Reviewed date:04/13/2024 04:09:16 PM Interpretation: Performing Lab: Notes/Report: Urine Drug Screen (cup read) - [id number] Reviewed date:08/04/2024 08:46:01 AM Interpretation: Performing Lab: Notes/Report: OXY Pos Urine Confirmation Panel (in strument) - [id number] Reviewed date:08/09/2024 02:50:08 PM Interpretation: Performing Lab: Notes/Report: 6-Acetylmorphine 0 <6 ng/mL N This colby t was developed and its performance characteristics determined by [facility]. It has not been cleared or approved by the U.S. Food and Drug Administration. 7-Aminoclonazepam 0 <60 ng/mL N This te st was developed and its performance characteristics determined by [facility]. It has not been cleared or approved by the U.S. Food and Drug Administration. Alprazolam 0 <60 ng/mL N This test was developed and its performance characteristics determined by [facility]. It has not been cleared or approved by the U.S. Food and Drug Administration. Amphetamine 0 <75 ng/mL N This test was developed and its performance characteristics determined by [facility]. It has not been cleared or approved by the U.S. Food and Drug Administration. aOH-Alprazolam 0 <60 ng/mL N This test was developed and its performance characteristics determined by [facility]. It has not been cleared or approved by the U.S. Food and Drug Administration. Buprenorphine 0.0 <7.5 ng/mL N This test w as developed and its performance characteristics determined by [facility]. It has not been cleared or approved by the U.S. Food and Drug Administration. Norbuprenorphine 0.0 <37.5 ng/mL N This te st was developed and its performance characteristics determined by [facility]. It has not been cleared or approved by the U.S. Food and Drug Administration. Carisoprodol 0 <75 ng/mL N This test wa s developed and its performance characteristics determined by [facility]. It has not been cleared or approved by the U.S. Food and Drug Administration. Codeine 0 <75 ng/mL N This test was developed and its performance characteristics determined by [facility]. It has not been cleared or approved by the U.S. Food and Drug Administration. EDDP 0 <75 ng/mL N This test was developed and its performance characteristics determined by [facility]. It has not been cleared or approved by the U.S. Food and Drug Administration. Fentanyl 0 <6 ng/mL N This test was developed and its performance characteristics determined by [facility]. It has not been cleared or approved by the U.S. Food and Drug Administration. Hydrocodone 0 <75 ng/mL N This test was developed and its performance characteristics determined by [facility]. It has not been cleared or approved by the U.S. Food and Drug Administration. Hydromorphone 0 <75 ng/mL N This test w as developed and its performance characteristics determined by [facility]. It has not been cleared or approved by the U.S. Food and Drug Administration. Lorazepam 0 <60 ng/mL N This test was developed and its performance characteristics determined by [facility]. It has not been cleared or approved by the U.S. Food and Drug Administration. MDMA 0 <75 ng/mL N This test was developed and its performance characteristics determined by [facility]. It has not been cleared or approved by the U.S. Food and Drug Administration. Meperidine 0.0 <37.5 ng/mL N This test was developed and its performance characteristics determined by [facility]. It has not been cleared or approved by the U.S. Food and Drug Administration. Meprobamate 0 <75 ng/mL N This test was developed and its performance characteristics determined by [facility]. It has not been cleared or approved by the U.S. Food and Drug Administration. Methamphetamine 0 <75 ng/mL N This test was developed and its performance characteristics determined by [facility]. It has not been cleared or approved by the U.S. Food and Drug Administration. Methadone 0 <75 ng/mL N This test was developed and its performance characteristics determined by [facility]. It has not been cleared or approved by the U.S. Food and Drug Administration. Morphine 0 <75 ng/mL N This test was developed and its performance characteristics determined by [facility]. It has not been cleared or approved by the U.S. Food and Drug Administration. Nordiazepam 0 <60 ng/mL N This test was developed and its performance characteristics determined by [facility]. It has not been cleared or approved by the U.S. Food and Drug Administration. Norfentanyl 0 <6 ng/mL N This test was developed and its performance characteristics determined by [facility]. It has not been cleared or approved by the U.S. Food and Drug Administration. Normeperidine 0.0 <37.5 ng/mL N This test was developed and its performance characteristics determined by [facility]. It has not been cleared or approved by the U.S. Food and Drug Administration. O-desmethyltramadol 0 <75 ng/mL N This test was developed and its performance characteristics determined by [facility]. It has not been cleared or approved by the U.S. Food and Drug Administration. Oxazepam 0 <60 ng/mL N This test was developed and its performance characteristics determined by [facility]. It has not been cleared or approved by the U.S. Food and Drug Administration. Oxycodone 744.3 <37.5 ng/mL H This test was developed and its performance characteristics determined by [facility]. It has not been cleared or approved by the U.S. Food and Drug Administration. Oxymorphone 403 <75 ng/mL H This test was developed and its performance characteristics determined by [facility]. It has not been cleared or approved by the U.S. Food and Drug Administration. Phencyclidine 0.0 <7.5 ng/mL N This test w as developed and its performance characteristics determined by [facility]. It has not been cleared or approved by the U.S. Food and Drug Administration. Tapentadol 0.0 <37.5 ng/mL N This test was developed and its performance characteristics determined by [facility]. It has not been cleared or approved by the U.S. Food and Drug Administration. Temazepam 0 <60 ng/mL N This test was developed and its performance characteristics determined by [facility]. It has not been cleared or approved by the U.S. Food and Drug Administration. Tramadol 0 <75 ng/mL N This test was developed and its performance characteristics determined by [facility]. It has not been cleared or approved by the U.S. Food and Drug Administration. Norhydrocodone 0 <75 ng/mL N This test was developed and its performance characteristics determined by [facility]. It has not been cleared or approved by the U.S. Food and Drug Administration. Noroxycodone >2500 <38 ng/mL > This test wa s developed and its performance characteristics determined by [facility]. It has not been cleared or approved by the U.S. Food and Drug Administration. Pregabalin 0 <225 ng/mL N This test was developed and its performance characteristics determined by [facility]. It has not been cleared or approved by the U.S. Food and Drug Administration. Gabapentin >46898 <225 ng/mL > This test was developed and its performance characteristics determined by [facility]. It has not been cleared or approved by the U.S. Food and Drug Administration. Benzoylecgonine 0.0 <37.5 ng/mL N This colby t was developed and its performance characteristics determined by [facility]. It has not been cleared or approved by the U.S. Food and Drug Administration. 4-Hydroxy Xylazine 0 <25 ng/mL N This t est was developed and its performance characteristics determined by [facility]. It has not been cleared or approved by the U.S. Food and Drug Administration. Reason For Referral No Information Medications Medication SIG (Take, Route, Frequency, Duration) Notes Start Date End Date Status Albuterol Sulfate *Pick strength-form from [facility] for eRX* Active oxyCODONE-Acetaminoph en 7.5-325 MG Tablet 0.5-1 tablet Orally every 8 hrs; Duration: 30 days As needed Do not exceed 1.5 per day Fill on 11-12-24 10/03/2024 12/12/2024 Active Levothyroxine *Reorder from [facility] for eRx and Interaction Alerts* Active Latuda *Pick strength-form from [facility] for eRX* Active Gabapentin *Pick strength-form from [facility] for eRX* Active Effexor XR *Pick strength-form from [facility] for eRX* Active donepezil *Reorder from [facility] for eRx and Interaction Alerts* Active Breztri Aerosphere *Pick strength-form from [facility] for eRX* Active atorvastatin *Reorder from [facility] for eRx and Interaction Alerts* Active Social History Social History Additional Details Category Social Info Options Details Migrated Social History Migrated Social History Currently on disability? - Yes, If yes, frequency of nonprescription drug use - Marijuana, Nonprescription drug use? - Yes Problems Problem Type SNOMED Code ICD Code Onset Dates Problem Status W/U Status Risk Notes Problem Polyneuropathy (18856794) Polyneuropathy, unspecified (G62.9) 09/15/19 Active confirmed Problem Chronic pain syndrome (186803701) Chronic pain syndrome (G89.4) 09/15/19 Active confirmed Problem Lumbosacral spondylosis without myelopathy (41516919) Other spondylosis with radiculopathy, lumbosacral region (M47.27) 09/15/19 Active confirmed Problem Spinal stenosis in cervical region (16299785) Spinal stenosis, cervical region (M48.02) 09/15/19 Active confirmed Problem Degeneration of cervical intervertebral disc (14073566) Other cervical disc degeneration, unspecified cervical region (M50.30) 09/15/19 Active confirmed Problem Degeneration of lumbar intervertebral disc (96077167) Other intervertebral disc degeneration, lumbar region (M51.36) 09/15/19 Active confirmed Problem Cervical radiculopathy (53108894) Radiculopathy, cervical region (M54.12) 09/15/19 Active confirmed Problem Abnormal gait (29478493) Unspecified abnormalities of gait and mobility (R26.9) 09/15/19 Active confirmed Problem Lumbosacral spondylosis with radiculopathy (371286562) Lumbosacral spondylosis with radiculopathy (M47.27) Active confirmed Problem Cervical disc disorder (082440466) DDD (degenerative disc disease), cervical (M50.30) Active confirmed Problem Spinal stenosis in cervical region (disorder) (84891331) Foraminal stenosis of cervical region (M48.02) Active confirmed Problem Abnormal gait (56433197) Abnormality of gait and mobility (R26.9) Active confirmed Problem 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) Active confirmed Problem Lumbosacral radiculopathy (1222231) L-S radiculopathy (M54.17) Active confirmed Problem Lumbosacral spondylosis (032042599) Lumbosacral spondylosis (M47.817) Active confirmed Vital Signs Height-cm 157.48 cm 10/03/2024 Weight-kg 58.97 kg 10/03/2024 Height 62.00 in 10/03/2024 Weight 130 lbs 10/03/2024 BMI 23.77 kg/m2 10/03/2024 Procedures Procedure Date Ordered Date Performed Result Body Sit e Epidural, Cervical/ Thoracic , w/ imaging guidance - [id number] 06/14/2024 06/14/2024 N/A Encounters Encounter Location Date Provider Diagnosis [facility] [place] [address] [place] [address] 08/04/2024 Hansa Patel Chronic pain syndrom e G89.4 ; Drug-induced peripheral neuropathy G62.0 ; Other cervical disc degeneration, unspecified cervical region M50.30 ; Other spondylosis with radiculopathy, lumbosacral region M47.27 ; Radiculopathy, cervical region M54.12 ; Spinal stenosis, cervical region M48.02 ; Degeneration of intervertebral disc of lumbar region with discogenic back pain M51.360 ; L-S radiculopathy M54.17 ; Polyneuropathy, unspecified G62.9 ; Unspecified abnormalities of gait and mobility R26.9 ; jail (current) use of opiate analgesic Z79.891 and Lumbosacral spondylosis M47.817 [facility] [address] [address] 07/14/2024 Hansa Patel Chronic pain syndrom e G89.4 ; Drug-induced peripheral neuropathy G62.0 ; Other cervical disc degeneration, unspecified cervical region M50.30 ; Other spondylosis with radiculopathy, lumbosacral region M47.27 ; Radiculopathy, cervical region M54.12 ; Spinal stenosis, cervical region M48.02 ; Degeneration of intervertebral disc of lumbar region with discogenic back pain M51.360 ; L-S radiculopathy M54.17 ; Lumbosacral spondylosis M47.817 ; Polyneuropathy, unspecified G62.9 ; Unspecified abnormalities of gait and mobility R26.9 ; jail (current) use of opiate analgesic Z79.891 and Other intervertebral disc degeneration, lumbar region M51.36 [facility] [address] [address] 05/05/2024 Hansa Patel Chronic pain syndrom e G89.4 ; Drug-induced peripheral neuropathy G62.0 ; Other cervical disc degeneration, unspecified cervical region M50.30 ; Radiculopathy, cervical region M54.12 ; Spinal stenosis, cervical region M48.02 ; Degeneration of intervertebral disc of lumbar region with discogenic back pain M51.360 ; L-S radiculopathy M54.17 ; Lumbosacral spondylosis M47.817 and jail (current) use of opiate analgesic Z79.891 [facility] [place] [address] [place] [phone] 04/07/2024 Hansa Patel Chronic pain syndrom e G89.4 ; Drug-induced peripheral neuropathy G62.0 ; Other cervical disc degeneration, unspecified cervical region M50.30 ; Radiculopathy, cervical region M54.12 ; Spinal stenosis, cervical region M48.02 ; Degeneration of intervertebral disc of lumbar region with discogenic back pain M51.360 ; L-S radiculopathy M54.17 ; Lumbosacral spondylosis M47.817 and jail (current) use of opiate analgesic Z79.891 [facility] [address] [address] 03/10/2024 Hansa Patel Chronic pain syndrom e G89.4 ; Drug-induced peripheral neuropathy G62.0 ; Other cervical disc degeneration, unspecified cervical region M50.30 ; Radiculopathy, cervical region M54.12 ; Spinal stenosis, cervical region M48.02 ; Degeneration of intervertebral disc of lumbar region with discogenic back pain M51.360 ; L-S radiculopathy M54.17 ; Lumbosacral spondylosis M47.817 and jail (current) use of opiate analgesic Z79.891 [facility] [address] [address] 02/10/2024 Humberto Grover Chronic pain syndrom e G89.4 ; DDD (degenerative disc disease), cervical M50.30 ; Foraminal stenosis of cervical region M48.02 ; Radiculopathy, cervical region M54.12 ; Degeneration of intervertebral disc of lumbar region with discogenic back pain and lower extremity pain M51.362 ; L-S radiculopathy M54.17 ; Lumbosacral spondylosis M47.817 and 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 superintendent (current) use of opiate analgesic Z79.891 [facility] [address] [place] [address] 06/14/2024 Humberto Grover Radiculopathy, cervical region M54.12 [facility] [address] [place] [address] 10/03/2024 Niger Joe Chronic pain syndrom e G89.4 ; DDD (degenerative disc disease), cervical M50.30 ; Foraminal stenosis of cervical region M48.02 ; Radiculopathy, cervical region M54.12 ; Degeneration of intervertebral disc of lumbar region with discogenic back pain and lower extremity pain M51.362 ; L-S radiculopathy M54.17 ; Lumbosacral spondylosis M47.817 and terminal superintendent (current) use of opiate analgesic Z79.891 [facility]rated[facility]Facility 0 0 01/24/2024 Provider Migration [facility]Fac[facility] 0 0 01/23/2024 Provider Migration [facility] [address] [place] [address] 10/03/2024 Humberto Grover Lumbosacral spondylosis with radiculopathy M47.27 [facility] [place] [address] [place] [phone] 08/04/2024 Humberto Charlest Lumbosacral spondylosis with radiculopathy M47.27 [facility] [place] [address] [place] [phone] 07/14/2024 Humberto Charlest Lumbosacral spondylosis with radiculopathy M47.27 [facility] [place] [address] [place] [phone] 05/05/2024 Humberto Grover Chronic pain syndrom e G89.4 [facility] [address] [place] [address], [place] [address] 04/07/2024 Humberto Charlest Chronic pain syndrom e G89.4 [facility] [place] [address] [place] [phone] 03/10/2024 Humberto Charlest Chronic pain syndrom e G89.4 Assessments Encounter Date Diagnosis (ICD Code) Assessment Notes Treatment Notes Treatment Clinical Notes Section Notes 07/14/2024 Lumbosacral spondylosis with radiculopathy (ICD-10 - M47.27) 08/04/2024 Chronic pain syndrome (ICD-10 - G89.4) I had a nice discussion with the patient today regarding her chronic pain complaints. She states she continues to do well with her neck pain as well as radicular symptoms since her most recent TONY. She feels her lower back pain is relatively stable right now. She states she is doing reasonably well on her current medication regimen. She denies any changes in her health since we last seen her any untoward side effects of medication. She will continue her medication at present level and return to clinic in 2 months to monitor for treatment effectiveness and compliance. The patient continues with chronic pain requiring treatment to help restore function and improve quality of life. Risks of opioid therapy as well as interaction of opioids with alcohol, illicit drugs, muscle relaxers, and other sedative medications are reviewed briefly with patient again today. The patient has trialed all other reasonable treatment options and uses the medication to alleviate pain in order to remain active and rest with less pain. No clinically relevant medication side effects are noted. Last UDS and [place] ACCOUNTING SUPPORT SPECIALIST reviewed today. Patient is advised that best long-term goals include increased activity, core strengthening, proper weight management, coping strategies, avoidance of painful triggers, and targeted interventional therapy. We will see the patient for routine follow up in accordance with all clinic policies. We did remind patient today of current guidelines to decrease opioid when possible. We will continue to stress nonopioid treatment. RECOMMEND URINE TESTING TODAY Urine drug screening will be performed today to monitor compliance with opioid therapy or to serve as a baseline screen for a patient who may be a candidate for opioid therapy in the future, pending UDS results. We will monitor with in-office testing (rapid testing) today and review the results prior to dispensing prescription. All positive results will be sent for quantitative analysis to ensure accuracy and quantify amounts. Any expected positive results that return negative will also be sent for quantitative analysis. Any questionable read or any medication we cannot test for in the office confidently will be sent for quantitative analysis, as well. Patient has been made aware of this policy and agrees to abide by our urine testing policy. 08/04/2024 Drug-induced peripheral neuropathy (ICD-10 - G62.0) 08/04/2024 Lumbosacral spondylosis with radiculopathy (ICD-10 - M47.27) 10/03/2024 Chronic pain syndrome (ICD-10 - G89.4) I had a nice discussion with the patient today regarding her chronic pain complaints. She states that overall she is doing well. With the help of her medication, her pain is a little more tolerable to where she is more comfortable throughout the day. She denies any other major changes since the last visit and feels stable overall. I did review her last drug screen which was consistent with her treatment plan. I will go ahead and refill her medications for her and see her back in a couple of months to continue to monitor her progress. The patient continues with chronic pain requiring treatment to help restore function and improve quality of life. Risks of opioid therapy as well as interaction of opioids with alcohol, illicit drugs, muscle relaxers, and other sedative medications are reviewed briefly with patient again today. The patient has trialed all other reasonable treatment options and uses the medication to alleviate pain in order to remain active and rest with less pain. No clinically relevant medication side effects are noted. Last UDS and [place] ACCOUNTING SUPPORT SPECIALIST reviewed today. Patient is advised that best long-term goals include increased activity, core strengthening, proper weight management, coping strategies, avoidance of painful triggers, and targeted interventional therapy. We will see the patient for routine follow up in accordance with all clinic policies. We did remind patient today of current guidelines to decrease opioid when possible. We will continue to stress nonopioid treatment. 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 She states she is doing reasonably well on her current medication regimen. She is out of her medication 3 days early but states she does not recall self escalating. I did have a long discussion with her about how we must be able to show compliance through pill counts and drug screens in order to continue her medication. She continues with persistent yet reasonably stable Neck, Lower back, multiple joint pain but feels her medication helps with this. She denies any changes in her health since we last seen her any untoward side effects of the medication. She will continue her medication at present level and return to clinic in 1 month to monitor for treatment effectiveness and compliance. 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 She states she has had some return of her neck pain as well as radicular symptoms. She is done well with TONY's in the past noting greater than 50% relief for greater than 3 months. After discussion she would like to repeat TONY at C7-T1. She feels her medications working reasonably well for her. PDMP shows she continues to fill clonazepam. I did discuss this with her today. She states she has not been taking it but the pharmacy just keeps delivering it. I explained that she has to call and cancel this prescription because if she is filling it then we assume she is taking it and we would not be able to continue prescribing her pain medication. Her drug screens have not shown any benzodiazepines. She will return to clinic after procedure to monitor for treatment effectiveness and compliance. URINE TESTING TODAY; POINT OF SERVICE Urine drug screening will be performed today to monitor compliance with opioid therapy or to serve as a baseline screen for a patient who may be a candidate for opioid therapy in the future, pending UDS results. We will monitor with in-office testing (rapid testing) today and review the results prior to dispensing prescription, as well. Patient has been made aware of this policy. The patient continues with chronic pain requiring treatment to help restore function and improve quality of life. Risks of opioid therapy as well as interaction of opioids with alcohol, illicit drugs, muscle relaxers, and other sedative medications are reviewed briefly with patient again today. The patient has trialed all other reasonable treatment options and uses the medication to alleviate pain in order to remain active and rest with less pain. No clinically relevant medication side effects are noted. Last UDS and [employer] ACCOUNTING SUPPORT SPECIALIST reviewed today. Patient is advised that best long-term goals include increased activity, core strengthening, proper weight management, coping strategies, avoidance of painful triggers, and targeted interventional therapy. We will see the patient for routine follow up in accordance with all clinic policies. We did remind patient today of current guidelines to decrease opioid when possible. We will continue to stress nonopioid treatment. 05/05/2024 Drug-induced peripheral neuropathy (ICD-10 - G62.0) 05/05/2024 Chronic pain syndrome (ICD-10 - G89.4) 06/14/2024 Radiculopathy, cervical region (ICD-10 - M54.12) 07/14/2024 Chronic pain syndrome (ICD-10 - G89.4) I had a nice discussion with the patient today regarding her chronic pain complaints. She states she has done very well after her TONY and states it helped relieve her pain at least 50%. She does feel she is functioning better overall. She states her medications working reasonably well so she will continue that at present level. She denies any changes in her health since we last seen her any untoward side effects the medication. She will return to clinic in 2 months to monitor for treatment effectiveness and compliance. The patient continues with chronic pain requiring treatment to help restore function and improve quality of life. Risks of opioid therapy as well as interaction of opioids with alcohol, illicit drugs, muscle relaxers, and other sedative medications are reviewed briefly with patient again today. The patient has trialed all other reasonable treatment options and uses the medication to alleviate pain in order to remain active and rest with less pain. No clinically relevant medication side effects are noted. Last UDS and [employer] ACCOUNTING SUPPORT SPECIALIST reviewed today. Patient is advised that best long-term goals include increased activity, core strengthening, proper weight management, coping strategies, avoidance of painful triggers, and targeted interventional therapy. We will see the patient for routine follow up in accordance with all clinic policies. We did remind patient today of current guidelines to decrease opioid when possible. We will continue to stress nonopioid treatment. URINE TESTING TODAY; POINT OF SERVICE Urine drug screening will be performed today to monitor compliance with opioid therapy or to serve as a baseline screen for a patient who may be a candidate for opioid therapy in the future, pending UDS results. We will monitor with in-office testing (rapid testing) today and review the results prior to dispensing prescription, as well. Patient has been made aware of this policy. Refill oxyCODONE-Fletcher taminophen Tablet, 7.5-325 MG, 0.5-1 tablet, Orally, every 8 hrs, As needed Do not exceed 1.5 per day, 30 days, 45 tablets, Start Date: 07/15/2024, Stop Date: 08/14/2024, Refills 0, Notes to Pharmacist: Fill on 07/15/24 07/14/2024 Drug-induced peripheral neuropathy (ICD-10 - G62.0) 02/10/2024 Chronic pain syndrome (ICD-10 - G89.4) I had a nice visit with the patient today regarding her chronic pain issues. It appears that she has had some struggles lately with a fall and fractured her left knee cap. She is following up with orthopedics in a couple of weeks. She has been taking klonopin sparingly and I cautioned her against doing this in the future. She says she will stop taking that so we will see how this goes. We will provide continued medication with the Percocet and we will decrease the quantity. We will see her back in about a month. I also directed her to follow up with Dr. Sparrow as it sounds like she did not do that already. 02/10/2024 DDD (degenerative disc disease), cervical (ICD-10 - M50.30) 02/10/2024 Foraminal stenosis of cervical region (ICD-10 - M48.02) 07/14/2024 Other cervical disc degeneration, unspecified cervical region (ICD-10 - M50.30) 05/05/2024 Other cervical disc degeneration, unspecified cervical region (ICD-10 - M50.30) 04/07/2024 Other cervical disc degeneration, unspecified cervical region (ICD-10 - M50.30) 03/10/2024 Other cervical disc degeneration, unspecified cervical region (ICD-10 - M50.30) 10/03/2024 DDD (degenerative disc disease), cervical (ICD-10 - M50.30) 08/04/2024 Other cervical disc degeneration, unspecified cervical region (ICD-10 - M50.30) 08/04/2024 Other spondylosis with radiculopathy, lumbosacral region (ICD-10 - M47.27) 10/03/2024 Foraminal stenosis of cervical region (ICD-10 - M48.02) 03/10/2024 Radiculopathy, cervical region (ICD-10 - M54.12) 04/07/2024 Radiculopathy, cervical region (ICD-10 - M54.12) 05/05/2024 Radiculopathy, cervical region (ICD-10 - M54.12) 07/14/2024 Other spondylosis with radiculopathy, lumbosacral region (ICD-10 - M47.27) 02/10/2024 Radiculopathy, cervical region (ICD-10 - M54.12) 02/10/2024 Degeneration of intervertebral disc of lumbar region with discogenic back pain and lower extremity pain (ICD-10 - M51.362) 07/14/2024 Radiculopathy, cervical region (ICD-10 - M54.12) 05/05/2024 Spinal stenosis, cervical region (ICD-10 - M48.02) 04/07/2024 Spinal stenosis, cervical region (ICD-10 - M48.02) 03/10/2024 Spinal stenosis, cervical region (ICD-10 - M48.02) 10/03/2024 Radiculopathy, cervical region (ICD-10 - M54.12) 08/04/2024 Radiculopathy, cervical region (ICD-10 - M54.12) 08/04/2024 Spinal stenosis, cervical region (ICD-10 - M48.02) 10/03/2024 Degeneration of intervertebral disc of lumbar region with discogenic back pain and lower extremity pain (ICD-10 - M51.362) 03/10/2024 Degeneration of intervertebral disc of lumbar region with discogenic back pain (ICD-10 - M51.360) 04/07/2024 Degeneration of intervertebral disc of lumbar region with discogenic back pain (ICD-10 - M51.360) 05/05/2024 Degeneration of intervertebral disc of lumbar region with discogenic back pain (ICD-10 - M51.360) 07/14/2024 Spinal stenosis, cervical region (ICD-10 - M48.02) 02/10/2024 L-S radiculopathy (ICD-10 - M54.17) 02/10/2024 Lumbosacral spondylosis (ICD-10 - M47.817) 07/14/2024 Degeneration of intervertebral disc of lumbar region with discogenic back pain (ICD-10 - M51.360) 05/05/2024 L-S radiculopathy (ICD-10 - M54.17) 04/07/2024 L-S radiculopathy (ICD-10 - M54.17) 03/10/2024 L-S radiculopathy (ICD-10 - M54.17) 10/03/2024 L-S radiculopathy (ICD-10 - M54.17) 08/04/2024 Degeneration of intervertebral disc of lumbar region with discogenic back pain (ICD-10 - M51.360) 08/04/2024 L-S radiculopathy (ICD-10 - M54.17) 10/03/2024 Lumbosacral spondylosis (ICD-10 - M47.817) 03/10/2024 Lumbosacral spondylosis (ICD-10 - M47.817) 04/07/2024 Lumbosacral spondylosis (ICD-10 - M47.817) 05/05/2024 Lumbosacral spondylosis (ICD-10 - M47.817) 07/14/2024 L-S radiculopathy (ICD-10 - M54.17) 02/10/2024 jail (current) use of opiate analgesic (ICD-10 - Z79.891) 07/14/2024 Lumbosacral spondylosis (ICD-10 - M47.817) 05/05/2024 terminal superintendent (current) use of opiate analgesic (ICD-10 - Z79.891) 04/07/2024 terminal superintendent (current) use of opiate analgesic (ICD-10 - Z79.891) 03/10/2024 jail (current) use of opiate analgesic (ICD-10 - Z79.891) 10/03/2024 jail (current) use of opiate analgesic (ICD-10 - Z79.891) RECOMMEND SALIVA TESTING TODAY Saliva drug screening will be performed today to ensure compliance with opioid therapy, as well as screen for any illicit or nonprescribed medications/drugs . Sample will be sent for quantitative analysis to test for all prescribed medications. Patient has been made aware of this policy and agrees to abide by our saliva testing policy. 08/04/2024 Polyneuropathy, unspecified (ICD-10 - G62.9) 08/04/2024 Unspecified abnormalities of gait and mobility (ICD-10 - R26.9) 07/14/2024 Polyneuropathy, unspecified (ICD-10 - G62.9) 07/14/2024 Unspecified abnormalities of gait and mobility (ICD-10 - R26.9) 08/04/2024 terminal superintendent (current) use of opiate analgesic (ICD-10 - Z79.891) 08/04/2024 Lumbosacral spondylosis (ICD-10 - M47.817) 07/14/2024 terminal superintendent (current) use of opiate analgesic (ICD-10 - Z79.891) 07/14/2024 Other intervertebral disc degeneration, lumbar region (ICD-10 - M51.36) 02/10/2024 Other IRamon, am scribing for Humberto Grover. IHumberto, personally performed the services described in this documentation , as scribed by Ramon Gan, and it is both accurate and complete. Plan Of Treatment Next Appt Details Provider Name:Hansa terrazas, 12/08/2024 09:00:00 AM, [address] [place], [address], Insurance Providers Payer Name Payer Address Payer Phone Subscriber Number Group Number Insured Name Patient Relationship to Insured Coverage Start Date Coverage End Date [facility] Dual Complete [address] [place] [address] [id number] Manasa Shetty Self - patient is the insured [place] Medicaid QMB [address] [place] [address] [id number] Manasa Shetty Self - patient is the insured Medical (General) History Surgical History Surgery Date(Month/Year) ablasion section Lung surgery
[2024-12-03 19:41] VITALS: BP 163/81; PULSE 96; RESP 20; O2SAT 96
[2024-12-03] MEDS: LORazepam 1 MG/0.5 ML injection IM (20:06)
[2024-12-03] MEDS: HYDROmorphone tab 2 MG TABLET PO (21:06)
--- NOTE | 2024-12-03 21:06 | W.ED.GENADLT ---
HPI - General Adult General: Chief complaint: General Medical Stated complaint: neuropathy 10 on pain scale Time Seen by Provider: 12/03/24 18:50 Source: patient Mode of arrival: ambulatory Limitations: no limitations History of Present Illness: Patient is a 64-year-old female who presents the emergency department complaining of a neuropathy flareup. States that she is having diffuse pain throughout her body, rating a 10/10. States she has had similar and came here in the past where she received a shot of Ativan and this fix her symptoms. She takes approximately 1600 mg of gabapentin daily for neuropathy. Denies any other concerning symptoms, history of psychiatric care. Alert and oriented at this time, appears uncomfortable due to pain. MD complaint: Reporting neuropathy flare beginning today Severity: similar to prior episodes Severity scale (1-10): 10 Quality: constant Pain Consistency: constant Associated symptoms: Deny chest pain, dyspnea, headache(s), nausea, rash, palpitations or vomiting Related Data Home Medications ?Medication ?Instructions ?Recorded ?Confirmed ibuprofen 200 mg tablet 600 mg PO Q6H PRN PAIN 01/31/20 10/15/24 trazodone 50 mg tablet 50 mg PO BEDTIME 04/15/23 10/15/24 acetaminophen 500 mg tablet 1,000 mg PO Q6H PRN Pain 07/18/23 10/15/24 atorvastatin 40 mg tablet 40 mg PO DAILY 07/18/23 10/15/24 levothyroxine 112 mcg tablet 112 mcg PO DAILY 07/18/23 10/15/24 cyanocobalamin (vitamin B-12) 1,000 mcg SUBCUT Q30D 07/26/23 10/15/24 1,000 mcg/mL injection solution donepezil 23 mg tablet 23 mg PO DAILY 09/26/24 10/15/24 oxycodone-acetaminophen 7.5 mg-325 1 tab PO DAILY PRN pain 09/26/24 10/15/24 mg tablet Previous Rx's ?Medication ?Instructions ?Recorded gabapentin 800 mg tablet 800 mg PO TID 30 days #90 tabs 01/02/20 metoprolol tartrate 50 mg tablet 50 mg PO DAILY 30 days #30 tabs 01/02/20 albuterol sulfate 2.5 mg/3 mL 2.5 mg (3 mL) inhalation Q6H PRN 06/23/22 (0.083 %) solution for nebulization shortness of breath or wheezing #180 mL montelukast 10 mg tablet 10 mg PO DAILY 30 days #90 tabs 09/12/22 cholecalciferol (vitamin D3) 625 50,000 unit PO .weekly #14 caps 11/05/22 mcg (25,000 unit) capsule Bone growth stimulator #1 ea 03/18/23 budesonide 160 mcg-glycopyr 9 2 inh inhalation BID #10.7 grams 05/20/23 mcg-formot 4.8 mcg/actuation HFA inhaler (Breztri Aerosphere) albuterol sulfate 90 mcg/actuation 2 inh inhalation Q4H PRN shortness 08/11/23 aerosol inhaler of breath or wheezing #18 grams left knee blusto brace #1 ea 02/19/24 lurasidone 80 mg tablet 80 mg PO DAILY #30 tabs 09/26/24 venlafaxine 150 mg 300 mg (2 x 150 mg) PO QAM #60 caps 09/26/24 capsule,extended release 24 hr amoxicillin 875 mg-potassium 1 tab PO BID 7 days #14 tabs 10/15/24 clavulanate 125 mg tablet Allergies Allergy/AdvReac Type Severity Reaction Status Date / Time Sulfa (Sulfonamide Allergy ADR-Seizure Verified 10/15/24 14:25 Antibiotics) Review of Systems General: Reports: 10 or more systems reviewed and unremarkable except in HPI and below Const: Denies: fever(s), chills or fatigue Eyes: Denies: change in vision ENMT: Denies: throat pain, ear or mastoid pain or nasal discharge Card: Denies: chest pain, palpitations, swelling of feet/ankles or lightheadedness Resp: Denies: dyspnea, productive cough or wheezing GI: Denies: abdominal pain, nausea, vomiting, diarrhea or constipation : Denies: flank pain, difficulty voiding, dysuria or urinary frequency Musc: Reports: other (Reporting diffuse body pain) Skin/Breast: Denies: rash Neuro: Denies: headache(s), numbness in extremities or weakness in extremities PFSH ED PFSH: Medical History Tardive dyskinesia Memory change Bipolar I disorder, most recent episode mixed, in remission Psychiatric care Social History Smoking and tobacco/nicotine status: never used tobacco/nicotine Quit status (tobacco/nicotine): has quit using Year quit tobacco: 1993 Former quit date comment: 1 ppd X 27 years Alcohol intake: never Substance/Drug Use: never Physical Exam Const: COMMON NORMALS: patient oriented x3 and no limitations GENERAL APPEARANCE: cooperative ORIENTATION/CONSCIOUSNESS: Yes awake, Yes oriented to person, Yes oriented to place and Yes oriented to time OTHER: Appears uncomfortable secondary to pain, has all 4 extremities lifted in the air she states this helps. HENMT: COMMON NORMALS: normocephalic, atraumatic and hearing grossly normal bilaterally HEAD & SCALP: normocephalic and atraumatic Eye: COMMON NORMALS: Equal, round and reactive pupils present, EOMs intact bilaterally and conjunctivae normal CONJUNCTIVA: Yes conjunctivae normal PUPIL: Yes Equal, round and reactive pupils present Neck/C-Spine: COMMON NORMALS: full ROM, supple and no JVD Resp: COMMON NORMALS: normal respiratory effort, No retractions, No use of accessory muscles and clear to auscultation bilaterally AUSCULTATION: clear to auscultation bilaterally Cardio: COMMON NORMALS: no JVD, regular rate, regular rhythm, No clicks present (Cardio), No murmurs present (Cardio) and No rub (Cardio) RATE: regular rate RHYTHM: regular rhythm GI: COMMON NORMALS: Normal to inspection, nondistended, normoactive bowel sounds present, Soft to palpation and non-tender AUSCULTATION: Yes normoactive bowel sounds PALPATION: Yes Soft to palpation RECTAL EXAM: deferred Extremity: COMMON NORMALS: normal to inspection, full ROM and capillary refill normal Neuro: COMMON NORMALS: patient oriented x3, moves all extremities, no focal motor deficits and no sensory deficits noted SENSORIUM/ORIENTATION: Yes oriented to person, Yes oriented to place and Yes oriented to time Skin: COMMON NORMALS: no rashes or lesions noted GENERAL SKIN EXAM: no rashes or lesions noted Course Vital Signs: Vital signs: Vital Signs Temperature 98.0 F 12/03/24 18:10 Pulse Rate 76 12/03/24 21:57 Respiratory Rate 14 12/03/24 21:57 Blood Pressure 158/96 12/03/24 21:57 Pulse Oximetry 95 12/03/24 21:57 Oxygen Delivery Me thod Room Air 12/03/24 21:08 MDM - General Adult Medical Decision Making Patient presents to the emergency department stating she is having a neuropathy flare. States she has been seen here before and is given IM Ativan and this normally helps. She had no other symptoms to report, vital stable, other than her appearing uncomfortable and having all 4 extremities in the air during exam, she states that there is nothing new with her presentation. Takes gabapentin chronically. She is given IM Ativan and states this did not seem to help as much but after given Toradol and p.o. Dilaudid she states she feels well and ready to go home. Discharge at this time. No radiology studies performed this visit Discharge Plan Discharge Patient Disposition: Home Clinical Impression: Neuropathy Condition: Stable Prescriptions: No Action (DME) Bone growth stimulator See Rx Instructions .Route .MEDSUPPLY Qty: 1 0RF Rx Instructions: As directed (DME) left knee blusto brace See Rx Instructions .Route .MEDSUPPLY Qty: 1 0RF Rx Instructions: As directed donepezil 23 mg tablet 23 mg PO DAILY oxycodone-acetaminophen 7.5-325 mg tablet 1 tab PO DAILY PRN (Reason: pain) lurasidone 80 mg tablet 80 mg PO DAILY Qty: 30 2RF Rx Instructions: Take one tablet daily with meal/snack of at least 350 calories venlafaxine 150 mg capsule,extended release 24hr 300 mg PO QAM Qty: 60 2RF Rx Instructions: Take 2 capsules by mouth every morning albuterol sulfate 2.5 mg /3 mL (0.083 %) solution for nebulization 2.5 mg inhalation Q6H PRN (Reason: shortness of breath or wheezing) Qty: 180 11RF montelukast 10 mg tablet 10 mg PO DAILY 30 Days Qty: 90 3RF trazodone 50 mg tablet 50 mg PO BEDTIME cholecalciferol (vitamin D3) 625 mcg (25,000 unit) capsule 50,000 unit PO .weekly Qty: 14 2RF Breztri Aerosphere 160-9-4.8 mcg/actuation HFA aerosol inhaler 2 inh inhalation BID Qty: 10.7 3RF albuterol sulfate 90 mcg/actuation HFA aerosol inhaler 2 inh INHALATION Q4H PRN (Reason: shortness of breath or wheezing) Qty: 18 6RF amoxicillin-pot clavulanate 875-125 mg tablet 1 tab PO BID 7 Days Qty: 14 0RF gabapentin 800 mg tablet 800 mg PO TID 30 Days Qty: 90 0RF metoprolol tartrate 50 mg tablet 50 mg PO DAILY 30 Days Qty: 30 1RF ibuprofen 200 mg Tablet 600 mg PO Q6H PRN (Reason: PAIN) atorvastatin 40 mg tablet 40 mg PO DAILY acetaminophen 500 mg Tablet 1,000 mg PO Q6H PRN (Reason: Pain) levothyroxine 112 mcg tablet 112 mcg PO DAILY cyanocobalamin (vitamin B-12) 1,000 mcg/mL solution 1,000 mcg SUBCUT Q30D Discharge Orders: Discharge ED (Routine); Ordered 12/03/24 Ordered By: fJ Hawk Referrals: Nieves Anderson PA [Primary Care Provider, [facility]] Patient Instructions: Patient Portal & Claudine Instructions Activity Restrictions/Additional Instructions: Please continue taking your home medications as prescribed. Return with any new or worsening. Print Language: Georgian Coding Level of Care Code ED Billposter for Mckenzie Schwartz
[2024-12-03 21:08] VITALS: BP 172/96; PULSE 68; RESP 18; O2SAT 96
[2024-12-03 21:57] VITALS: BP 158/96; PULSE 76; RESP 14; O2SAT 95
== END 2024-12-03 21:58 | disposition home or self-care (01) ==
PROVIDERS: Emergency Provider Physician Assistant; PCP Physician Assistant
DX: G62.9 Polyneuropathy, unspecified (principal); G24.01 Drug induced subacute dyskinesia
CPT/HCPCS: 96372; 99284; J1885; J2060; J9999

== ENCOUNTER → 2024-12-12 09:41 | Outpatient (BNVA) | payer MEDICARE, OTHER, SELFPAY | PROVIDERS: PCP Physician Assistant; Visit Provider Nurse Practitioner Psychiatric/Mental Health | DX: Z79.899 Other long term (current) drug therapy (principal) | CPT/HCPCS: 80053; 80061; 83036 ==